=== PATIENT | female | born 1935 | race Caucasian/White ===

== ENCOUNTER → 2018-11-08 09:36 | Outpatient (CLI) | payer MEDICARE, SELFPAY | PROVIDERS: PCP Internal Medicine; Visit Provider Internal Medicine | DX: Z78.0 Asymptomatic menopausal state (principal) | CPT/HCPCS: 77080 ==

== ENCOUNTER → 2019-01-23 13:42 | Outpatient (CLI) | payer MEDICARE, SELFPAY ==
--- NOTE | 2019-01-23 | DI.ECHO.S_ITS ---
[facility] +---------+ : : [address] [place] : : : : [id number] : : : : Phone: [phone] Echocardiogram Report + :Name: BONILLA SOLIS Study Date: 01/23/2019 Height: 67 in : :[facility] Weight: 175 lb : : Gender: Female BSA: 1.9 m2 : :: 1935 Age: 83 yrs BP: 142/48 mmHg: :Reason For Study: Aortic valve replacement - bioprosthetic : :Ordering Physician: Dr. Jonny Boydformed By: Trina Varela : :Referring: Jing Pond : + Interpretation Summary Moderate concentric left ventricular hypertrophy with ejection fraction 60- 65%. Moderately dilated left atrium. The bioprosthetic aortic valve is well seated. Mild to moderate perivalvular aortic regurgitation. Moderate to severe mitral annular calcification. Mild mitral regurgitation. Comparison is made with the echocardiogram of 05-21-17, LV wall thickness has increased and aortic regurgitation has worsen. Procedure: A two-dimensional transthoracic echocardiogram with color flow and Doppler was performed. The study quality was technically good. Comparison is made with the echocardiogram of 05-21-17. The patient has a paced rhythm. Left Ventricle: The left ventricle is borderline dilated. There is moderate concentric left ventricular hypertrophy. The ejection fraction is estimated to be 60-65%. Septal motion is consistent with conduction abnormality. There are no other obvious focal wall motion abnormalities. Diastolic function could not be accurately assessed due to unobtainable data. Right Ventricle: The right ventricle grossly appears normal in size with probable normal systolic function. Atria: The left atrium is moderately dilated. Right atrial size is normal. The interatrial septum is intact with no evidence for an atrial septal defect. Mitral Valve: The mitral valve leaflets appear mildly thickened, but open well. There is moderate to severe mitral annular calcification. There is mild mitral regurgitation. Aortic Valve: There is a bioprosthetic aortic valve. The prosthetic aortic valve is well-seated. There is no aortic valve stenosis. The calculated aortic valve area is 1.1 cm2. The peak aortic velocity is 2.8 m/sec. The peak aortic velocity on the previous exam was 2.8 m/sec. The aortic valve mean gradient is 16 mmHg. There is mild to moderate aortic regurgitation. Tricuspid Valve: The tricuspid valve is normal in structure and function. There is trace tricuspid regurgitation. The right ventricular systolic pressure is estimated to be at least 27 mmHg based on an estimated right atrial pressure of 3 mm Hg. Pulmonic Valve: The pulmonic valve is normal in structure and function. There is trace pulmonic regurgitation. Great Vessels: The aortic root is normal size. The ascending aorta is normal in size. The aortic arch is at the upper limits of normal in size. The IVC is of normal diameter and collapses greater than 50% with a sniff. This suggests a low right atrial pressure of 3 mm Hg. Pericardium/ Pleura There is no pericardial effusion. There is no pleural effusion. MMode/2D Measurements & Calculations LVIDd: 5.8 cm LVOT diam: 1.9 cm LVIDs: 3.3 cm Ao root diam: 2.6 cm FS: 43.4 % Aortic Jxn: 2.9 cm EPSS: 1.5 cm asc Aorta Diam: 3.4 cm IVSd: 1.4 cm Ao Arch Diam (Prox Trans): 3.1 cm LVPWd: 0.75 cm LV evans. diameter/BSA (cm/m^2): 3.0 LV sys. diameter/BSA (cm/m^2): 1.7 LA dimension: 3.0 cm RA long axis: 4.9 cm LA A2 area: 25.0 cm2 RA area: 13.8 cm2 LA A4 area: 26.7 cm2 RA vol: 32.9 ml LA length (vol): 6.0 cm RA : 17.2 ml/m2 LA vol: 95.0 ml IVC diam: 1.1 cm LA vol index: 49.7 ml/m2 RVDd major: 5.6 cm RVD1 (basal): 3.0 cm RVD2 (mid): 2.9 cm Doppler Measurements & Calculations Ao V2 max: 281.1 cm/sec LVOT Max Scooby: 104.3 cm/sec Ao V2 mean: 181.2 cm/sec LV V1 max P.3 mmHg Ao max P.6 mmHg LV V1 VTI: 21.1 cm Ao mean P.6 mmHg SADE(I,D): 0.95 cm2 Ao V2 VTI: 66.3 cm SADE(V,D): 1.1 cm2 sev ratio: 0.32 SADE indexed to BSA (cm^2/m^2): 0.50 MV E max scooby: 117.5 cm/sec TR max scooby: 246.6 cm/sec MV A max scooby: 198.5 cm/sec TR max P.3 mmHg MV E/A: 0.59 PA V2 max: 90.1 cm/sec MV dec time: 0.28 sec PA V2 mean: 62.0 cm/sec MV P1/2t: 84.5 msec PA mean P.8 mmHg MVA(VTI): 1.4 cm2 PA Accel Time: 0.18 sec MV V2 mean: 107.3 cm/sec MV P1/2t max scooby: 119.6 cm/sec MV mean P.6 mmHg MVA(P1/2t): 2.6 cm2 MV V2 VTI: 45.8 cm SV(LVOT): 62.7 ml Electronically signed by: Jing Pond on Reading Physician:01/24/2019 10:08 AM
== END ==
PROVIDERS: PCP Internal Medicine; Referring Provider Internal Medicine Interventional Cardiology; Visit Provider Internal Medicine
DX: I08.0 Rheumatic disorders of both mitral and aortic valves (principal); Z95.2 Presence of prosthetic heart valve
CPT/HCPCS: 93306

== ENCOUNTER → 2019-07-21 14:11 | Outpatient (CLI) | payer MEDICARE, SELFPAY ==
[2019-07-21 15:16] LABS: HEMOLYSIS < 15 (0-50); Iron 99 ug/dL (37-170)
[2019-07-21 15:26] LABS: Percent Iron Saturation 28 % (15-50); Total Iron Binding Capacity 353 ug/dL (265-497); Transferrin 295 mg/dL (206-381)
[2019-07-21 17:22] LABS: Ferritin 20.6 ng/mL (11.1-264)
== END ==
PROVIDERS: PCP Internal Medicine; Visit Provider Internal Medicine
DX: D50.9 Iron deficiency anemia, unspecified (principal)
CPT/HCPCS: 36415; 82728; 83540; 83550

== ENCOUNTER 2020-01-07 13:33 | Emergency (ER) | payer MEDICARE, SELFPAY ==
[2020-01-07 14:01] VITALS: BP 143/65; PULSE 94; RESP 24; TEMP 36.4; O2SAT 100; BMI 25.0
--- NOTE | 2020-01-07 14:08 | ED.RECABL ---
HPI - Recheck/Abnormal Lab/Rx <SAMANTHA Shukla - Last Filed: 01/08/20 02:24> General Chief Complaint: Recheck/Abnormal Lab/Rx Stated Complaint: Wants Blood tested. Clinic is closed Time Seen by Provider: 01/07/20 13:47 Source: patient Mode of arrival: Ambulatory Limitations: no limitations History of Present Illness HPI narrative: This is a 84-year-old female, former smoker, who presents to ED with the family with chief complain of ongoing generalize weakness, fatigue and would like her blood count checked. Patient reports initial onset of gradual weakness and fatigue started about 3.5 years ago when she had trouble with aortic valve and had TAVR done at . Then she developed GI bleed in small intestine and had cauterization 3 times so far [address] Ferrara who practices in [facility] and had procedures done in [facility]. Patient states she had several camera colonoscopy in the past and last 1 was done in 08/04/2019 and another GI procedure was set up in November but this has been post bounded due to Covid 19 and them aches. Patient reports she has seen Dr. Nicolas, Metal Furniture Polisher, at [facility] during last fall and was told there was a small valve leakage and had echocardiogram scheduled 2 months ago which also has been postponed it. Patient denies chest pain, dyspnea, dizziness, blood in her stools or urine or abdominal discomfort. Patient states is not able to tolerate anticoagulants and currently takes baby aspirin daily along lisinopril, atorvastatin, and iron pills 3 times a day. Related Data Home Medications Medication Instructions Recorded Confirmed pravastatin 40 mg PO HS #0 03/31/16 11/30/18 FERROUS SULFATE (IRON) #0 01/22/17 11/30/18 lisinopril 10 mg PO QDAY #0 08/15/17 11/30/18 Allergies Allergy/AdvReac Type Severity Reaction Status Date / Time ezetimibe [EZETIMIBE] Allergy Unknown Verified 01/07/20 14:00 simvastatin [SIMVASTATIN] AdvReac Intermediate MYALGIAS Verified 01/07/20 14:00 Review of Systems <SAMANTHA Shukla - Last Filed: 01/08/20 02:24> Review of Systems Narrative: General: Denies fever, chills, (+) fatigue, malaise, sweats. HEENT: Denies sinus pain, ear pain, sore throat, difficulty swallowing, dizziness. Respiratory: Denies dyspnea, cough, wheezing, hemoptysis, sputum. Cardiovascular: Denies chest pain, palpitations, orthopnea, edema. Gastrointestinal: Denies nausea, vomiting, abdominal pain, diarrhea, constipation, melena. : Denies dysuria, frequency, incontinence, hematuria, urinary retention. Musculoskeletal: Denies weakness, joint pain or bony pain. Skin: Denies rash, skin lesions, or other. Neurologic: Denies weakness, headache, numbness, change in speech, confusion, seizures, incoordination. Psychiatric: No concerning psychosocial issues. 12-point review of systems is negative except for those stated above. Patient History <SAMANTHA Shukla - Last Filed: 01/08/20 02:24> Medical History (Updated 01/07/20 @ 15:31 by SAMANTHA Shukla) Hyperlipidemia (Acute) Hypertension (Acute) Surgical History (Updated 01/07/20 @ 14:15 by SAMANTHA Shukla) S/P TAVR (transcatheter aortic valve replacement) (Acute) Social History Smoking Status: Former smoker Smoking Status: Former smoker alcohol intake frequency: holidays/special occasions only Substance Use Type: does not use Exam <SAMANTHA Shukla - Last Filed: 01/08/20 02:24> Narrative Exam Narrative: GEN: Alert, oriented x 3, well appearing and nourished, and in no acute distress. Head: Normal cephalic, atraumatic. No scalp or temporal tenderness, palpable mass or rash. EYES: Pupils are equal, round, and reactive to light and accommodation. Extraocular muscles are intact bilaterally. There is no subconjunctival hemorrhage, exudate and sclera non-icteric with light pink conjunctival. ENT: Hearing grossly intact. Nose without bleeding, purulent discharge or deviation. Facial sinuses nontender to palpate. Mucous membrane moist, no mucosal lesion. Throat without erythema, tonsillar hypertrophy or exudate. Uvula in midline, airway patent. Neck: Trachea in midline. No JVD, non-tender without lymphadenopathy. No masses or thyroid megaly. Supple, non-tender and no meningeal signs. CARDIAC: Normal regular rate and rhythm without gallops, or rubs but with murmur. No chest wall tenderness. No peripheral edema, cyanosis or pallor. Capillary refill is less than 2 seconds. RESPIRATORY: Lungs are clear to auscultate bilaterally. No cough, wheezes, rales, or rhonchi. No stridor, respiratory distress, increase work of breathing, or accessary muscle used. ABD: Abdomen soft, nontender and non-distended. No guarding or rebound tenderness to palpate. Bowel sounds are normal in all 4 quadrants. There is no palpable masses or organomegaly. EXT: Full painless ROM of all extremities with no loss of sensation, strength, effusion or edema. SKIN: Warm, dry, normal color for patient. No erythema, lesions or rash over visible areas. BACK: Nontender without deformity or crepitance. No flank tenderness. NEUROLOGICAL: Alert and oriented to place, time and person. Sensation and motor function intact bilaterally. No facial droops, dysphasia. PSYCHIATRIC: Good judgement and reason, without hallucinations, abnormal affect or abnormal behaviors during the examination. Initial Vital Signs Initial Vital Signs: Vital Signs Temperature 97.6 F 01/07/20 14:01 Pulse Rate 94 H 01/07/20 14:01 Respiratory Rate 24 01/07/20 14:01 Blood Pressure 143/65 H 01/07/20 14:01 Pulse Oximetry 100 01/07/20 14:01 <Pooja Stokes MD - Last Filed: 01/13/20 21:05> Initial Vital Signs Initial Vital Signs: Vital Signs Temperature 97.6 F 01/07/20 14:01 Pulse Rate 94 H 01/07/20 14:01 Respiratory Rate 24 01/07/20 14:01 Blood Pressure 143/65 H 01/07/20 14:01 Pulse Oximetry 100 01/07/20 14:01 Scores <SAMANTHA Shukla - Last Filed: 01/08/20 02:24> GCS Chinedu coma scale eye opening: Spontaneous Chinedu coma scale verbal response: Orientated Chinedu coma scale motor response: Obey commands Chinedu coma scale total score: 15 Course <SAMANTHA Shukla - Last Filed: 01/08/20 02:24> Orders Ordered: ED Orders 01/07/20 13:50 Complete Blood Count AUTO DIFF Stat Comprehensive Metabolic Panel Stat Lipase Stat Partial Thromboplastin Time Stat Prothrombin Time INR Stat Type and Screen Stat Vital Signs Vital signs: Vital Signs - 8 hr 01/07/20 14:01 Temperature 97.6 F Pulse Rate 94 H Respiratory Rate 24 Blood Pressure 143/65 H Pulse Oximetry 100 <Pooja Stokes MD - Last Filed: 01/13/20 21:05> Orders Ordered: ED Orders 01/07/20 13:50 Complete Blood Count AUTO DIFF Stat Comprehensive Metabolic Panel Stat Lipase Stat Partial Thromboplastin Time Stat Prothrombin Time INR Stat Type and Screen Stat Vital Signs Vital signs: Vital Signs - 8 hr 01/07/20 14:01 Temperature 97.6 F Pulse Rate 94 H Respiratory Rate 24 Blood Pressure 143/65 H Pulse Oximetry 100 MDM - Recheck/Abnormal Lab/Rx <SAMANTHA Shukla - Last Filed: 01/08/20 02:24> Differential Diagnosis Differential diagnosis: Likely other (Anemia, GI bleed, electrolyte imbalance, acute kidney injury, dehydration) Medical Records Attestation: I reviewed the patient's medical records. Lab Data Attestation: I reviewed the patient's lab results. Result diagrams: 01/07/20 13:50 01/07/20 13:50 Labs: Lab Results 01/07/20 01/07/20 01/07/20 Range/Units 13:50 13:50 13:50 WBC 10.0 (4.5-11.0) X10^3/uL RBC 2.85 L (4.0-5.2) X10^6/uL Hgb 9.2 L (12.0-16.0) g/dL Hct 26.8 L (36-46) % MCV 94.2 (80-100) fL MCH 32.2 (26-34) PG MCHC 34.2 (30-36) % RDW 14.4 (11.6-14.8) % Plt Count TNP Neut % (Auto) 78.3 H (50-75) % Lymph % (Auto) 12.4 L (25-40) % [place] % (Auto) 6.9 (3-14) % Eos % (Auto) 1.4 L (2-4) % Baso % (Auto) 1.0 (0-2) % Neut # (Auto) 7800 H (0699-5772) /uL Lymph # (Auto) 1200 (5872-5601) /uL [place] # (Auto) 700 (0-900) /uL Eos # (Auto) 100 (0-450) /uL Baso # (Auto) 100 (0-100) /uL Platelet Estimate Adequate on smear RBC Morphology Normal morphology PT 12.4 (10.1-12.7) SECONDS INR 1.1 (0.9-1.3) APTT 22 L (26.4-36.2) SECONDS Sodium 129 L (137-145) mmol/L Potassium 4.6 (3.4-5.1) mmol/L Chloride 99 (98-107) mmol/L Carbon Dioxide 19 L (22-32) mmol/L BUN 25 H (7-17) mg/dL Creatinine 1.06 H (0.52-1.04) mg/dL Estimated GFR 49.5 L (>60) mL/min BUN/Creatinine Ratio 23.6 H (6-22) Glucose 133 H (80-110) mg/dL Calcium 9.6 (8.4-10.2) mg/dL Total Bilirubin 0.3 (0.2-1.3) mg/dL AST 30 (14-36) IU/L ALT 14 (<35) IU/L Alkaline Phosphatase 103 (38-126) U/L Total Protein 8.1 (6.3-8.2) g/dL Albumin 4.6 (3.5-5.0) g/dL Globulin 3.5 (1.7-4.1) g/dL Albumin/Globulin Ratio 1.3 (1.0-2.8) Lipase 229 (23-300) U/L Blood Type Antibody Screen Antibody Identification Direct Antiglob Test 01/07/20 Range/Units 13:50 WBC (4.5-11.0) X10^3/uL RBC (4.0-5.2) X10^6/uL Hgb (12.0-16.0) g/dL Hct (36-46) % MCV (80-100) fL MCH (26-34) PG MCHC (30-36) % RDW (11.6-14.8) % Plt Count Neut % (Auto) (50-75) % Lymph % (Auto) (25-40) % [place] % (Auto) (3-14) % Eos % (Auto) (2-4) % Baso % (Auto) (0-2) % Neut # (Auto) (2833-1588) /uL Lymph # (Auto) (3180-3610) /uL [place] # (Auto) (0-900) /uL Eos # (Auto) (0-450) /uL Baso # (Auto) (0-100) /uL Platelet Estimate RBC Morphology PT (10.1-12.7) SECONDS INR (0.9-1.3) APTT (26.4-36.2) SECONDS Sodium (137-145) mmol/L Potassium (3.4-5.1) mmol/L Chloride (98-107) mmol/L Carbon Dioxide (22-32) mmol/L BUN (7-17) mg/dL Creatinine (0.52-1.04) mg/dL Estimated GFR (>60) mL/min BUN/Creatinine Ratio (6-22) Glucose (80-110) mg/dL Calcium (8.4-10.2) mg/dL Total Bilirubin (0.2-1.3) mg/dL AST (14-36) IU/L ALT (<35) IU/L Alkaline Phosphatase (38-126) U/L Total Protein (6.3-8.2) g/dL Albumin (3.5-5.0) g/dL Globulin (1.7-4.1) g/dL Albumin/Globulin Ratio (1.0-2.8) Lipase (23-300) U/L Blood Type AB Positive Antibody Screen Positive Antibody Identification Anti-M Direct Antiglob Test Negative MDM Narrative Medical decision making narrative: 84-year-old female who presents to ED in request of blood test to check her anemia since she was having ongoing generalized weakness for last 6 months without chest pain, breathing difficulty, dizziness, or bright red rectal bleeding. Patient reports she has been having GI bleed and had 3 cauterizing procedures done in small intestine by who practices in [facility] but who does procedures in [facility]. Patient was scheduled for another procedure in the end of November this year for GI bleed but this has been deferred due to Covid 19 pandemics. Patient reports she is not currently taking anticoagulants but takes 1 baby aspirin daily. She had TAVR procedure done about 3.5 years ago and sees lead software tester routinely. Last echocardiogram was done in January 2019 and was told that she has mild to moderate aortic regurgitation without aortic valve stenosis. Echocardiogram result shows she has ejection fraction of 60-65%. Physical exam was benign including abdominal exam. Dr. Love's office was contacted to find out the patient's most recent H&H but was informed that there computer system has crashed over the weekend and unable to provide this information. Today's H&H was 9.2/26.8 which is slightly lower than her previous baseline of 10.9/32.2 in 12/20/2017. Patient states last hematocrit was 25 but she is unable to recall hemoglobin level. CBC test was on able to provide platelet counts but he was smear test with normal morphology. Slightly decreased sodium level of 129 which has been the patient's baseline (from 127-131) in the past. BUN was 19, creatinine of 1.06, estimated GFR of 49.5 which is slightly decreased from previous level of Cr of 0.9 with eGFR of >60. Patient advised to adequately hydrate and to follow-up with Dr. Love's office for repeat blood test for CBC, kidney function test and sodium levels. Dr. Love's office has contacted to arrange the appointment and was informed that the office will contact the patient. The patient advised to contact Dr. Ferrara's office to inform her blood test results to follow-up for sooner procedure appointment. Return precautions were discussed with the patient and patient verbalized understanding and agrees with the treatment plan. <Pooja Stokes MD - Last Filed: 01/13/20 21:05> Lab Data Labs: Lab Results 01/07/20 01/07/20 01/07/20 Range/Units 13:50 13:50 13:50 WBC 10.0 (4.5-11.0) X10^3/uL RBC 2.85 L (4.0-5.2) X10^6/uL Hgb 9.2 L (12.0-16.0) g/dL Hct 26.8 L (36-46) % MCV 94.2 (80-100) fL MCH 32.2 (26-34) PG MCHC 34.2 (30-36) % RDW 14.4 (11.6-14.8) % Plt Count TNP Neut % (Auto) 78.3 H (50-75) % Lymph % (Auto) 12.4 L (25-40) % [place] % (Auto) 6.9 (3-14) % Eos % (Auto) 1.4 L (2-4) % Baso % (Auto) 1.0 (0-2) % Neut # (Auto) 7800 H (6881-5612) /uL Lymph # (Auto) 1200 (0910-9333) /uL [place] # (Auto) 700 (0-900) /uL Eos # (Auto) 100 (0-450) /uL Baso # (Auto) 100 (0-100) /uL Platelet Estimate Adequate on smear RBC Morphology Normal morphology PT 12.4 (10.1-12.7) SECONDS INR 1.1 (0.9-1.3) APTT 22 L (26.4-36.2) SECONDS Sodium 129 L (137-145) mmol/L Potassium 4.6 (3.4-5.1) mmol/L Chloride 99 (98-107) mmol/L Carbon Dioxide 19 L (22-32) mmol/L BUN 25 H (7-17) mg/dL Creatinine 1.06 H (0.52-1.04) mg/dL Estimated GFR 49.5 L (>60) mL/min BUN/Creatinine Ratio 23.6 H (6-22) Glucose 133 H (80-110) mg/dL Calcium 9.6 (8.4-10.2) mg/dL Total Bilirubin 0.3 (0.2-1.3) mg/dL AST 30 (14-36) IU/L ALT 14 (<35) IU/L Alkaline Phosphatase 103 (38-126) U/L Total Protein 8.1 (6.3-8.2) g/dL Albumin 4.6 (3.5-5.0) g/dL Globulin 3.5 (1.7-4.1) g/dL Albumin/Globulin Ratio 1.3 (1.0-2.8) Lipase 229 (23-300) U/L Blood Type Antibody Screen Antibody Identification Direct Antiglob Test 01/07/20 Range/Units 13:50 WBC (4.5-11.0) X10^3/uL RBC (4.0-5.2) X10^6/uL Hgb (12.0-16.0) g/dL Hct (36-46) % MCV (80-100) fL MCH (26-34) PG MCHC (30-36) % RDW (11.6-14.8) % Plt Count Neut % (Auto) (50-75) % Lymph % (Auto) (25-40) % [place] % (Auto) (3-14) % Eos % (Auto) (2-4) % Baso % (Auto) (0-2) % Neut # (Auto) (3000-1589) /uL Lymph # (Auto) (4672-7812) /uL [place] # (Auto) (0-900) /uL Eos # (Auto) (0-450) /uL Baso # (Auto) (0-100) /uL Platelet Estimate RBC Morphology PT (10.1-12.7) SECONDS INR (0.9-1.3) APTT (26.4-36.2) SECONDS Sodium (137-145) mmol/L Potassium (3.4-5.1) mmol/L Chloride (98-107) mmol/L Carbon Dioxide (22-32) mmol/L BUN (7-17) mg/dL Creatinine (0.52-1.04) mg/dL Estimated GFR (>60) mL/min BUN/Creatinine Ratio (6-22) Glucose (80-110) mg/dL Calcium (8.4-10.2) mg/dL Total Bilirubin (0.2-1.3) mg/dL AST (14-36) IU/L ALT (<35) IU/L Alkaline Phosphatase (38-126) U/L Total Protein (6.3-8.2) g/dL Albumin (3.5-5.0) g/dL Globulin (1.7-4.1) g/dL Albumin/Globulin Ratio (1.0-2.8) Lipase (23-300) U/L Blood Type AB Positive Antibody Screen Positive Antibody Identification Anti-M Direct Antiglob Test Negative Discharge Plan Departure Patient Disposition: Home Clinical Impression: History of GI bleed, Decreased renal function Anemia Qualifiers: Anemia type: unspecified type Qualified Code(s): D64.9 - Anemia, unspecified Discharge Date/Time: 01/07/20 15:47 Instructions: DI for Anemia of Chronic Disease, Gastrointestinal Bleeding, DI for Acute Kidney Injury Activity Restrictions/Additional Instructions: You have been diagnosed with [anemia, history of GI bleed and decreased kidney function test. Today's hemoglobin and hematocrit results are 9.2/26.8. Sodium levels 129 and previous sodium level has been around this level. Kidney function test shows of BUN of 25, creatinine level of 1.06 with estimated GFR of 49.5. Please hydrate adequately. ]. What to do: *Take your medications as directed. Please continue with your current medications of iron pills. *Follow up with your primary care provider in 2-3 days, call for an appointment. Let them know you were seen in the ED and that we asked you to be seen in follow up. The clinic will call you to make a follow-up appointment. Dr. Love tells office has been contacted and the nurse has your information. Please contact Dr. Ferrara's office to follow-up with another procedure sooner. *Return to ED if you have any new, worsening, or concerning symptoms, such as [chest pain, breathing difficulty, unable to tolerate fluids, fever, abdominal pain, fainting like symptoms, or any acute concerns]. Prescriptions: No Action pravastatin 40 MG tablet 40 mg PO HS Qty: 0 RF: 0 FERROUS SULFATE (IRON) Qty: 0 RF: 0 lisinopril 10 MG tablet 10 mg PO QDAY Qty: 0 RF: 0 Referrals: Jonny Love MD [Primary Care Provider] - <Pooja Stokes MD - Last Filed: 01/13/20 21:05> Cosign ED Attending Cosignature Attestation: I was immediately available in the department for consultation throughout this patient's visit. I agree with documentation as above. Pooja Stokes MD
[2020-01-07 14:10] LABS: INR 1.1 (0.9-1.3); Prothrombin Time 12.4 SECONDS (10.1-12.7)
[2020-01-07 14:12] LABS: Basophils Absolute Auto 100 /uL (0-100); Eosinophils Absolute Auto 100 /uL (0-450); Eosinophils Percent Auto 1.4 % (2-4); Mean Corpuscular HGB Conc 34.2 % (30-36); Monocytes Absolute Auto 700 /uL (0-900)
[2020-01-07 14:13] LABS: PTT Partial Thromboplastin Tim 22 SECONDS (26.4-36.2)
[2020-01-07 14:15] LABS: Alanine Aminotransferase 14 IU/L (<35); Albumin 4.6 g/dL (3.5-5.0); Albumin Globulin Ratio 1.3 (1.0-2.8); Alkaline Phosphatase 103 U/L (38-126); Aspartate Aminotransferase 30 IU/L (14-36); BUN Creatinine Ratio 23.6 (6-22); Bilirubin Total 0.3 mg/dL (0.2-1.3); Blood Urea Nitrogen 25 mg/dL (7-17); Calcium 9.6 mg/dL (8.4-10.2); Carbon Dioxide 19 mmol/L (22-32); Chloride 99 mmol/L (98-107); Estimated Glomerular Filt Rate 49.5 mL/min (>60); Globulin 3.5 g/dL (1.7-4.1); Glucose 133 mg/dL (80-110); HEMOLYSIS 20 (0-50); Lipase 229 U/L (23-300); Potassium 4.6 mmol/L (3.4-5.1); Sodium 129 mmol/L (137-145); Total Protein 8.1 g/dL (6.3-8.2)
[2020-01-07 14:17] LABS: Hematocrit 26.8 % (36-46); Hemoglobin 9.2 g/dL (12.0-16.0); Lymphocytes Absolute Auto 1200 /uL (1100-4500); Lymphocytes Percent Auto 12.4 % (25-40); Mean Corpuscular Hemoglobin 32.2 PG (26-34); Mean Corpuscular Volume 94.2 fL (80-100); Monocytes Percent Auto 6.9 % (3-14); Neutrophils Absolute Auto 7800 /uL (1500-7000); Neutrophils Percent Auto 78.3 % (50-75); Red Blood Cell Count 2.85 X10^6/uL (4.0-5.2); Red Cell Distribution Width 14.4 % (11.6-14.8)
[2020-01-07 14:19] LABS: Add Manual Diff / Slide Review SLIDE REVIEW
[2020-01-07 14:32] LABS: Platelet Estimate Adequate on smear; RBC Morphology Normal Morphology
[2020-01-07 14:49] VITALS: BP 117/54; PULSE 68; RESP 15; O2SAT 100
[2020-01-07 15:39] VITALS: BP 129/58; PULSE 61; RESP 20; O2SAT 100
== END 2020-01-07 15:47 | disposition home or self-care (01) ==
PROVIDERS: Emergency Provider Nurse Practitioner Family; PCP Internal Medicine
DX: N28.9 Disorder of kidney and ureter, unspecified (principal); D64.9 Anemia, unspecified; Z87.19 Personal history of other diseases of the digestive system
CPT/HCPCS: 80053; 83690; 85025; 85610; 85730; 86850; 86870; 86880; 86900; 86901; 99283

== ENCOUNTER → 2020-01-19 10:34 | Outpatient (CLI) | payer MEDICARE, SELFPAY ==
[2020-01-19 12:20] LABS: HEMOLYSIS < 15 (0-50); Iron 161 ug/dL (37-170)
[2020-01-19 12:31] LABS: Percent Iron Saturation 47 % (15-50); Total Iron Binding Capacity 344 ug/dL (265-497); Transferrin 276 mg/dL (206-381)
[2020-01-19 12:45] LABS: Ferritin 19 ng/mL (11-264)
== END ==
PROVIDERS: PCP Internal Medicine; Referring Provider Internal Medicine Gastroenterology; Visit Provider Internal Medicine Gastroenterology
DX: K31.819 Angiodysplasia of stomach and duodenum without bleeding (principal); K55.20 Angiodysplasia of colon without hemorrhage; D64.9 Anemia, unspecified
CPT/HCPCS: 36415; 82728; 83540; 83550

== ENCOUNTER → 2020-03-03 15:04 | Outpatient (CLI) | payer MEDICARE, SELFPAY ==
[2020-03-03 16:07] LABS: Reticulocyte Count, Percent 5.5 % (1.06-2.63)
[2020-03-03 16:10] LABS: Add Manual Diff / Slide Review NO; Basophils Absolute Auto 100 /uL (0-100); Basophils Percent Auto 1.3 % (0-2); Eosinophils Absolute Auto 100 /uL (0-450); Eosinophils Percent Auto 1.2 % (2-4); Lymphocytes Absolute Auto 900 /uL (1100-4500); Lymphocytes Percent Auto 15.8 % (25-40); Mean Corpuscular HGB Conc 34.2 % (30-36); Mean Corpuscular Hemoglobin 33.1 PG (26-34); Mean Corpuscular Volume 96.9 fL (80-100); Monocytes Absolute Auto 400 /uL (0-900); Monocytes Percent Auto 7.9 % (3-14); Neutrophils Absolute Auto 4100 /uL (1500-7000); Neutrophils Percent Auto 73.8 % (50-75); Platelet Count 328 X10^3/uL (150-400); Red Blood Cell Count 1.87 X10^6/uL (4.0-5.2); Red Cell Distribution Width 13.9 % (11.6-14.8); White Blood Cell Count 5.6 X10^3/uL (4.5-11.0)
[2020-03-03 16:13] LABS: Hemoglobin 6.2 g/dL (12.0-16.0)
[2020-03-03 16:14] LABS: Hematocrit 18.2 % (36-46)
[2020-03-03 16:21] LABS: HEMOLYSIS < 15 (0-50); Iron 66 ug/dL (37-170)
[2020-03-03 16:33] LABS: Percent Iron Saturation 19 % (15-50); Total Iron Binding Capacity 356 ug/dL (265-497); Transferrin 277 mg/dL (206-381)
== END ==
PROVIDERS: PCP Internal Medicine; Referring Provider Internal Medicine; Visit Provider Internal Medicine
DX: D50.9 Iron deficiency anemia, unspecified (principal); K92.2 Gastrointestinal hemorrhage, unspecified
CPT/HCPCS: 36415; 83540; 83550; 85025; 85045

== ENCOUNTER 2020-03-03 17:47 | Emergency (ER) | payer MEDICARE, SELFPAY ==
[2020-03-03] VITALS (18 sets, daily range): BP systolic 115–179; BP diastolic 47–91; PULSE 74–86; RESP 16–38; TEMP 36.5–36.8; O2SAT 92–100; BMI 25.0
--- NOTE | 2020-03-03 17:54 | ED.WEAKNESS ---
HPI - Weakness General Chief complaint: Recheck/Abnormal Lab/Rx Stated complaint: Needs blood transfusion Time Seen by Provider: 03/03/20 17:48 Source: patient and EMS Mode of arrival: EMS Limitations: no limitations History of Present Illness HPI Narrative: 84F former smoker with history of GI bleed and TAVR presents with days to weeks of increasing weakness and was told by her PCP that her blood count was low and that she'd need to come in for a transfusion. She denies dizziness, but is short of breath and lightheaded. She's had no fever or chills nor N/V/D. She does admit to some very dark and tarry stools and does report a history of GI bleed. She takes no blood thinners. She has a reported history of GI bleeds from AV and was most recently at [facility] in [place] on 08/04/2019. She denies heavy drinking, history of liver trouble, use of anticoagulants or NSAIDs. MD Complaint: generalized weakness Onset (ago): day(s) Duration: constant Location: generalized Migration: none Severity: moderate Related Data Home Medications Medication Instructions Recorded Confirmed pravastatin 40 mg PO HS #0 03/31/16 11/30/18 FERROUS SULFATE (IRON) #0 01/22/17 11/30/18 lisinopril 10 mg PO QDAY #0 08/15/17 11/30/18 Allergies Allergy/AdvReac Type Severity Reaction Status Date / Time ezetimibe [EZETIMIBE] Allergy Unknown Verified 01/07/20 14:00 simvastatin [SIMVASTATIN] AdvReac Intermediate MYALGIAS Verified 01/07/20 14:00 Review of Systems Constitutional Constitutional: Denies chills, Denies fatigue, Denies fever(s), Denies frequent falls, Denies lethargy and Reports weakness Eyes Eyes: Denies change in vision, Denies eye discharge, Denies irritation and Denies loss of vision ENT Ears, Nose, Mouth, and Throat: Denies change in voice, Denies dizziness, Denies neck pain, Denies sore throat and Denies throat swelling Cardiovascular Cardiovascular: Denies chest pain, Denies irregular heart rhythm, Denies lightheadedness, Denies palpitations, Denies dyspnea, Denies dyspnea on exertion and Denies orthopnea Respiratory Respiratory: Denies cough, Denies dyspnea, Denies dyspnea on exertion and Denies wheezing Gastrointestinal Gastrointestinal: Denies abdominal pain, Reports melena, Denies change in bowel habits, Denies diarrhea, Denies nausea and Denies vomiting Musculoskeletal Musculoskeletal: Denies neck pain and Denies numbness Integumentary/Breasts Skin/Breast: Denies pruritus, Denies erythema, Denies rash and Denies wounds Neurologic Neurologic: Denies behavioral changes, Denies confusion, Denies dizziness, Denies frequent falls, Denies loss of vision, Denies numbness and Reports weakness Psychiatric Psychiatric: Denies anxiety, Denies behavioral changes, Denies confusion, Denies depression, Denies homicidal ideation and Denies suicidal ideation Endocrine Endocrine: Denies fatigue, Denies flushing and Denies palpitations Hematologic/Lymphatic Hematologic/Lymphatic: Denies easy bruising Allergic/Immunologic Allergic/Immunologic: Denies urticaria, Denies throat swelling and Denies wheezing Patient History Medical History Hyperlipidemia (Acute) Hypertension (Acute) Surgical History S/P TAVR (transcatheter aortic valve replacement) (Acute) Social History Smoking Status: Former smoker Smoking Status: Former smoker alcohol intake frequency: holidays/special occasions only Substance Use Type: does not use Exam Narrative Exam Narrative: GENERAL: [84] year old patient appears stated age. Well-nourished, well-developed patient, in mild distress. HEAD: Atraumatic. Normocephalic. EYES: Pale conjunctiva Pupils equal round and reactive. Extraocular motions intact. No scleral icterus. No injection or drainage. ENT: Nose without bleeding, purulent drainage. Throat without erythema, tonsillar hypertrophy or exudate. Airway patent. NECK: Trachea midline. Non tender CARDIOVASCULAR: Regular rate and rhythm without murmurs, gallops, or rubs. RESPIRATORY: Clear to auscultation. Breath sounds equal bilaterally. No wheezes, rales, or rhonchi. GASTROINTESTINAL: Abdomen soft, non-tender, nondistended. RECTAL: grossly dark, Heme +. 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 BACK: Nontender without deformity or crepitance. No flank tenderness. NEURO: AOx3. SKIN: No rash or erythema of visible areas Initial Vital Signs Initial Vital Signs: Vital Signs Temperature 97.7 F 03/03/20 17:45 Pulse Rate 76 03/03/20 17:45 Respiratory Rate 16 03/03/20 17:45 Blood Pressure 115/47 L 03/03/20 17:45 Pulse Oximetry 92 03/03/20 17:45 Course Orders Ordered: ED Orders 03/03/20 17:54 Complete Blood Count AUTO DIFF Stat Comprehensive Metabolic Panel Stat Packed Cells Stat Prothrombin Time INR Stat Type and Screen Stat Discontinued Medications Pantoprazole Sodium (Protonix) 40 mg IV NOW ONE Stop: 03/03/20 17:49 Last Admin: 03/03/20 18:22 Dose: 40 mg Documented by: RNESTER Consultations Consultation #1: request to Prov for records. 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 Consultation #2: discussion with Dr. Gillis (Gen Surgery), recommends transfer as he cannot care for a bleed of this type (suggested by her history) Consultation #3: call to Prov to orchestrate transfer. Hospitalist happy to accept. COVID NEGATIVE Vital Signs Vital signs: Vital Signs - 8 hr 03/03/20 17:45 03/03/20 18:46 03/03/20 19:00 Temperature 97.7 F Pulse Rate 76 74 76 Respiratory Rate 16 18 25 H Blood Pressure 115/47 L Pulse Oximetry 92 100 100 03/03/20 19:01 03/03/20 19:15 03/03/20 19:17 Temperature Pulse Rate 75 74 74 Respiratory Rate 22 28 H 20 Blood Pressure 145/57 H 118/91 H Pulse Oximetry 100 100 100 03/03/20 19:30 03/03/20 19:31 03/03/20 19:45 Temperature Pulse Rate 79 78 82 Respiratory Rate 21 22 27 H Blood Pressure 149/65 H 150/67 H Pulse Oximetry 100 100 100 03/03/20 20:00 03/03/20 20:15 03/03/20 20:16 Temperature Pulse Rate 79 82 83 Respiratory Rate 24 22 26 H Blood Pressure 148/63 H 179/70 H Pulse Oximetry 100 100 100 03/03/20 20:45 03/03/20 20:46 03/03/20 20:49 Temperature 97.9 F Pulse Rate 81 80 83 Respiratory Rate 35 H 25 H 23 Blood Pressure 151/65 H 151/65 H Pulse Oximetry 03/03/20 21:00 03/03/20 21:01 03/03/20 21:15 Temperature 98.2 F Pulse Rate 81 83 85 Respiratory Rate 38 H 33 H 31 H Blood Pressure 132/60 145/64 H Pulse Oximetry MDM - Weakness Lab Data Result diagrams: 03/03/20 17:54 03/03/20 17:54 Labs: Lab Results 03/03/20 03/03/20 03/03/20 Range/Units 17:54 17:54 17:54 WBC 5.7 (4.5-11.0) X10^3/uL RBC 1.91 L (4.0-5.2) X10^6/uL Hgb 6.3 L* (12.0-16.0) g/dL Hct 18.4 L* (36-46) % MCV 96.4 (80-100) fL MCH 32.9 (26-34) PG MCHC 34.1 (30-36) % RDW 14.4 (11.6-14.8) % Plt Count 333 (150-400) X10^3/uL Neut % (Auto) 74.6 (50-75) % Lymph % (Auto) 14.3 L (25-40) % [place] % (Auto) 8.0 (3-14) % Eos % (Auto) 1.7 L (2-4) % Baso % (Auto) 1.4 (0-2) % Neut # (Auto) 4300 (9423-5325) /uL Lymph # (Auto) 800 L (1178-9977) /uL [place] # (Auto) 500 (0-900) /uL Eos # (Auto) 100 (0-450) /uL Baso # (Auto) 100 (0-100) /uL PT 12.3 (10.1-12.7) SECONDS INR 1.1 (0.9-1.3) Sodium 131 L (137-145) mmol/L Potassium 4.4 (3.4-5.1) mmol/L Chloride 105 (98-107) mmol/L Carbon Dioxide 17 L (22-32) mmol/L BUN 37 H (7-17) mg/dL Creatinine 1.21 H (0.52-1.04) mg/dL Estimated GFR 42.5 L (>60) mL/min BUN/Creatinine Ratio 30.6 H (6-22) Glucose 131 H (80-110) mg/dL Calcium 9.3 (8.4-10.2) mg/dL Total Bilirubin 0.3 (0.2-1.3) mg/dL AST 26 (14-36) IU/L ALT 15 (<35) IU/L Alkaline Phosphatase 76 (38-126) U/L Total Protein 6.7 (6.3-8.2) g/dL Albumin 4.0 (3.5-5.0) g/dL Globulin 2.7 (1.7-4.1) g/dL Albumin/Globulin Ratio 1.5 (1.0-2.8) COVID-19 PCR (Negative) Blood Type Antibody Screen Antibody Identification Crossmatch 03/03/20 03/03/20 Range/Units 17:54 17:55 WBC (4.5-11.0) X10^3/uL RBC (4.0-5.2) X10^6/uL Hgb (12.0-16.0) g/dL Hct (36-46) % MCV (80-100) fL MCH (26-34) PG MCHC (30-36) % RDW (11.6-14.8) % Plt Count (150-400) X10^3/uL Neut % (Auto) (50-75) % Lymph % (Auto) (25-40) % [place] % (Auto) (3-14) % Eos % (Auto) (2-4) % Baso % (Auto) (0-2) % Neut # (Auto) (1101-1125) /uL Lymph # (Auto) (8754-6242) /uL [place] # (Auto) (0-900) /uL Eos # (Auto) (0-450) /uL Baso # (Auto) (0-100) /uL PT (10.1-12.7) SECONDS INR (0.9-1.3) Sodium (137-145) mmol/L Potassium (3.4-5.1) mmol/L Chloride (98-107) mmol/L Carbon Dioxide (22-32) mmol/L BUN (7-17) mg/dL Creatinine (0.52-1.04) mg/dL Estimated GFR (>60) mL/min BUN/Creatinine Ratio (6-22) Glucose (80-110) mg/dL Calcium (8.4-10.2) mg/dL Total Bilirubin (0.2-1.3) mg/dL AST (14-36) IU/L ALT (<35) IU/L Alkaline Phosphatase (38-126) U/L Total Protein (6.3-8.2) g/dL Albumin (3.5-5.0) g/dL Globulin (1.7-4.1) g/dL Albumin/Globulin Ratio (1.0-2.8) COVID-19 PCR Negative (Negative) Blood Type AB Positive Antibody Screen Positive Antibody Identification Anti-M Crossmatch See Detail Urine Dip Bedside Urine Glucose Negative Bedside Urine Bilirubin - Negative Bedside Urine Ketone - Negative Urine Specific [place] 1.015 Bedside Urine Occult Blood - Negative Bedside Urine pH 6.0 Bedside Urine Protein - Negative Bedside Urine Urobilinogen - Negative Bedside Urine Nitrite - Negative Bedside Urine Leukocytes - Negative Esterase Critical Care Time Critical Care Time Critical Care Time: Yes Total Critical Care Time: 30 Attestation: The high probability of a clinically significant, sudden or life threatening deterioration of the [C] system(s) required my full and direct attention, intervention and personal management. The aggregate critical care time was [30] minutes. This time is in addition to time spent performing reported procedures but includes the following: [x] Data Review and interpretation [x] Patient assessment and monitoring of vital signs [x] Documentation [x] Medication orders and management Discharge Plan Departure Patient Disposition: [facility] Clinical Impression: Acute upper gastrointestinal bleeding Anemia Qualifiers: Anemia type: unspecified type Qualified Code(s): D64.9 - Anemia, unspecified Discharge Date/Time: 03/03/20 21:15 Prescriptions: No Action pravastatin 40 MG tablet 40 mg PO HS Qty: 0 RF: 0 FERROUS SULFATE (IRON) Qty: 0 RF: 0 lisinopril 10 MG tablet 10 mg PO QDAY Qty: 0 RF: 0 Referrals: Jonny Love MD [Primary Care Provider] -
[2020-03-03 18:05] LABS: Add Manual Diff / Slide Review NO; Basophils Absolute Auto 100 /uL (0-100); Basophils Percent Auto 1.4 % (0-2); Eosinophils Absolute Auto 100 /uL (0-450); Eosinophils Percent Auto 1.7 % (2-4); Lymphocytes Absolute Auto 800 /uL (1100-4500); Lymphocytes Percent Auto 14.3 % (25-40); Mean Corpuscular HGB Conc 34.1 % (30-36); Mean Corpuscular Hemoglobin 32.9 PG (26-34); Mean Corpuscular Volume 96.4 fL (80-100); Monocytes Absolute Auto 500 /uL (0-900); Neutrophils Absolute Auto 4300 /uL (1500-7000); Neutrophils Percent Auto 74.6 % (50-75); Platelet Count 333 X10^3/uL (150-400); Red Blood Cell Count 1.91 X10^6/uL (4.0-5.2); Red Cell Distribution Width 14.4 % (11.6-14.8); White Blood Cell Count 5.7 X10^3/uL (4.5-11.0)
[2020-03-03 18:07] LABS: Hematocrit 18.4 % (36-46); Hemoglobin 6.3 g/dL (12.0-16.0)
[2020-03-03 18:13] LABS: INR 1.1 (0.9-1.3); Prothrombin Time 12.3 SECONDS (10.1-12.7)
[2020-03-03 18:17] LABS: Alanine Aminotransferase 15 IU/L (<35); Albumin Globulin Ratio 1.5 (1.0-2.8); Alkaline Phosphatase 76 U/L (38-126); Aspartate Aminotransferase 26 IU/L (14-36); BUN Creatinine Ratio 30.6 (6-22); Bilirubin Total 0.3 mg/dL (0.2-1.3); Blood Urea Nitrogen 37 mg/dL (7-17); Calcium 9.3 mg/dL (8.4-10.2); Carbon Dioxide 17 mmol/L (22-32); Chloride 105 mmol/L (98-107); Estimated Glomerular Filt Rate 42.5 mL/min (>60); Globulin 2.7 g/dL (1.7-4.1); Glucose 131 mg/dL (80-110); HEMOLYSIS < 15 (0-50); Potassium 4.4 mmol/L (3.4-5.1); Sodium 131 mmol/L (137-145); Total Protein 6.7 g/dL (6.3-8.2)
[2020-03-03] MEDS: PANTOPRAZOLE 40 MG VIAL IV (18:22)
[2020-03-03 19:35] LABS: COVID19 -Nasal RAPID Negative (Negative)
--- NOTE | 2020-03-03 21:05 | PC.NURSE ---
PT family Carly called and updated on plan of care and transfer to [facility] per pt request.
--- NOTE | 2020-03-03 21:21 | PC.NURSE ---
Blood products infusing at time of transfer, pt tolerated well in ED.
== END 2020-03-03 21:15 | disposition short-term general hospital (02) ==
LOC: ED 18:40
PROVIDERS: Emergency Provider Emergency Medicine; PCP Internal Medicine
DX: K92.2 Gastrointestinal hemorrhage, unspecified (principal); K92.1 Melena; D64.9 Anemia, unspecified; D50.9 Iron deficiency anemia, unspecified
CPT/HCPCS: 36415; 36430; 80053; 81003; 83540; 83550; 85025; 85045; 85610; 86850; 86870; 86900; 86901; 87635; 96374; 99284; 99291; P9016; C9113

== ENCOUNTER → 2020-03-09 19:19 | Outpatient (ROUT) | payer MEDICARE, SELFPAY ==
[2020-03-09 19:49] LABS: Add Manual Diff / Slide Review NO; Basophils Absolute Auto 100 /uL (0-100); Basophils Percent Auto 1.4 % (0-2); Eosinophils Absolute Auto 100 /uL (0-450); Eosinophils Percent Auto 2.2 % (2-4); Hematocrit 26.9 % (36-46); Hemoglobin 9.1 g/dL (12.0-16.0); Lymphocytes Absolute Auto 700 /uL (1100-4500); Lymphocytes Percent Auto 11.7 % (25-40); Mean Corpuscular HGB Conc 33.7 % (30-36); Mean Corpuscular Hemoglobin 32.8 PG (26-34); Mean Corpuscular Volume 97.3 fL (80-100); Monocytes Absolute Auto 500 /uL (0-900); Monocytes Percent Auto 8.8 % (3-14); Neutrophils Absolute Auto 4500 /uL (1500-7000); Neutrophils Percent Auto 75.9 % (50-75); Platelet Count 324 X10^3/uL (150-400); Red Blood Cell Count 2.77 X10^6/uL (4.0-5.2); Red Cell Distribution Width 14.2 % (11.6-14.8)
[2020-03-09 19:50] LABS: HEMOLYSIS < 15 (0-50); Iron 28 ug/dL (37-170)
[2020-03-09 20:01] LABS: Percent Iron Saturation 8 % (15-50); Total Iron Binding Capacity 347 ug/dL (265-497); Transferrin 260 mg/dL (206-381)
[2020-03-09 20:27] LABS: Ferritin 18 ng/mL (11-264)
== END ==
PROVIDERS: PCP Internal Medicine; Visit Provider Internal Medicine
DX: Z09 Encounter for follow-up examination after completed treatment for conditions other than malignant neoplasm (principal)
CPT/HCPCS: 82728; 83540; 83550; 85025

== ENCOUNTER → 2020-04-05 19:28 | Outpatient (ROUT) | payer MEDICARE, SELFPAY ==
[2020-04-05 20:26] LABS: Add Manual Diff / Slide Review NO; Basophils Absolute Auto 0 /uL (0-100); Basophils Percent Auto 0.7 % (0-2); Eosinophils Absolute Auto 100 /uL (0-450); Eosinophils Percent Auto 1.9 % (2-4); Hematocrit 26.1 % (36-46); Hemoglobin 8.6 g/dL (12.0-16.0); Lymphocytes Absolute Auto 1100 /uL (1100-4500); Lymphocytes Percent Auto 16.7 % (25-40); Mean Corpuscular Hemoglobin 29.7 PG (26-34); Monocytes Absolute Auto 700 /uL (0-900); Monocytes Percent Auto 10.5 % (3-14); Neutrophils Absolute Auto 4400 /uL (1500-7000); Neutrophils Percent Auto 70.2 % (50-75); Platelet Count 317 X10^3/uL (150-400); Red Cell Distribution Width 13.3 % (11.6-14.8); White Blood Cell Count 6.3 X10^3/uL (4.5-11.0)
[2020-04-05 20:37] LABS: HEMOLYSIS < 15 (0-50); Iron 39 ug/dL (37-170)
[2020-04-05 20:49] LABS: Percent Iron Saturation 10 % (15-50); Total Iron Binding Capacity 384 ug/dL (265-497); Transferrin 295 mg/dL (206-381)
[2020-04-05 21:12] LABS: Ferritin 13 ng/mL (11-264)
== END ==
PROVIDERS: PCP Internal Medicine; Visit Provider Internal Medicine
DX: Z09 Encounter for follow-up examination after completed treatment for conditions other than malignant neoplasm (principal)
CPT/HCPCS: 82728; 83540; 83550; 85025

== ENCOUNTER → 2020-05-11 19:18 | Outpatient (ROUT) | payer MEDICARE, SELFPAY ==
[2020-05-11 19:52] LABS: HEMOLYSIS < 15 (0-50); Iron 40 ug/dL (37-170)
[2020-05-11 19:54] LABS: Hematocrit 27.2 % (36-46); Hemoglobin 9.2 g/dL (12.0-16.0); Mean Corpuscular HGB Conc 33.7 % (30-36); Mean Corpuscular Hemoglobin 30.2 PG (26-34); Mean Corpuscular Volume 89.7 fL (80-100); Platelet Count 290 X10^3/uL (150-400); Red Blood Cell Count 3.04 X10^6/uL (4.0-5.2); Red Cell Distribution Width 15.9 % (11.6-14.8); White Blood Cell Count 6.3 X10^3/uL (4.5-11.0)
[2020-05-11 19:55] LABS: Aspartate Aminotransferase 21 IU/L (14-36); BUN Creatinine Ratio 21.2 (6-22); Blood Urea Nitrogen 24 mg/dL (7-17); Calcium 9.4 mg/dL (8.4-10.2); Carbon Dioxide 24 mmol/L (22-32); Chloride 96 mmol/L (98-107); Cholesterol 164 mg/dL (140-199); Estimated Glomerular Filt Rate 45.9 mL/min (>60); Glucose 146 mg/dL (80-110); HDL Cholesterol 61 mg/dL (40-60); HEMOLYSIS < 15 (0-50); LDL Cholesterol Calculated 67 mg/dL (<100); Potassium 4.4 mmol/L (3.4-5.1); Sodium 127 mmol/L (137-145); Triglycerides 181 mg/dL (35-150)
[2020-05-11 20:03] LABS: Percent Iron Saturation 12 % (15-50); Total Iron Binding Capacity 344 ug/dL (265-497); Transferrin 267 mg/dL (206-381)
[2020-05-11 20:15] LABS: Neutrophils Absolute Manual 4662 /uL (3000-5900); Total Cells Counted 100
[2020-05-11 20:16] LABS: Platelet Estimate Adequate on smear; RBC Morphology Normal Morphology
[2020-05-11 20:29] LABS: Ferritin 22 ng/mL (11-264)
== END ==
PROVIDERS: PCP Internal Medicine; Visit Provider Internal Medicine
DX: E78.2 Mixed hyperlipidemia (principal); I10 Essential (primary) hypertension; D50.9 Iron deficiency anemia, unspecified
CPT/HCPCS: 80048; 80061; 82728; 83540; 83550; 84450; 85025

== ENCOUNTER → 2020-05-13 14:48 | Outpatient (CLI) | payer MEDICARE, SELFPAY ==
--- NOTE | 2020-05-13 14:58 | DI.ECHO.S_ITS ---
Echocardiogram Report + + :Name: BONILLA SOLIS Study Date: 05/13/2020 Height: 67 in : :[facility] Weight: 161 lb : : Gender: Female BSA: 1.8 m2 : :: 1935 Age: 85 yrs BP: 155/71 mmHg: :Reason For Study: AORTIC STENOSIS : :Ordering Physician: ALIZE, : :KATHERYN Performed By: Nichole Centeno : :Referring: KATHERYN HERRMANN : + + Interpretation Summary Mild concentric left ventricular hypertrophy with ejection fraction 60-65%. Grade I diastolic dysfunction. There is a pacemaker lead in the right ventricle. Severely dilated left atrium. There is a bioprosthetic aortic valve. There is mild perivalvular regurgitation around the prosthetic aortic valve. Moderate to severe mitral annular calcification. Mild mitral regurgitation. Mildly enlarged ascending aorta. Comparison is made with the echocardiogram of 01/23/2019, LV wall thickness has decreased. Procedure: A two-dimensional transthoracic echocardiogram with color flow and Doppler was performed. The study quality was technically adequate. Comparison is made with the echocardiogram of 01/23/2019. The patient was in sinus bradycardia with heart rates between 59-62 bpm during the exam. Left Ventricle: The left ventricle is normal in size. There is mild concentric left ventricular hypertrophy. The ejection fraction is estimated to be 60-65%. Septal motion is consistent with conduction abnormality. There are no other obvious focal wall motion abnormalities. Diastolic parameters suggest a relaxation abnormality of the left ventricle, consistent with probable normal filling pressures. Right Ventricle: The right ventricle is normal in size and function. There is a pacemaker lead in the right ventricle. Atria: The left atrium is severely dilated. Right atrial size is normal. There is no Doppler evidence for an interatrial shunt. Mitral Valve: There is moderate to severe mitral annular calcification. The mitral valve leaflets appear mildly thickened, but open well. There is mild mitral regurgitation. Aortic Valve: There is a bioprosthetic aortic valve. There is mild perivalvular regurgitation around the prosthetic aortic valve. Tricuspid Valve: The tricuspid valve is normal in structure and function. There is trace tricuspid regurgitation. Pulmonic Valve: The pulmonic valve leaflets are thin and pliable; valve motion is normal. There is trace pulmonic regurgitation. Great Vessels: The aortic root is normal size. The ascending aorta is mildly enlarged. The IVC is of normal diameter and collapses greater than 50% with a sniff. This suggests a low right atrial pressure of 3 mm Hg. Pericardium/ Pleura There is no pericardial effusion. There is no pleural effusion. MMode/2D Measurements & Calculations LVIDd: 5.7 cm LVOT diam: 1.9 cm LVIDs: 3.2 cm asc Aorta Diam: 3.4 cm FS: 43.1 % Ao Arch Diam (Prox Trans): 2.4 cm EPSS: 1.4 cm IVSd: 1.2 cm LVPWd: 1.1 cm LV evans. diameter/BSA (cm/m^2): 3.1 LV sys. diameter/BSA (cm/m^2): 1.8 LA A2 area: 29.1 cm2 RA long axis: 4.9 cm LA A4 area: 25.7 cm2 RA area: 13.2 cm2 LA length (vol): 6.3 cm RA vol: 30.6 ml LA vol: 101.2 ml RA : 16.6 ml/m2 LA vol index: 54.9 ml/m2 IVC diam: 0.98 cm RVD1 (basal): 2.7 cm TAPSE: 2.3 cm Doppler Measurements & Calculations Ao V2 max: 316.8 cm/sec LVOT Max Scooby: 113.8 cm/sec Ao V2 mean: 207.3 cm/sec LV V1 max P.2 mmHg Ao max P.2 mmHg LV V1 VTI: 30.4 cm Ao mean P.2 mmHg SADE(I,D): 1.1 cm2 Ao V2 VTI: 75.9 cm SADE(V,D): 1.0 cm2 sev ratio: 0.40 SADE indexed to BSA (cm^2/m^2): 0.60 MV E max scooby: 97.1 cm/sec TR max scooby: 241.9 cm/sec MV A max scooby: 171.8 cm/sec TR max P.4 mmHg MV E/A: 0.57 PA V2 max: 81.7 cm/sec Med Peak E' Scooby: 3.3 cm/sec PA V2 mean: 50.6 cm/sec E/E' med: 29.3 PA mean P.2 mmHg Lat Peak E' Scooby: 4.7 cm/sec PA pr(Accel): 15.6 mmHg E/E' lat: 20.9 E/e' average: 25.1 MV dec time: 0.57 sec MVA(VTI): 1.6 cm2 MV V2 mean: 94.2 cm/sec SV(LVOT): 84.6 ml MV mean P.2 mmHg MV V2 VTI: 51.5 cm Electronically signed by: Jing Pond on Reading Physician:05/14/2020 01:32 PM
== END ==
PROVIDERS: PCP Internal Medicine; Referring Provider Internal Medicine; Visit Provider Internal Medicine
DX: I08.0 Rheumatic disorders of both mitral and aortic valves (principal); I77.89 Other specified disorders of arteries and arterioles; Z95.2 Presence of prosthetic heart valve; Z95.0 Presence of cardiac pacemaker
CPT/HCPCS: 93306

== ENCOUNTER → 2020-07-12 19:23 | Outpatient (ROUT) | payer MEDICARE, SELFPAY ==
[2020-07-12 19:37] LABS: Add Manual Diff / Slide Review NO; Basophils Absolute Auto 100 /uL (0-100); Basophils Percent Auto 1.8 % (0-2); Eosinophils Absolute Auto 200 /uL (0-450); Eosinophils Percent Auto 3.3 % (2-4); Hematocrit 28.2 % (36-46); Hemoglobin 9.5 g/dL (12.0-16.0); Lymphocytes Absolute Auto 1000 /uL (1100-4500); Lymphocytes Percent Auto 16.9 % (25-40); Mean Corpuscular HGB Conc 33.9 % (30-36); Mean Corpuscular Hemoglobin 30.3 PG (26-34); Mean Corpuscular Volume 89.6 fL (80-100); Monocytes Absolute Auto 600 /uL (0-900); Monocytes Percent Auto 10.6 % (3-14); Neutrophils Absolute Auto 3800 /uL (1500-7000); Neutrophils Percent Auto 67.4 % (50-75); Platelet Count 310 X10^3/uL (150-400); Red Blood Cell Count 3.14 X10^6/uL (4.0-5.2); Red Cell Distribution Width 14.4 % (11.6-14.8); White Blood Cell Count 5.7 X10^3/uL (4.5-11.0)
[2020-07-12 19:42] LABS: BUN Creatinine Ratio 25.5 (6-22); Blood Urea Nitrogen 27 mg/dL (7-17); Calcium 9.7 mg/dL (8.4-10.2); Carbon Dioxide 23 mmol/L (22-32); Chloride 100 mmol/L (98-107); Estimated Glomerular Filt Rate 49.4 mL/min (>60); Glucose 107 mg/dL (80-110); HEMOLYSIS < 15 (0-50); Iron 108 ug/dL (37-170); Potassium 4.4 mmol/L (3.4-5.1); Sodium 129 mmol/L (137-145)
[2020-07-12 19:53] LABS: Percent Iron Saturation 32 % (15-50); Total Iron Binding Capacity 341 ug/dL (265-497); Transferrin 261 mg/dL (206-381)
[2020-07-12 20:17] LABS: Ferritin 24 ng/mL (11-264)
== END ==
PROVIDERS: PCP Internal Medicine; Visit Provider Internal Medicine
DX: I10 Essential (primary) hypertension (principal); K92.2 Gastrointestinal hemorrhage, unspecified
CPT/HCPCS: 80048; 82728; 83540; 83550; 85025

== ENCOUNTER → 2020-09-07 18:58 | Outpatient (ROUT) | payer MEDICARE, SELFPAY ==
[2020-09-07 19:20] LABS: Add Manual Diff / Slide Review NO; Basophils Absolute Auto 100 /uL (0-100); Basophils Percent Auto 2.2 % (0-2); Eosinophils Absolute Auto 100 /uL (0-450); Eosinophils Percent Auto 2.7 % (2-4); Hematocrit 28.6 % (36-46); Hemoglobin 9.6 g/dL (12.0-16.0); Lymphocytes Absolute Auto 800 /uL (1100-4500); Lymphocytes Percent Auto 16.4 % (25-40); Mean Corpuscular HGB Conc 33.7 % (30-36); Mean Corpuscular Hemoglobin 30.8 PG (26-34); Mean Corpuscular Volume 91.4 fL (80-100); Monocytes Absolute Auto 400 /uL (0-900); Monocytes Percent Auto 7.3 % (3-14); Neutrophils Absolute Auto 3600 /uL (1500-7000); Neutrophils Percent Auto 71.4 % (50-75); Platelet Count 288 X10^3/uL (150-400); Red Blood Cell Count 3.13 X10^6/uL (4.0-5.2); Red Cell Distribution Width 13.7 % (11.6-14.8)
[2020-09-07 19:28] LABS: HEMOLYSIS < 15 (0-50); Iron 86 ug/dL (37-170)
[2020-09-07 19:39] LABS: Percent Iron Saturation 25 % (15-50); Total Iron Binding Capacity 339 ug/dL (265-497); Transferrin 255 mg/dL (206-381)
[2020-09-07 20:04] LABS: Ferritin 22 ng/mL (11-264)
== END ==
PROVIDERS: PCP Internal Medicine; Visit Provider Internal Medicine
DX: D50.9 Iron deficiency anemia, unspecified (principal)
CPT/HCPCS: 82728; 83540; 83550; 85025

== ENCOUNTER 2020-11-25 09:18 | Emergency (ER) | payer MEDICARE, SELFPAY ==
[2020-11-25] VITALS (18 sets, daily range): BP systolic 95–140; BP diastolic 42–80; PULSE 72–88; RESP 16–98; TEMP 36.2–36.8; O2SAT 91–95; BMI 26.3
--- NOTE | 2020-11-25 09:27 | DI.RAD.S_ITS ---
PROCEDURE: XR CHEST 1V INDICATIONS: weakness TECHNIQUE: One view of the chest was acquired. COMPARISON: [facility], , CHEST 1 VIEW, 05/10/2017, 13:52. FINDINGS: Surgical changes and devices: A cardiac pacemaker is seen with pulse generator in the left chest. A prosthetic aortic valve is also noted. Lungs and pleura: Lungs are clear. No pleural effusions or pneumothorax. Mediastinum: Mediastinal contours appear normal. Heart size is normal. Mitral annular calcifications are noted. Bones and chest wall: No suspicious bony lesions. Overlying soft tissues appear unremarkable. Narrowing of the left acromiohumeral interval is compatible with underlying full-thickness rotator cuff tendon tearing. Degenerative changes are seen in the included spine. IMPRESSION: No acute cardiopulmonary abnormality. Dictated by: Nic Oneill M.D. on 11/25/2020 at 8:41 Approved by: Nic Oneill M.D. on 11/25/2020 at 8:44
[2020-11-25 09:34] LABS: Add Manual Diff / Slide Review NO; Basophils Absolute Auto 100 /uL (0-100); Basophils Percent Auto 0.8 % (0-2); Eosinophils Absolute Auto 0 /uL (0-450); Eosinophils Percent Auto 0.3 % (2-4); Lymphocytes Absolute Auto 600 /uL (1100-4500); Lymphocytes Percent Auto 5.6 % (25-40); Mean Corpuscular HGB Conc 32.6 % (30-36); Mean Corpuscular Hemoglobin 27.3 PG (26-34); Mean Corpuscular Volume 83.9 fL (80-100); Monocytes Absolute Auto 1200 /uL (0-900); Monocytes Percent Auto 11.7 % (3-14); Neutrophils Absolute Auto 8400 /uL (1500-7000); Neutrophils Percent Auto 81.6 % (50-75); Platelet Count 465 X10^3/uL (150-400); Red Blood Cell Count 2.46 X10^6/uL (4.0-5.2); Red Cell Distribution Width 14.4 % (11.6-14.8); White Blood Cell Count 10.2 X10^3/uL (4.5-11.0)
[2020-11-25 09:36] LABS: Hemoglobin 6.7 g/dL (12.0-16.0)
[2020-11-25 09:37] LABS: Hematocrit 20.6 % (36-46)
[2020-11-25 09:43] LABS: Alanine Aminotransferase 13 IU/L (<35); Albumin Globulin Ratio 1.1 (1.0-2.8); Alkaline Phosphatase 89 U/L (38-126); Aspartate Aminotransferase 21 IU/L (14-36); BUN Creatinine Ratio 19.5 (6-22); Bilirubin Total 0.4 mg/dL (0.2-1.3); Blood Urea Nitrogen 24 mg/dL (7-17); Calcium 9.7 mg/dL (8.4-10.2); Carbon Dioxide 19 mmol/L (22-32); Chloride 101 mmol/L (98-107); Estimated Glomerular Filt Rate 41.6 mL/min (>60); Globulin 3.5 g/dL (1.7-4.1); Glucose 154 mg/dL (80-110); HEMOLYSIS < 15 (0-50); Magnesium 2.3 mg/dL (1.6-2.3); Potassium 4.8 mmol/L (3.4-5.1); Sodium 129 mmol/L (137-145); Total Protein 7.5 g/dL (6.3-8.2)
--- NOTE | 2020-11-25 09:45 | ED.WEAKNESS ---
HPI - Weakness General Chief complaint: Weakness Stated complaint: Weakness, near syncope Time Seen by Provider: 11/25/20 09:26 Source: patient and EMS Mode of arrival: EMS History of Present Illness HPI Narrative: 85-year-old woman with a history of pacemaker, TAVR 5 years ago and recurrent episodes of anemia with negative workup today and recently stopped aspirin presents with dramatic weakness when she woke up this morning. She states that she was feeling well last night. She notes that she has been taking iron but stopped last week. She has had dark stools and she has presumed it was secondary to the iron. She has not had any vomiting. She complains of no pain, dyspnea, palpitations or chest pain, abdominal pain. She was orthostatic when medics picked her up a at her home in [facility]. She does live alone. She states that she has not had fevers, chills or cough recently. Related Data Home Medications Medication Instructions Recorded Confirmed pravastatin 40 mg PO HS #0 03/31/16 11/25/20 lisinopril 10 mg PO QAM #0 08/15/17 11/25/20 ferrous sulfate [Iron (ferrous 325 mg PO TID 11/25/20 11/25/20 sulfate)] pantoprazole 40 mg PO BID 11/25/20 11/25/20 Allergies Allergy/AdvReac Type Severity Reaction Status Date / Time ezetimibe [EZETIMIBE] Allergy Unknown Verified 11/25/20 09:29 simvastatin [SIMVASTATIN] AdvReac Intermediate MYALGIAS Verified 11/25/20 09:29 Review of Systems Review of Systems Narrative: Remainder of review of systems including constitutional, ENT, cardiovascular, respiratory, GI, , musculoskeletal, skin, neurologic and psychiatric systems reviewed and are unremarkable except as noted in HPI. Patient History Medical History GI bleed Hyperlipidemia Hypertension Surgical History S/P TAVR (transcatheter aortic valve replacement) Social History Smoking Status: Former smoker Smoking Status: Former smoker alcohol intake frequency: holidays/special occasions only Substance Use Type: does not use Exam Narrative Exam Narrative: General: Healthy appearing, in no acute distress. Able to give a complete and coherent history. Well-nourished well-developed HEENT: Moist mucous membranes, normal sclera with reactive pupils, Neck: No JVD, supple Respiratory: Lungs are clear to auscultation, no wheezing no rales no rhonchi. Full and symmetrical air movement Cardiac: Regular rate and rhythm, soft 2/6 systolic ejection murmur without bruit Abdomen: Soft, nontender, good bowel tones, no flank pain Skin: Pale, Warm and dry, no rashes Neurologic: Grossly neurologically intact with no obvious asymmetries or abnormalities Extremities: No trauma, well perfused Psych: Cooperative, appropriate insight and affect Rectal exam: Black constipated stool, immediately guaiac-positive Initial Vital Signs Initial Vital Signs: Vital Signs Temperature 97.1 F L 11/25/20 09:20 Pulse Rate 82 11/25/20 09:20 Respiratory Rate 16 11/25/20 09:20 Blood Pressure 116/45 L 11/25/20 09:20 Pulse Oximetry 93 11/25/20 09:20 Course Orders Ordered: ED Orders 11/25/20 09:05 Complete Blood Count AUTO DIFF Stat Comprehensive Metabolic Panel Stat Magnesium Stat NT-proBNP (BNP-Adult 18+) Stat Troponin I Stat 11/25/20 09:27 XR chest 1V Stat Urinalysis and Microscopic Stat EKG-12 Lead Stat 11/25/20 09:58 Blood Culture Stat Lactate (Lactic Acid) Stat Packed Cells Stat Type and Screen Stat 11/25/20 10:25 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) Stat Sodium Chloride (Normal Saline 0.9%) 1,000 mls @ 150 mls/hr IV CONT FADUMO Last Infusion: 11/25/20 12:19 Dose: 0 mls/hr Documented by: Admin: 11/25/20 10:46 Dose: 150 mls/hr Documented by: MINISTERIO Vital Signs Vital signs: Vital Signs - 8 hr 11/25/20 09:20 11/25/20 10:00 11/25/20 10:07 Temperature 97.1 F L Pulse Rate 82 78 76 Respiratory Rate 16 98 H 23 Blood Pressure 116/45 L 95/42 L Pulse Oximetry 93 93 93 11/25/20 10:15 11/25/20 10:30 11/25/20 10:45 Temperature Pulse Rate 72 81 74 Respiratory Rate 22 18 20 Blood Pressure 98/45 L 133/54 L 123/56 L Pulse Oximetry 93 95 91 11/25/20 11:00 11/25/20 11:15 11/25/20 11:30 Temperature Pulse Rate 73 73 73 Respiratory Rate 20 18 20 Blood Pressure 117/53 L 125/54 L 117/52 L Pulse Oximetry 92 93 92 11/25/20 11:45 11/25/20 11:46 11/25/20 12:00 Temperature Pulse Rate 73 84 Respiratory Rate 20 35 H Blood Pressure 112/49 L Pulse Oximetry 93 93 93 11/25/20 12:01 11/25/20 12:10 11/25/20 12:15 Temperature 98.2 F Pulse Rate 82 75 78 Respiratory Rate 36 H 16 29 H Blood Pressure 140/58 L 140/80 Pulse Oximetry 94 94 11/25/20 12:16 11/25/20 12:27 11/25/20 12:30 Temperature 98.1 F Pulse Rate 78 88 77 Respiratory Rate 20 20 22 Blood Pressure 126/59 L 119/51 L 119/51 L Pulse Oximetry 93 95 MDM - Weakness Medical Records Attestation: I reviewed the patient's medical records. Lab Data Attestation: I reviewed the patient's lab results. Result diagrams: 11/25/20 09:05 11/25/20 09:05 Labs: Lab Results 11/25/20 11/25/20 11/25/20 Range/Units 09:05 09:05 09:58 WBC 10.2 (4.5-11.0) X10^3/uL RBC 2.46 L (4.0-5.2) X10^6/uL Hgb 6.7 L* (12.0-16.0) g/dL Hct 20.6 L* (36-46) % MCV 83.9 (80-100) fL MCH 27.3 (26-34) PG MCHC 32.6 (30-36) % RDW 14.4 (11.6-14.8) % Plt Count 465 H (150-400) X10^3/uL Neut % (Auto) 81.6 H (50-75) % Lymph % (Auto) 5.6 L (25-40) % Hutchinson % (Auto) 11.7 (3-14) % Eos % (Auto) 0.3 L (2-4) % Baso % (Auto) 0.8 (0-2) % Neut # (Auto) 8400 H (1217-8229) /uL Lymph # (Auto) 600 L (6872-2390) /uL Hutchinson # (Auto) 1200 H (0-900) /uL Eos # (Auto) 0 (0-450) /uL Baso # (Auto) 100 (0-100) /uL Sodium 129 L (137-145) mmol/L Potassium 4.8 (3.4-5.1) mmol/L Chloride 101 (98-107) mmol/L Carbon Dioxide 19 L (22-32) mmol/L BUN 24 H (7-17) mg/dL Creatinine 1.23 H (0.52-1.04) mg/dL Estimated GFR 41.6 L (>60) mL/min BUN/Creatinine Ratio 19.5 (6-22) Glucose 154 H (80-110) mg/dL Lactate 1.1 (0.7-2.1) mmol/L Calcium 9.7 (8.4-10.2) mg/dL Magnesium 2.3 (1.6-2.3) mg/dL Total Bilirubin 0.4 (0.2-1.3) mg/dL AST 21 (14-36) IU/L ALT 13 (<35) IU/L Alkaline Phosphatase 89 (38-126) U/L Troponin I 0.015 (0.01-0.034) ng/mL NT-Pro-B Natriuret Pep 1570 H (<450) pg/mL Total Protein 7.5 (6.3-8.2) g/dL Albumin 4.0 (3.5-5.0) g/dL Globulin 3.5 (1.7-4.1) g/dL Albumin/Globulin Ratio 1.1 (1.0-2.8) SARS-CoV-2 (PCR) (Negative) Blood Type Antibody Screen Antibody Identification Crossmatch 11/25/20 11/25/20 Range/Units 09:58 10:25 WBC (4.5-11.0) X10^3/uL RBC (4.0-5.2) X10^6/uL Hgb (12.0-16.0) g/dL Hct (36-46) % MCV (80-100) fL MCH (26-34) PG MCHC (30-36) % RDW (11.6-14.8) % Plt Count (150-400) X10^3/uL Neut % (Auto) (50-75) % Lymph % (Auto) (25-40) % Hutchinson % (Auto) (3-14) % Eos % (Auto) (2-4) % Baso % (Auto) (0-2) % Neut # (Auto) (5450-6930) /uL Lymph # (Auto) (9379-5271) /uL Hutchinson # (Auto) (0-900) /uL Eos # (Auto) (0-450) /uL Baso # (Auto) (0-100) /uL Sodium (137-145) mmol/L Potassium (3.4-5.1) mmol/L Chloride (98-107) mmol/L Carbon Dioxide (22-32) mmol/L BUN (7-17) mg/dL Creatinine (0.52-1.04) mg/dL Estimated GFR (>60) mL/min BUN/Creatinine Ratio (6-22) Glucose (80-110) mg/dL Lactate (0.7-2.1) mmol/L Calcium (8.4-10.2) mg/dL Magnesium (1.6-2.3) mg/dL Total Bilirubin (0.2-1.3) mg/dL AST (14-36) IU/L ALT (<35) IU/L Alkaline Phosphatase (38-126) U/L Troponin I (0.01-0.034) ng/mL NT-Pro-B Natriuret Pep (<450) pg/mL Total Protein (6.3-8.2) g/dL Albumin (3.5-5.0) g/dL Globulin (1.7-4.1) g/dL Albumin/Globulin Ratio (1.0-2.8) SARS-CoV-2 (PCR) Negative (Negative) Blood Type AB Positive Antibody Screen Positive Antibody Identification Anti-M Crossmatch See Detail MDM Narrative Medical decision making narrative: 85-year-old woman with a history of AVM GI bleeding with prior transfusions. She presents with weakness this morning she is guaiac-positive and has not H&H of 6.7 and 20.6. I have asked for records from Dr. Love office to see what extent of workup has been done and what still needs to be done. 2 units of packed red cells have been ordered. She is otherwise stable having no dyspnea or chest pain. 1100 Record review indicates that she has had enteroscopy with AVM ablation in 2016 twice in 2017, 2018 2019 all at [facility]. She has had stable blood counts in the low 30s. In March she was seen again at [facility] as [place] enteroscopy apparently did not lead to an ablation and she was told that her issues were due to aspirin and iron both of which she has since discontinued. She has been on pantoprazole and sucralfate. 1140 Care is reviewed with [facility] hospitalist Dr. Lissett Nicole. She accepts admission. Will talk with Gastroenterology to let them know of pending admission. Patient is aware of pending transfer continue to be stable [address] Parekh GI. Aware of pending admit. Discharge Plan Departure Patient Disposition: [facility] Clinical Impression: GI bleed Qualifiers: GI bleed type/associated pathology: unspecified gastrointestinal hemorrhage type Qualified Code(s): K92.2 - Gastrointestinal hemorrhage, unspecified Prescriptions: No Action pravastatin 40 MG tablet 40 mg PO HS Qty: 0 RF: 0 lisinopril 10 MG tablet 10 mg PO QAM Qty: 0 RF: 0 pantoprazole 40 mg Tablet,Delayed Release (Dr/Ec) 40 mg PO BID RF: 0 ferrous sulfate [Iron (ferrous sulfate)] 325 mg (65 mg iron) Tablet 325 mg PO TID RF: 0 Referrals: Jonny Love MD [Primary Care Provider] -
[2020-11-25 09:55] LABS: NT-proBNP (BNP-Adult 18+) 1570 pg/mL (<450); Troponin I 0.015 ng/mL (0.01-0.034)
[2020-11-25 10:14] LABS: Lactate (Lactic Acid) 1.1 mmol/L (0.7-2.1)
[2020-11-25] MEDS: SODIUM CHLORIDE 0.9% 1,000 ML 150 ML IV (10:46)
[2020-11-25 11:59] LABS: COVID19 - ADMIT (NP swab/PCR) Negative (Negative)
--- NOTE | 2020-11-25 12:46 | PC.NURSE ---
1st unit of blood completed @ 1246 for purposes of IH documentation. 75 cc infused. Will continue w/ NWA documentation.
== END 2020-11-25 12:47 | disposition short-term general hospital (02) ==
PROVIDERS: Emergency Provider Emergency Medicine; PCP Internal Medicine
DX: K92.2 Gastrointestinal hemorrhage, unspecified (principal); Z20.822 Contact with and (suspected) exposure to COVID-19; D64.9 Anemia, unspecified
CPT/HCPCS: 36415; 36430; 71045; 80053; 83605; 83735; 83880; 84484; 85025; 86850; 86870; 86900; 86901; 87040; 87635; 93005; 93010; 96360; 96361; 99285; P9016

== ENCOUNTER → 2020-12-03 18:33 | Outpatient (ROUT) | payer MEDICARE, SELFPAY ==
[2020-12-03 18:52] LABS: Add Manual Diff / Slide Review NO; Basophils Absolute Auto 0 /uL (0-100); Basophils Percent Auto 0.8 % (0-2); Eosinophils Absolute Auto 100 /uL (0-450); Eosinophils Percent Auto 2.2 % (2-4); Hematocrit 26.9 % (36-46); Lymphocytes Absolute Auto 700 /uL (1100-4500); Lymphocytes Percent Auto 11.9 % (25-40); Mean Corpuscular HGB Conc 33.3 % (30-36); Monocytes Absolute Auto 600 /uL (0-900); Monocytes Percent Auto 10.6 % (3-14); Neutrophils Absolute Auto 4300 /uL (1500-7000); Neutrophils Percent Auto 74.5 % (50-75); Platelet Count 399 X10^3/uL (150-400); Red Blood Cell Count 3.09 X10^6/uL (4.0-5.2); Red Cell Distribution Width 15.5 % (11.6-14.8); White Blood Cell Count 5.8 X10^3/uL (4.5-11.0)
[2020-12-03 19:14] LABS: BUN Creatinine Ratio 19.2 (6-22); Blood Urea Nitrogen 15 mg/dL (7-17); Calcium 9.2 mg/dL (8.4-10.2); Carbon Dioxide 23 mmol/L (22-32); Chloride 104 mmol/L (98-107); Estimated Glomerular Filt Rate > 60.0 mL/min (>60); Glucose 99 mg/dL (80-110); Sodium 134 mmol/L (137-145)
[2020-12-03 19:30] LABS: HEMOLYSIS 65 (0-50)
[2020-12-03 19:48] LABS: Ferritin 616 ng/mL (11-264)
[2020-12-05 13:07] LABS: Iron 53 ug/dL (37-170)
[2020-12-05 13:09] LABS: HEMOLYSIS 58 (0-50)
[2020-12-05 13:25] LABS: Percent Iron Saturation 22 % (15-50); Total Iron Binding Capacity 243 ug/dL (265-497); Transferrin 189 mg/dL (206-381)
== END ==
PROVIDERS: PCP Internal Medicine; Visit Provider Internal Medicine
DX: D50.9 Iron deficiency anemia, unspecified (principal); K92.2 Gastrointestinal hemorrhage, unspecified
CPT/HCPCS: 80048; 82728; 83540; 83550; 85025

== ENCOUNTER → 2020-12-13 19:16 | Outpatient (ROUT) | payer MEDICARE, SELFPAY ==
[2020-12-13 19:27] LABS: Add Manual Diff / Slide Review NO; Basophils Absolute Auto 100 /uL (0-100); Basophils Percent Auto 1.2 % (0-2); Eosinophils Absolute Auto 100 /uL (0-450); Eosinophils Percent Auto 0.9 % (2-4); Hematocrit 27.3 % (36-46); Hemoglobin 8.7 g/dL (12.0-16.0); Lymphocytes Absolute Auto 800 /uL (1100-4500); Lymphocytes Percent Auto 8.9 % (25-40); Mean Corpuscular Hemoglobin 28.2 PG (26-34); Mean Corpuscular Volume 88.2 fL (80-100); Monocytes Absolute Auto 700 /uL (0-900); Monocytes Percent Auto 7.7 % (3-14); Neutrophils Absolute Auto 7100 /uL (1500-7000); Neutrophils Percent Auto 81.3 % (50-75); Platelet Count 482 X10^3/uL (150-400); Red Blood Cell Count 3.09 X10^6/uL (4.0-5.2); Red Cell Distribution Width 16.6 % (11.6-14.8); White Blood Cell Count 8.7 X10^3/uL (4.5-11.0)
[2020-12-13 20:03] LABS: Ferritin 288 ng/mL (11-264)
== END ==
PROVIDERS: PCP Internal Medicine; Visit Provider Internal Medicine
DX: D50.9 Iron deficiency anemia, unspecified (principal); Z09 Encounter for follow-up examination after completed treatment for conditions other than malignant neoplasm
CPT/HCPCS: 82728; 85025

== ENCOUNTER 2020-12-15 11:29 | Emergency (ER) | payer MEDICARE, SELFPAY ==
[2020-12-15 11:38] VITALS: BP 147/61; PULSE 74; RESP 18; TEMP 36.7; O2SAT 100; BMI 25.0
--- NOTE | 2020-12-15 15:31 | ED_ITS ---
HPI - Skin/Abscess/Foreign Bdy General Chief complaint: Skin/Abscess/Foreign Body Stated complaint: Boil on abdomen x3 days Time Seen by Provider: 12/15/20 15:31 Source: patient Mode of arrival: Wheelchair Limitations: no limitations History of Present Illness HPI narrative: This is an 85-year-old female with complaint of a boil on her abdomen x3 days. Patient states that she had an abscess on her abdomen in the same place years ago. Patient states this showed about 3 days ago. It started as a small lesion and then grew in size. It is soft. She attempted to make a follow-up visit with her primary care but could not until next week. Patient states tender. It has not actively draining. She denies fevers, chills, no nausea or vomiting, no intra-abdominal pain. No issues with bowel movements or urination. Patient states she takes medication for hypertension, dyslipidemia in her stomach. She has had a TAVR. She denies any allergies to medications. Her primary care is Dr. Love. Related Data Home Medications Medication Instructions Recorded Confirmed pravastatin 40 mg PO HS #0 03/31/11/25/20 lisinopril 10 mg PO QAM #0 08/15/11/25/20 ferrous sulfate [Iron (ferrous 325 mg PO TID 11/25/20 11/25/20 sulfate)] pantoprazole 40 mg PO BID 11/25/20 11/25/20 Previous Rx's Medication Instructions Recorded clindamycin HCl 300 mg PO Q6H #28 cap 12/15/20 Allergies Allergy/AdvReac Type Severity Reaction Status Date / Time ezetimibe [EZETIMIBE] Allergy Unknown Verified 11/25/20 09:29 simvastatin [SIMVASTATIN] AdvReac Intermediate MYALGIAS Verified 11/25/20 09:29 Review of Systems Review of Systems ROS Unobtainable: All systems reviewed & are unremarkable except as noted in HPI and below Patient History Medical History GI bleed Hyperlipidemia Hypertension Surgical History S/P TAVR (transcatheter aortic valve replacement) Social History Smoking Status: Former smoker Smoking Status: Former smoker alcohol intake frequency: holidays/special occasions only Substance Use Type: does not use Exam Narrative Exam Narrative: GENERAL: Alert and oriented x three, well-nourished elderly female in mild distress. HEENT: Head normocephalic, atraumatic, EOMI, pupils reactive, face symmetric, moist mucous membranes NECK: Supple, full range of motion CARDIOVASCULAR: Regular rate and rhythm without murmurs, rubs or gallops. RESPIRATORY: Breath sounds equal bilaterally, no wheezes rales or rhonchi. ABDOMEN: Soft, nontender except for a 3 cm area of fluctuance on the anterior abdominal wall. There is a area that is just starting to drain. There is about 1 cm of erythema surrounding the area of fluctuance. Normoactive bowel sounds all 4 quadrants. No guarding or rebound, rigidity, no mass : No CVA tenderness EXTREMITIES: Normal range of motion, no clubbing or edema. Neurovascularly intact NEUROLOGICAL: Cranial nerves II through XII grossly intact. Moving all ext remities SKIN: Warm, dry, no petechiae, no rashes or lesions. Initial Vital Signs Initial Vital Signs: Vital Signs Temperature 98.1 F 12/15/20 11:38 Pulse Rate 74 12/15/20 11:38 Respiratory Rate 18 12/15/20 11:38 Blood Pressure 147/61 H 12/15/20 11:38 Pulse Oximetry 100 12/15/20 11:38 Procedures Abscess I/D I&D #1: Site: abdomen Local Anesthetic: lidocaine 1% Amount of anesthesia used (mL): 3 Technique: needle aspiration and incised with #11 blade Amount of fluid expressed (mL): 8 Irrigation: Yes Packing used?: iodoform Course Orders Ordered: ED Orders 12/15/20 16:00 Wound Culture and Gram Stain Stat Discontinued Medications Lidocaine/Sodium Bicarbonate (Lido 1%/Sod Bicarb 8.4% (10ml) 10 Ml Syringe) 10 ml INJ NOW ONE Stop: 12/15/20 15:38 Last Admin: 12/15/20 15:41 Dose: 10 ml Documented by: SACHA Vital Signs Vital signs: Vital Signs - 8 hr 12/15/20 11:38 12/15/20 16:29 Temperature 98.1 F Pulse Rate 74 Respiratory Rate 18 20 Blood Pressure 147/61 H 142/104 H Pulse Oximetry 100 MDM - Skin/Abscess/Foreign Bdy [facility] Narrative Medical decision making narrative: This is an 85-year-old female who comes emergency department with complaint of boil in her abdomen. Patient does appear to have an abscess with incision and drainage with purulence fluid. Patient tolerated procedure well. A small iodoform wick was placed. Patient was started oral antibiotics secondary to age and with some small surrounding cellulitis. Discharge Plan Departure Patient Disposition: Home Clinical Impression: Abdominal wall abscess Instructions: DI for Skin Abscess Activity Restrictions/Additional Instructions: Follow-up in the next week for recheck. Take antibiotics until completely gone. Your prescription was sent to [facility] in [place] You may take your home medications as prescribed. You may take Tylenol and/or ibuprofen as needed for pain. Wound Care: Keep wound(s) clean and dry. Wash daily with soap and water only. Do not use over the counter products (alcohol or peroxide)on the wounds unless instructed by a physician. If wound condition worsens (increased/expanding redness, developing fluid blisters, or worsening pain), either contact your doctor for an urgent re- assessment , or return to the Emergency Department. Return to the Emergency Department for any new or worsening symptoms. Return if fever greater than 100.4 Fahrenheit, increased swelling, no abdominal, nausea, vomiting, black or bloody stools, increasing pain or worsening symptoms such as increased discharge or spreading redness. Use warm compresses 3 times daily for 20 minutes to the affected area. If there is packing in place do not pull it out, if it falls out do not try to replace it. Prescriptions: New clindamycin HCl 300 mg capsule 300 mg PO Q6H Qty: 28 RF: 0 No Action pravastatin 40 MG tablet 40 mg PO HS Qty: 0 RF: 0 lisinopril 10 MG tablet 10 mg PO QAM Qty: 0 RF: 0 pantoprazole 40 mg Tablet,Delayed Release (Dr/Ec) 40 mg PO BID RF: 0 ferrous sulfate [Iron (ferrous sulfate)] 325 mg (65 mg iron) Tablet 325 mg PO TID RF: 0 Referrals: Jonny Love MD [Primary Care Provider] -
[2020-12-15] MEDS: LIDO 1%/SOD BICARB 8.4% (10ML) 10 ML SYRINGE INJ (15:41)
[2020-12-15 16:29] VITALS: BP 142/104; RESP 20
== END 2020-12-15 16:29 | disposition home or self-care (01) ==
PROVIDERS: Emergency Provider Emergency Medicine; PCP Internal Medicine
DX: L02.211 Cutaneous abscess of abdominal wall (principal)
CPT/HCPCS: 10060; 87070; 87075; 87077; 87147; 87186; 87205; 99283; 99284

== ENCOUNTER → 2020-12-27 19:03 | Outpatient (ROUT) | payer MEDICARE, SELFPAY ==
[2020-12-27 19:41] LABS: Add Manual Diff / Slide Review NO; Basophils Absolute Auto 100 /uL (0-100); Basophils Percent Auto 1.3 % (0-2); Eosinophils Absolute Auto 100 /uL (0-450); Eosinophils Percent Auto 1.6 % (2-4); Hematocrit 25.7 % (36-46); Hemoglobin 8.4 g/dL (12.0-16.0); Lymphocytes Absolute Auto 700 /uL (1100-4500); Mean Corpuscular HGB Conc 32.6 % (30-36); Mean Corpuscular Hemoglobin 28.7 PG (26-34); Mean Corpuscular Volume 87.8 fL (80-100); Monocytes Absolute Auto 400 /uL (0-900); Monocytes Percent Auto 6.3 % (3-14); Neutrophils Absolute Auto 5200 /uL (1500-7000); Neutrophils Percent Auto 79.8 % (50-75); Platelet Count 334 X10^3/uL (150-400); Red Blood Cell Count 2.93 X10^6/uL (4.0-5.2); Red Cell Distribution Width 17.9 % (11.6-14.8); White Blood Cell Count 6.5 X10^3/uL (4.5-11.0)
[2020-12-27 20:23] LABS: Ferritin 180 ng/mL (11-264)
== END ==
PROVIDERS: PCP Internal Medicine; Visit Provider Internal Medicine
DX: Z09 Encounter for follow-up examination after completed treatment for conditions other than malignant neoplasm (principal)
CPT/HCPCS: 82728; 85025

== ENCOUNTER → 2021-01-10 19:56 | Outpatient (ROUT) | payer MEDICARE, SELFPAY ==
[2021-01-10 21:00] LABS: Add Manual Diff / Slide Review NO; Basophils Absolute Auto 0 /uL (0-100); Basophils Percent Auto 0.9 % (0-2); Eosinophils Absolute Auto 100 /uL (0-450); Eosinophils Percent Auto 2.2 % (2-4); Hematocrit 23.8 % (36-46); Hemoglobin 7.9 g/dL (12.0-16.0); Lymphocytes Absolute Auto 600 /uL (1100-4500); Lymphocytes Percent Auto 11.6 % (25-40); Mean Corpuscular HGB Conc 33.4 % (30-36); Mean Corpuscular Hemoglobin 30.2 PG (26-34); Mean Corpuscular Volume 90.4 fL (80-100); Monocytes Absolute Auto 400 /uL (0-900); Monocytes Percent Auto 6.8 % (3-14); Neutrophils Absolute Auto 4200 /uL (1500-7000); Neutrophils Percent Auto 78.5 % (50-75); Platelet Count 325 X10^3/uL (150-400); Red Blood Cell Count 2.63 X10^6/uL (4.0-5.2); Red Cell Distribution Width 19.3 % (11.6-14.8); White Blood Cell Count 5.4 X10^3/uL (4.5-11.0)
[2021-01-10 21:37] LABS: Ferritin 94 ng/mL (11-264)
== END ==
PROVIDERS: PCP Internal Medicine; Visit Provider Internal Medicine
DX: Z09 Encounter for follow-up examination after completed treatment for conditions other than malignant neoplasm (principal); D50.9 Iron deficiency anemia, unspecified
CPT/HCPCS: 82728; 85025

== ENCOUNTER → 2021-01-24 18:55 | Outpatient (ROUT) | payer MEDICARE, SELFPAY ==
[2021-01-24 19:29] LABS: Add Manual Diff / Slide Review NO; Basophils Absolute Auto 100 /uL (0-100); Basophils Percent Auto 1.2 % (0-2); Eosinophils Absolute Auto 100 /uL (0-450); Eosinophils Percent Auto 1.6 % (2-4); Hematocrit 30.7 % (36-46); Hemoglobin 10.3 g/dL (12.0-16.0); Lymphocytes Absolute Auto 700 /uL (1100-4500); Lymphocytes Percent Auto 12.1 % (25-40); Mean Corpuscular HGB Conc 33.4 % (30-36); Mean Corpuscular Hemoglobin 30.5 PG (26-34); Mean Corpuscular Volume 91.2 fL (80-100); Monocytes Absolute Auto 500 /uL (0-900); Monocytes Percent Auto 7.6 % (3-14); Neutrophils Absolute Auto 4800 /uL (1500-7000); Neutrophils Percent Auto 77.5 % (50-75); Platelet Count 267 X10^3/uL (150-400); Red Blood Cell Count 3.37 X10^6/uL (4.0-5.2); Red Cell Distribution Width 16.1 % (11.6-14.8); White Blood Cell Count 6.2 X10^3/uL (4.5-11.0)
== END ==
PROVIDERS: PCP Internal Medicine; Visit Provider Internal Medicine
DX: K92.2 Gastrointestinal hemorrhage, unspecified (principal)
CPT/HCPCS: 85025

== ENCOUNTER → 2021-02-07 19:25 | Outpatient (ROUT) | payer MEDICARE, SELFPAY ==
[2021-02-07 20:06] LABS: Add Manual Diff / Slide Review NO; Basophils Absolute Auto 100 /uL (0-100); Eosinophils Absolute Auto 100 /uL (0-450); Eosinophils Percent Auto 2.2 % (2-4); Hematocrit 28.5 % (36-46); Hemoglobin 9.5 g/dL (12.0-16.0); Lymphocytes Absolute Auto 800 /uL (1100-4500); Lymphocytes Percent Auto 12.9 % (25-40); Mean Corpuscular HGB Conc 33.5 % (30-36); Mean Corpuscular Hemoglobin 30.8 PG (26-34); Mean Corpuscular Volume 92.1 fL (80-100); Monocytes Absolute Auto 600 /uL (0-900); Monocytes Percent Auto 9.6 % (3-14); Neutrophils Absolute Auto 4400 /uL (1500-7000); Neutrophils Percent Auto 74.3 % (50-75); Platelet Count 304 X10^3/uL (150-400); Red Cell Distribution Width 15.4 % (11.6-14.8); White Blood Cell Count 5.9 X10^3/uL (4.5-11.0)
== END ==
PROVIDERS: PCP Internal Medicine; Visit Provider Internal Medicine
DX: K92.2 Gastrointestinal hemorrhage, unspecified (principal)
CPT/HCPCS: 85025

== ENCOUNTER 2021-03-21 10:06 | Emergency (ER) | payer MEDICARE, SELFPAY ==
[2021-03-21 10:26] VITALS: BP 158/59; PULSE 95; RESP 18; TEMP 36.6; O2SAT 100; BMI 23.9
--- NOTE | 2021-03-21 11:32 | DI.RAD.S_ITS ---
PROCEDURE: XR KNEE RT 3V INDICATIONS: right knee pain and swelling, no injury or trauma TECHNIQUE: 3 views of the knee were acquired. COMPARISON: None. FINDINGS: Bones: No acute fractures or dislocations. No suspicious bony lesions. There is mild narrowing of the medial femorotibial compartment joint space. Moderate narrowing of the anterior compartment joint space is seen medially. Small distal quadriceps enthesophyte. Soft tissues: Moderate joint effusion. A small calcification adjacent to the medial femoral epicondyle is most likely the sequela of a prior medial collateral ligament injury. Atherosclerotic vascular calcifications are present. IMPRESSION: 1. No acute osseous abnormality. Moderate joint effusion. If the symptoms persist, consider cross sectional imaging such as MRI or CT for further assessment. 2. 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 Dictated by: Nic Oneill M.D. on 03/21/2021 at 11:28 Approved by: Nic Oneill M.D. on 03/21/2021 at 11:30
--- NOTE | 2021-03-21 13:12 | ED.EXTPRO ---
HPI - Extremity Problem General Chief complaint: Extremity Problem,Nontraumatic Stated complaint: right knee pain Time Seen by Provider: 03/21/21 13:05 Source: patient Mode of arrival: Family Vehicle Limitations: no limitations History of Present Illness HPI Narrative: Patient is an 85-year-old female who presents with right knee pain that started yesterday. She was sitting watching TV she walked down to the mailbox and back and then noticed that she had swelling. She has no redness no fever. Related Data Home Medications Medication Instructions Recorded Confirmed pravastatin 40 mg tablet 40 mg PO HS #0 03/31/16 11/25/20 lisinopril 10 mg tablet 10 mg PO QAM #0 08/15/17 11/25/20 ferrous sulfate 325 mg (65 mg 325 mg PO TID 11/25/20 11/25/20 iron) tablet (Iron (ferrous sulfate)) pantoprazole 40 mg tablet,delayed 40 mg PO BID 11/25/20 11/25/20 release Previous Rx's Medication Instructions Recorded clindamycin HCl 300 mg capsule 300 mg PO Q6H #28 cap 12/15/20 Allergies Allergy/AdvReac Type Severity Reaction Status Date / Time ezetimibe [EZETIMIBE] Allergy Unknown Verified 03/21/21 10:29 simvastatin [SIMVASTATIN] AdvReac Intermediate MYALGIAS Verified 03/21/21 10:29 Review of Systems Review of Systems Narrative: GENERAL: Denies chills,fever HEENT: Denies throat pain RESPIRATORY: Denies dyspnea, cough, wheezing CARDIOVASCULAR: Denies chest pain, palpitations GASTROINTESTINAL: Denies nausea, vomiting MUSCULOSKELETAL: See HPI SKIN: No rash, no laceration, no pruritus NEUROLOGIC: Denies weakness, dizziness, headache, numbness 8 point review of systems is negative except for those stated above and HPI Patient History Medical History GI bleed Hyperlipidemia Hypertension Surgical History S/P TAVR (transcatheter aortic valve replacement) Social History Smoking Status: Former smoker Smoking Status: Former smoker alcohol intake frequency: holidays/special occasions only Substance Use Type: does not use Exam Initial Vital Signs Initial Vital Signs: Vital Signs Temperature 97.8 F 03/21/21 10:26 Pulse Rate 95 H 03/21/21 10:26 Respiratory Rate 18 03/21/21 10:26 Blood Pressure 158/59 H 03/21/21 10:26 Pulse Oximetry 100 03/21/21 10:26 GENERAL: Alert 85-year-old female appears well CARDIOVASCULAR: peripheral pulses in tact, cap refill <2 sec RESPIRATORY: No respiratory distress, speaks in full sentences without difficulty EXTREMITIES: Normal range of motion, no clubbing or edema. Neurovascularly intact Right knee minimal swelling no erythema knee is stable able flex extend completely. NEUROLOGICAL: Cranial nerves II through XII grossly intact. Normal gait and speech. SKIN: Warm, dry, no petechiae, no rashes or lesions. Course Orders Ordered: ED Orders 03/21/21 11:32 XR knee RT 3V Stat Vital Signs Vital signs: Vital Signs - 8 hr 03/21/21 10:26 Temperature 97.8 F Pulse Rate 95 H Respiratory Rate 18 Blood Pressure 158/59 H Pulse Oximetry 100 [facility] - Extremity (Nontraumatic) Imaging Data Extremity x-ray #1: Radiologist's Impression: PROCEDURE: XR KNEE RT 3V INDICATIONS: right knee pain and swelling, no injury or trauma TECHNIQUE: 3 views of the knee were acquired. COMPARISON: None. FINDINGS: Bones: No acute fractures or dislocations. No suspicious bony lesions. There is mild narrowing of the medial femorotibial compartment joint space. Moderate narrowing of the anterior compartment joint space is seen medially. Small distal quadriceps enthesophyte. Soft tissues: Moderate joint effusion. A small calcification adjacent to the medial femoral epicondyle is most likely the sequela of a prior medial collateral ligament injury. Atherosclerotic vascular calcifications are present. IMPRESSION: 1. No acute osseous abnormality. Moderate joint effusion. If the symptoms persist, consider cross sectional imaging such as MRI or CT for further assessment. 2. 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 Dictated by: Nic Oneill M.D. on 03/21/2021 at 11:28 Approved by: Nic Oneill M.D. on 03/21/2021 at 11:30 [facility] Narrative Medical decision making narrative: Patient does have some mild swelling of her right knee no erythema no fever certainly no concern for septic joint. X-ray is negative. She is ambulatory it. Discharge Plan Departure Patient Disposition: Home Clinical Impression: Effusion of right knee Instructions: DI for Knee Effusion Activity Restrictions/Additional Instructions: *You have been diagnosed with right knee effusion *What to do: Elevate, ice 20-30 minutes at a time may walk as tolerated *Continue to take medications as directed Tylenol 650 mg every 4 6 hours if needed for [id number] pain *Follow up with your primary care provider in 2-3 days *Return to ER if you should have increasing pain redness swelling dizziness lightheadedness shortness of breath passing out or any new, worsening or concerning symptoms Prescriptions: No Action pravastatin 40 MG tablet 40 mg PO HS Qty: 0 RF: 0 lisinopril 10 MG tablet 10 mg PO QAM Qty: 0 RF: 0 pantoprazole 40 mg Tablet,Delayed Release (Dr/Ec) 40 mg PO BID RF: 0 ferrous sulfate [Iron (ferrous sulfate)] 325 mg (65 mg iron) Tablet 325 mg PO TID RF: 0 clindamycin HCl 300 mg capsule 300 mg PO Q6H Qty: 28 RF: 0 Referrals: Jonny Love MD [Primary Care Provider] -
== END 2021-03-21 13:30 | disposition home or self-care (01) ==
PROVIDERS: Emergency Provider Emergency Medicine; PCP Internal Medicine
DX: M25.461 Effusion, right knee (principal)
CPT/HCPCS: 73562; 99283

== ENCOUNTER → 2021-03-21 13:27 | Outpatient (CLI) | payer MEDICARE, SELFPAY ==
[2021-03-21 13:59] LABS: Add Manual Diff / Slide Review NO; Basophils Absolute Auto 100 /uL (0-100); Basophils Percent Auto 1.1 % (0-2); Eosinophils Absolute Auto 0 /uL (0-450); Eosinophils Percent Auto 0.6 % (2-4); Hematocrit 22.2 % (36-46); Hemoglobin 7.5 g/dL (12.0-16.0); Lymphocytes Absolute Auto 700 /uL (1100-4500); Lymphocytes Percent Auto 11.4 % (25-40); Mean Corpuscular HGB Conc 33.8 % (30-36); Mean Corpuscular Hemoglobin 30.3 PG (26-34); Mean Corpuscular Volume 89.8 fL (80-100); Monocytes Absolute Auto 400 /uL (0-900); Neutrophils Absolute Auto 4800 /uL (1500-7000); Neutrophils Percent Auto 79.9 % (50-75); Platelet Count 378 X10^3/uL (150-400); Red Blood Cell Count 2.48 X10^6/uL (4.0-5.2); Red Cell Distribution Width 13.3 % (11.6-14.8)
[2021-03-21 14:29] LABS: HEMOLYSIS < 15 (0-50); Iron 22 ug/dL (37-170)
[2021-03-21 14:42] LABS: Percent Iron Saturation 8 % (15-50); Total Iron Binding Capacity 269 ug/dL (265-497); Transferrin 193 mg/dL (206-381)
== END ==
PROVIDERS: PCP Internal Medicine; Referring Provider Nurse Practitioner; Visit Provider Nurse Practitioner
DX: D50.0 Iron deficiency anemia secondary to blood loss (chronic) (principal)
CPT/HCPCS: 36415; 83540; 83550; 85025

== ENCOUNTER 2021-03-23 11:58 | Emergency (ER) | payer MEDICARE, SELFPAY ==
[2021-03-23] VITALS (26 sets, daily range): BP systolic 129–158; BP diastolic 56–110; PULSE 63–85; RESP 15–28; TEMP 36–36.6; O2SAT 95–100; BMI 23.9
--- NOTE | 2021-03-23 12:24 | DI.RAD.S_ITS ---
PROCEDURE: XR CHEST 1V INDICATIONS: chest pain TECHNIQUE: One view of the chest was acquired. COMPARISON: [facility], [place], CHEST 1 VIEW, 05/10/2017, 13:52. [facility], [place], XR CHEST 1V, 11/25/2020, 9:35. FINDINGS: Surgical changes and devices: Pacemaker, TAPVR valve Lungs and pleura: Lungs are clear. No pleural effusions or pneumothorax. Mediastinum: Mediastinal contours appear normal. Calcified right paratracheal lymph nodes are consistent with chronic granulomatous disease. Heart size is normal. Bones and chest wall: No suspicious bony lesions. Overlying soft tissues appear unremarkable. IMPRESSION: No evidence acute pulmonary process. Dictated by: Christoph Nicholas M.D. on 03/23/2021 at 13:11 Approved by: Christoph Nicholas M.D. on 03/23/2021 at 13:13
[2021-03-23 12:31] LABS: Add Manual Diff / Slide Review NO; Basophils Absolute Auto 100 /uL (0-100); Basophils Percent Auto 1.1 % (0-2); Eosinophils Absolute Auto 100 /uL (0-450); Eosinophils Percent Auto 1.1 % (2-4); Hematocrit 21.5 % (36-46); Hemoglobin 7.3 g/dL (12.0-16.0); Lymphocytes Absolute Auto 500 /uL (1100-4500); Lymphocytes Percent Auto 8.2 % (25-40); Mean Corpuscular HGB Conc 33.8 % (30-36); Mean Corpuscular Volume 88.9 fL (80-100); Monocytes Absolute Auto 600 /uL (0-900); Monocytes Percent Auto 9.5 % (3-14); Neutrophils Absolute Auto 5000 /uL (1500-7000); Neutrophils Percent Auto 80.1 % (50-75); Platelet Count 397 X10^3/uL (150-400); Red Blood Cell Count 2.42 X10^6/uL (4.0-5.2); Red Cell Distribution Width 13.5 % (11.6-14.8); White Blood Cell Count 6.2 X10^3/uL (4.5-11.0)
[2021-03-23 12:41] LABS: Alanine Aminotransferase 16 IU/L (<35); Albumin 4.1 g/dL (3.5-5.0); Albumin Globulin Ratio 1.2 (1.0-2.8); Alkaline Phosphatase 80 U/L (38-126); Aspartate Aminotransferase 25 IU/L (14-36); BUN Creatinine Ratio 26.9 (6-22); Bilirubin Total 0.4 mg/dL (0.2-1.3); Blood Urea Nitrogen 25 mg/dL (7-17); Calcium 9.6 mg/dL (8.4-10.2); Carbon Dioxide 19 mmol/L (22-32); Chloride 102 mmol/L (98-107); Creatine Kinase 81 U/L (30-135); Estimated Glomerular Filt Rate 57.4 mL/min (>60); Globulin 3.4 g/dL (1.7-4.1); Glucose 93 mg/dL (80-110); HEMOLYSIS < 15 (0-50); Lipase 196 U/L (23-300); Potassium 4.6 mmol/L (3.4-5.1); Sodium 130 mmol/L (137-145); Total Protein 7.5 g/dL (6.3-8.2)
[2021-03-23 12:53] LABS: Troponin I < 0.012 ng/mL (0.01-0.034)
--- NOTE | 2021-03-23 13:51 | ED_ITS ---
HPI - Weakness General Chief complaint: Weakness Stated complaint: generalized weakness Time Seen by Provider: 03/23/21 13:02 Source: patient and EMS Mode of arrival: EMS History of Present Illness HPI Narrative: Patient is an 85-year-old female with history of GI bleed, anemia, TAVR who presents with generalized weakness. She said this morning it just seems to be progressively getting worse. She is followed closely with GI she has a history of AVMs she is taking iron. She has weekly scheduled CBCs. His last 1 was 03/21/2021 with a hemoglobin of 7.5 hematocrit 22.2. She says today she just feels generally weak. She is not really short of breath dizzy or lightheaded. She constantly has black stool but has not noted any increased. She previously received his blood transfusion by her primary care provider in January when hemoglobin was 7.9. She is scheduled for a capsule study next month. She denies any chest pain fever or chills. Related Data Home Medications Medication Instructions Recorded Confirmed pravastatin 40 mg tablet 40 mg PO HS #0 03/31/16 11/25/20 lisinopril 10 mg tablet 10 mg PO QAM #0 08/15/17 11/25/20 ferrous sulfate 325 mg (65 mg 325 mg PO TID 11/25/20 11/25/20 iron) tablet (Iron (ferrous sulfate)) pantoprazole 40 mg tablet,delayed 40 mg PO BID 11/25/20 11/25/20 release Previous Rx's Medication Instructions Recorded clindamycin HCl 300 mg capsule 300 mg PO Q6H #28 cap 12/15/20 Allergies Allergy/AdvReac Type Severity Reaction Status Date / Time ezetimibe [EZETIMIBE] Allergy Unknown Verified 03/21/21 10:29 simvastatin [SIMVASTATIN] AdvReac Intermediate MYALGIAS Verified 03/21/21 10:29 Review of Systems Review of Systems Narrative: GENERAL generalized weakness HEENT: Denies sinus pain, ear pain, sore throat, difficulty swallowing, neck pain RESPIRATORY: Denies dyspnea, cough, wheezing, hemoptysis, sputum. CARDIOVASCULAR: Denies chest pain, palpitations, orthopnea, edema GASTROINTESTINAL: See HPI : Denies dysuria, frequency, incontinence, hematuria, urinary retention, flank pain. MUSCULOSKELETAL: Denies weakness, joint pain, or bony pain SKIN: No rash, no erythema, no pruritus NEUROLOGIC: Denies weakness, dizziness, headache, numbness, change in speech, confusion PSYCHIATRIC: No concerning psychosocial issues. 12 point review of systems is negative except for those stated above and HPI Patient History Medical History GI bleed Hyperlipidemia Hypertension Surgical History S/P TAVR (transcatheter aortic valve replacement) Social History Smoking Status: Former smoker Smoking Status: Former smoker alcohol intake frequency: holidays/special occasions only Substance Use Type: does not use Exam Initial Vital Signs Initial Vital Signs: Vital Signs Temperature 97.2 F L 03/23/21 11:58 Pulse Rate 67 03/23/21 11:58 Respiratory Rate 16 03/23/21 11:58 Blood Pressure 158/67 H 03/23/21 11:58 Pulse Oximetry 100 03/23/21 11:58 GENERAL: Alert pleasant 85-year-old male slightly pale HEENT: Head atraumatic,EOMI, pupils reactive, face symmetric, moist mucous membranes CARDIOVASCULAR: Regular rate and rhythm without murmurs, rubs or gallops. RESPIRATORY: Breath sounds equal bilaterally, no wheezes rales or rhonchi. ABDOMEN: Soft, nontender. Normoactive bowel sounds all 4 quadrants. No guarding or rebound. EXTREMITIES: Normal range of motion, no clubbing or edema. Neurovascularly intact Right knee swelling has improved. No erythema NEUROLOGICAL: Alert and oriented x4.Normal gait and speech. Cranial nerves II through XII grossly intact. SKIN: Warm, dry, no laceration, no petechiae, no rashes or lesions. Course Orders Ordered: ED Orders 03/23/21 12:20 Complete Blood Count AUTO DIFF Stat Comprehensive Metabolic Panel Stat Lipase Stat Packed Cells Stat Troponin & CK Cardiac Panel Stat Type and Screen Stat 03/23/21 12:24 XR chest 1V Stat Vital Signs Vital signs: Vital Signs - 8 hr 03/23/21 11:58 03/23/21 12:35 03/23/21 12:44 Temperature 97.2 F L Pulse Rate 67 68 85 Respiratory Rate 16 24 22 Blood Pressure 158/67 H 151/62 H Pulse Oximetry 100 99 99 03/23/21 13:00 07/21/21 13:01 03/23/21 13:30 Temperature Pulse Rate 67 67 69 Respiratory Rate 24 25 H 23 Blood Pressure 134/59 L 129/70 Pulse Oximetry 100 99 99 03/23/21 14:00 03/23/21 14:01 03/23/21 14:30 Temperature Pulse Rate 67 67 68 Respiratory Rate 20 22 17 Blood Pressure 137/60 158/63 H Pulse Oximetry 100 100 100 03/23/21 15:00 03/23/21 15:30 03/23/21 16:00 Temperature Pulse Rate 77 64 67 Respiratory Rate 28 H 20 27 H Blood Pressure 146/63 H Pulse Oximetry 95 100 100 03/23/21 16:02 03/23/21 16:06 03/23/21 16:16 Temperature 96.9 F L Pulse Rate 64 64 64 Respiratory Rate 18 22 15 Blood Pressure 146/110 H 146/110 H 150/58 H Pulse Oximetry 100 99 03/23/21 16:21 03/23/21 16:30 03/23/21 16:31 Temperature 96.8 F L Pulse Rate 64 65 63 Respiratory Rate 19 17 16 Blood Pressure 150/58 H 134/56 L Pulse Oximetry 98 100 03/23/21 16:46 03/23/21 17:00 03/23/21 17:15 Temperature Pulse Rate 67 67 64 Respiratory Rate 19 19 19 Blood Pressure 135/64 141/58 H 140/60 Pulse Oximetry 99 96 100 03/23/21 17:30 03/23/21 17:45 03/23/21 17:59 Temperature 97.8 F Pulse Rate 64 65 77 Respiratory Rate 17 20 19 Blood Pressure 139/62 146/67 H 146/67 H Pulse Oximetry 100 100 MDM - Weakness Lab Data Result diagrams: 03/23/21 12:20 03/23/21 12:20 Labs: Lab Results 03/23/21 03/23/21 03/23/21 Range/Units 12:20 12:20 12:20 WBC 6.2 (4.5-11.0) X10^3/uL RBC 2.42 L (4.0-5.2) X10^6/uL Hgb 7.3 L (12.0-16.0) g/dL Hct 21.5 L (36-46) % MCV 88.9 (80-100) fL MCH 30.0 (26-34) PG MCHC 33.8 (30-36) % RDW 13.5 (11.6-14.8) % Plt Count 397 (150-400) X10^3/uL Neut % (Auto) 80.1 H (50-75) % Lymph % (Auto) 8.2 L (25-40) % [place] % (Auto) 9.5 (3-14) % Eos % (Auto) 1.1 L (2-4) % Baso % (Auto) 1.1 (0-2) % Neut # (Auto) 5000 (2125-3834) /uL Lymph # (Auto) 500 L (7198-6773) /uL [place] # (Auto) 600 (0-900) /uL Eos # (Auto) 100 (0-450) /uL Baso # (Auto) 100 (0-100) /uL Sodium 130 L (137-145) mmol/L Potassium 4.6 (3.4-5.1) mmol/L Chloride 102 (98-107) mmol/L Carbon Dioxide 19 L (22-32) mmol/L BUN 25 H (7-17) mg/dL Creatinine 0.93 (0.52-1.04) mg/dL Estimated GFR 57.4 L (>60) mL/min BUN/Creatinine Ratio 26.9 H (6-22) Glucose 93 (80-110) mg/dL Calcium 9.6 (8.4-10.2) mg/dL Total Bilirubin 0.4 (0.2-1.3) mg/dL AST 25 (14-36) IU/L ALT 16 (<35) IU/L Alkaline Phosphatase 80 (38-126) U/L Total Creatine Kinase 81 (30-135) U/L CK-MB (CK-2) TNP CK-MB (CK-2) Rel Index TNP Troponin I < 0.012 (0.01-0.034) ng/mL Total Protein 7.5 (6.3-8.2) g/dL Albumin 4.1 (3.5-5.0) g/dL Globulin 3.4 (1.7-4.1) g/dL Albumin/Globulin Ratio 1.2 (1.0-2.8) Lipase 196 (23-300) U/L Blood Type AB Positive Antibody Screen Positive Antibody Identification Anti-M Crossmatch See Detail Urine Dip Bedside Urine Glucose Negative Bedside Urine Bilirubin - Negative Bedside Urine Ketone - Negative Urine Specific [place] 1.015 Bedside Urine Occult Blood +/- Bedside Urine pH 6.0 Bedside Urine Protein - Negative Bedside Urine Urobilinogen - Negative Bedside Urine Nitrite - Negative Bedside Urine Leukocytes - Negative Esterase Imaging Data Chest x-ray: Radiologist Impression: PROCEDURE: XR CHEST 1V INDICATIONS: chest pain TECHNIQUE: One view of the chest was acquired. COMPARISON: [facility], , CHEST 1 VIEW, 05/10/2017, 13:52. [facility], CR, XR CHEST 1V, 11/25/2020, 9:35. FINDINGS: Surgical changes and devices: Pacemaker, TAPVR valve Lungs and pleura: Lungs are clear. No pleural effusions or pneumothorax. Mediastinum: Mediastinal contours appear normal. Calcified right paratracheal lymph nodes are consistent with chronic granulomatous disease. Heart size is normal. Bones and chest wall: No suspicious bony lesions. Overlying soft tissues appear unremarkable. IMPRESSION: No evidence acute pulmonary process. Dictated by: Christoph Nicholas M.D. on 03/23/2021 at 13:11 ECG Data Interpretation: Paced rhythm rate 69 KS interval 186 QRS 178 QTC 522 similar to previous EKG MDM Narrative Medical decision making narrative: Patient has very minimal decrease and 3 days 7.5/20 2.2-7.3/21.5 with out significant worsening of his black stool. She feels generally weak I think reasonable to transfuse blood at this time. She is followed closely with GI. She is feeling better after her 1 unit of blood. She has an appointment with her primary care provider in 2 days who plans on reordering blood work anyway. Her right knee continues to be painful with ambulation but she has been getting around at home okay. I discussed with patient when to return to the ED. It seems as though she has good follow-up she is a reliable patient and can return as needed. Discharge Plan Departure Patient Disposition: Home Clinical Impression: Anemia Qualifiers: Anemia type: unspecified type Qualified Code(s): D64.9 - Anemia, unspecified Instructions: Anemia Activity Restrictions/Additional Instructions: *You have been diagnosed with anemia *What to do: I hope you feel better after her 1 unit of blood. Please continue to follow-up with his GI to get to the bottom of your blood loss *Continue to take medications as directed *Follow up with your primary care provider in 2-3 days *Return to ER if you should have increasing weakness dizziness lightheadedness bright red blood in stool or worsening dark stool, increasing abdominal pain or any new, worsening or concerning symptoms Prescriptions: No Action pravastatin 40 MG tablet 40 mg PO HS Qty: 0 RF: 0 lisinopril 10 MG tablet 10 mg PO QAM Qty: 0 RF: 0 pantoprazole 40 mg Tablet,Delayed Release (Dr/Ec) 40 mg PO BID RF: 0 ferrous sulfate [Iron (ferrous sulfate)] 325 mg (65 mg iron) Tablet 325 mg PO TID RF: 0 clindamycin HCl 300 mg capsule 300 mg PO Q6H Qty: 28 RF: 0 Referrals: Jonny Love MD [Primary Care Provider] -
== END 2021-03-23 18:37 | disposition home or self-care (01) ==
PROVIDERS: Emergency Provider Emergency Medicine; PCP Internal Medicine
DX: D64.9 Anemia, unspecified (principal); R07.9 Chest pain, unspecified
CPT/HCPCS: 36415; 36430; 71045; 80053; 81003; 82550; 83690; 84484; 85025; 86850; 86870; 86900; 86901; 93005; 93010; 99284; P9016

== ENCOUNTER 2021-03-27 08:03 | Emergency (ER) | payer MEDICARE, SELFPAY ==
--- NOTE | 2021-03-27 08:09 | ED_ITS ---
HPI - Extremity Injury (Lower) General Chief Complaint: Extremity Injury, Lower Stated Complaint: Rt knee swelling Time Seen by Provider: 03/27/21 08:08 History of Present Illness HPI Narrative: Patient is an 85-year-old female who has history ofTAVR, GI bleeding, anemia, and right knee pain. This is her 3rd visit to the ER this week and I have seen her every time. Today she is complaining of worsening right knee pain. She states that 1 week ago she was sitting in her recliner she walked down to the mailbox by the time she got back to her house to sit down she had knee pain. She does not remember falling injuring twisting or hurting it. It has had increased swelling. She initially had an x-ray which was negative and showed some moderate effusion. She has had difficulty ambulating throughout the week. She was seen a 2nd time for generalized weakness and found to be anem ic. She received 1 unit of blood in the emergency department and discharged home. She followed up with her primary care provider 2 days ago he did not recheck her blood. He told her to ice it and stay off of at over the weekend. She did this yesterday she said actually got better but this morning she woke up and was having increased pain. There is some mild effusion noted. She is not having any more dizziness lightheadedness or generalized weakness. She is scheduled to have a capsule study at the end of April. Ongoing GI issues. Follow closely with GI. Related Data Home Medications Medication Instructions Recorded Confirmed pravastatin 40 mg tablet 40 mg PO HS #0 03/31/16 11/25/20 lisinopril 10 mg tablet 10 mg PO QAM #0 08/15/17 11/25/20 ferrous sulfate 325 mg (65 mg 325 mg PO TID 11/25/20 11/25/20 iron) tablet (Iron (ferrous sulfate)) pantoprazole 40 mg tablet,delayed 40 mg PO BID 11/25/20 11/25/20 release Previous Rx's Medication Instructions Recorded clindamycin HCl 300 mg capsule 300 mg PO Q6H #28 cap 12/15/20 Allergies Allergy/AdvReac Type Severity Reaction Status Date / Time ezetimibe [EZETIMIBE] Allergy Unknown Verified 03/21/21 10:29 simvastatin [SIMVASTATIN] AdvReac Intermediate MYALGIAS Verified 03/21/21 10:29 Review of Systems Review of Systems Narrative: GENERAL: Denies chills, fatigue, malaise, fever, sweats, travel HEENT: Denies sinus pain, ear pain, sore throat, difficulty swallowing, neck pain RESPIRATORY: Denies dyspnea, cough, wheezing, hemoptysis, sputum. CARDIOVASCULAR: Denies chest pain, palpitations, orthopnea, edema GASTROINTESTINAL: See HPI : Denies dysuria, frequency, incontinence, hematuria, urinary retention, flank pain. MUSCULOSKELETAL: See HPI SKIN: No rash, no erythema, no pruritus NEUROLOGIC: Denies weakness, dizziness, headache, numbness, change in speech, confusion PSYCHIATRIC: No concerning psychosocial issues. 12 point review of systems is negative except for those stated above and HPI Patient History Medical History GI bleed Hyperlipidemia Hypertension Surgical History S/P TAVR (transcatheter aortic valve replacement) Social History Smoking Status: Former smoker Smoking Status: Former smoker alcohol intake frequency: holidays/special occasions only Substance Use Type: does not use Exam Initial Vital Signs Initial Vital Signs: Vital Signs Temperature 97.0 F L 03/27/21 08:12 Pulse Rate 73 03/27/21 08:12 Respiratory Rate 18 03/27/21 08:12 Blood Pressure 170/70 H 03/27/21 08:12 Pulse Oximetry 97 03/27/21 08:12 GENERAL: Well-appearing, well-nourished and in no acute distress. HEENT: Head atraumatic,EOMI, pupils reactive, face symmetric, moist mucous membranes CARDIOVASCULAR: Regular rate and rhythm without murmurs, rubs or gallops. RESPIRATORY: Breath sounds equal bilaterally, no wheezes rales or rhonchi. ABDOMEN: Soft, nontender. Normoactive bowel sounds all 4 quadrants. No guarding or rebound. EXTREMITIES: Normal range of motion, no clubbing or edema. Neurovascularly intact Right lower extremity mild knee effusion knee is otherwise stable no erythema nontender to touch able to flex distal pedal pulse intact NEUROLOGICAL: Alert and oriented x4.Normal gait and speech. SKIN: Warm, dry, no laceration, no petechiae, no rashes or lesions. Course Orders Ordered: ED Orders 03/27/21 08:16 CT LE RT wo con Stat 03/27/21 08:24 Complete Blood Count AUTO DIFF Stat Discontinued Medications Acetaminophen (Acetaminophen 325 Mg Tablet) 975 mg PO NOW ONE Stop: 03/27/21 08:10 Last Admin: 03/27/21 08:16 Dose: 975 mg Documented by: JAS Vital Signs Vital signs: Vital Signs - 8 hr 03/27/21 08:12 03/27/21 08:54 03/27/21 09:50 Temperature 97.0 F L Pulse Rate 73 75 60 Respiratory Rate 18 17 Blood Pressure 170/70 H 170/60 H 131/72 Pulse Oximetry 97 99 99 MDM - Extremity Injury (Lower) Lab Data Result diagrams: 03/27/21 08:24 Labs: Lab Results 03/27/21 Range/Units 08:24 WBC 5.1 (4.5-11.0) X10^3/uL RBC 2.74 L (4.0-5.2) X10^6/uL Hgb 8.1 L (12.0-16.0) g/dL Hct 24.3 L (36-46) % MCV 88.7 (80-100) fL MCH 29.4 (26-34) PG MCHC 33.1 (30-36) % RDW 14.0 (11.6-14.8) % Plt Count 400 (150-400) X10^3/uL Neut % (Auto) 76.3 H (50-75) % Lymph % (Auto) 10.7 L (25-40) % [place] % (Auto) 9.7 (3-14) % Eos % (Auto) 2.0 (2-4) % Baso % (Auto) 1.3 (0-2) % Neut # (Auto) 3900 (8893-4161) /uL Lymph # (Auto) 500 L (9945-7330) /uL [place] # (Auto) 500 (0-900) /uL Eos # (Auto) 100 (0-450) /uL Baso # (Auto) 100 (0-100) /uL MDM Narrative Medical decision making narrative: The patient's blood work is improved from previous. She received 1 unit of blood a couple days ago hemoglobin is 8.1 today. She overall is feeling better in that regard. She has mild knee effusion she is afebrile without erythema at this time, she also has no leukocytosis. At this time the do not think that she has a septic joint. She is given a knee immobilizer and walker along with Tylenol for pain. She is ambulatory without difficulty with a walker. CT does not show any gross bony deformity but does confirm again there is an effusion. At this time she is not requiring an emergent MRI. I continue to recommend supportive care and follow position instructions such as elevate and ice. Seem to help her yesterday. She is certainly ambulatory with a knee immobilizer and walker. It she needs to take pain medication such as Tylenol regularly as well. I have explained it to her. Discharge Plan Departure Patient Disposition: Home Clinical Impression: Effusion of knee joint right Instructions: DI for Knee Effusion Activity Restrictions/Additional Instructions: *You have been diagnosed with right knee effusion *What to do: You continue to have fluid on her knee. This can take a number of weeks to resolve. Please use knee brace while active during the day. He may remove it at night to sleep and to shower. I also strongly recommend that you use a walker while getting around. Elevate as often as possible. Ice, you may ice through the knee brace 30 minutes at a time. Your blood work today shows improvement and your anemia. Please continue to have this followed by her primary care provider and GI specialist *Continue to take medications as directed Tylenol 1000 mg every 6 hours if needed for pain-you were given a dose in the emergency department at 8am, next dose is at 2:00 p.m. *Follow up with your primary care provider in 2-3 days *Return to ER if you should have increasing pain, inability to walk, fever,, redness, increased weakness or any new, worsening or concerning symptoms Prescriptions: No Action pravastatin 40 MG tablet 40 mg PO HS Qty: 0 RF: 0 lisinopril 10 MG tablet 10 mg PO QAM Qty: 0 RF: 0 pantoprazole 40 mg Tablet,Delayed Release (Dr/Ec) 40 mg PO BID RF: 0 ferrous sulfate [Iron (ferrous sulfate)] 325 mg (65 mg iron) Tablet 325 mg PO TID RF: 0 clindamycin HCl 300 mg capsule 300 mg PO Q6H Qty: 28 RF: 0 Referrals: Jonny Love MD [Primary Care Provider] -
[2021-03-27 08:12] VITALS: BP 170/70; PULSE 73; RESP 18; TEMP 36.1; O2SAT 97; BMI 23.9
[2021-03-27] MEDS: ACETAMINOPHEN 325 MG TABLET 975 MG PO (08:16)
--- NOTE | 2021-03-27 08:16 | DI.CT.S_ITS ---
PROCEDURE: CT LE RT WO CON INDICATIONS: persistent pain no trauma TECHNIQUE: Noncontrast 1-1.5 mm axial sections acquired from the mid-patella to the proximal tibia, with coronal and sagittal reformats. COMPARISON: [facility], CR, XR KNEE RT 3V, 03/21/2021, 11:38. FINDINGS: Image quality: Excellent. Bones: Negative for fracture. No suspicious lytic or blastic lesions are seen. Degenerative changes are seen, mild to moderate femorotibial joint space narrowing. Minimal osteophyte formation can be seen. Soft tissues: There is again seen a moderate pleural effusion. Relatively prominent atherosclerotic calcifications can be seen throughout. Focal calcification can be seen involving the medial aspect of the medial femoral condyle. IMPRESSION: Moderate joint effusion. No acute bony abnormality can be seen. Age-appropriate bony degenerative changes are seen. Carrington-Stieda disease. Dictated by: Keanu Higgins M.D. on 03/27/2021 at 8:24 Approved by: Keanu Higgins M.D. on 03/27/2021 at 8:26
--- NOTE | 2021-03-27 08:18 | PC.NURSE ---
swelling is notable compared to the left knee.
[2021-03-27 08:32] LABS: Add Manual Diff / Slide Review NO; Basophils Absolute Auto 100 /uL (0-100); Basophils Percent Auto 1.3 % (0-2); Eosinophils Absolute Auto 100 /uL (0-450); Hematocrit 24.3 % (36-46); Hemoglobin 8.1 g/dL (12.0-16.0); Lymphocytes Absolute Auto 500 /uL (1100-4500); Lymphocytes Percent Auto 10.7 % (25-40); Mean Corpuscular HGB Conc 33.1 % (30-36); Mean Corpuscular Hemoglobin 29.4 PG (26-34); Mean Corpuscular Volume 88.7 fL (80-100); Monocytes Absolute Auto 500 /uL (0-900); Monocytes Percent Auto 9.7 % (3-14); Neutrophils Absolute Auto 3900 /uL (1500-7000); Neutrophils Percent Auto 76.3 % (50-75); Platelet Count 400 X10^3/uL (150-400); Red Blood Cell Count 2.74 X10^6/uL (4.0-5.2); White Blood Cell Count 5.1 X10^3/uL (4.5-11.0)
[2021-03-27 08:54] VITALS: BP 170/60; PULSE 75; O2SAT 99
[2021-03-27 09:50] VITALS: BP 131/72; PULSE 60; RESP 17; O2SAT 99
--- NOTE | 2021-03-27 09:51 | PC.NURSE ---
pt ambulatory with steady gate, standby assist only, used walker and ambulated with right knee brace in place.
[2021-03-27 11:05] VITALS: BP 165/64; PULSE 60; RESP 18; TEMP 36.6; O2SAT 99
== END 2021-03-27 11:05 | disposition home or self-care (01) ==
PROVIDERS: Emergency Provider Emergency Medicine; PCP Internal Medicine
DX: M25.461 Effusion, right knee (principal); R53.1 Weakness; R79.89 Other specified abnormal findings of blood chemistry
CPT/HCPCS: 36415; 73700; 85025; 99284

== ENCOUNTER → 2021-04-25 10:50 | Outpatient (CLI) | payer MEDICARE, SELFPAY ==
[2021-04-25 12:13] LABS: Add Manual Diff / Slide Review NO; Basophils Absolute Auto 0 /uL (0-100); Eosinophils Absolute Auto 0 /uL (0-450); Eosinophils Percent Auto 1.2 % (2-4); Lymphocytes Absolute Auto 400 /uL (1100-4500); Lymphocytes Percent Auto 10.7 % (25-40); Mean Corpuscular HGB Conc 31.2 % (30-36); Mean Corpuscular Hemoglobin 27.5 PG (26-34); Mean Corpuscular Volume 88.2 fL (80-100); Monocytes Absolute Auto 400 /uL (0-900); Monocytes Percent Auto 10.2 % (3-14); Neutrophils Absolute Auto 2900 /uL (1500-7000); Neutrophils Percent Auto 76.9 % (50-75); Platelet Count 358 X10^3/uL (150-400); Red Blood Cell Count 2.12 X10^6/uL (4.0-5.2); White Blood Cell Count 3.8 X10^3/uL (4.5-11.0)
[2021-04-25 13:18] LABS: Hematocrit 18.7 % (36-46); Hemoglobin 5.8 g/dL (12.0-16.0)
[2021-04-25 13:20] LABS: HEMOLYSIS < 15 (0-50); Iron 13 ug/dL (37-170)
[2021-04-25 13:31] LABS: Percent Iron Saturation 4 % (15-50); Total Iron Binding Capacity 316 ug/dL (265-497); Transferrin 255 mg/dL (206-381)
[2021-04-25 13:47] LABS: Ferritin 24 ng/mL (11-264)
== END ==
PROVIDERS: PCP Internal Medicine; Referring Provider Internal Medicine; Visit Provider Internal Medicine
DX: D50.9 Iron deficiency anemia, unspecified (principal)
CPT/HCPCS: 82728; 83540; 83550; 85025

== ENCOUNTER → 2021-05-31 11:47 | Outpatient (CLI) | payer MEDICARE, SELFPAY ==
[2021-05-31 13:03] LABS: Add Manual Diff / Slide Review NO; Basophils Absolute Auto 0 /uL (0-100); Basophils Percent Auto 0.8 % (0-2); Eosinophils Absolute Auto 100 /uL (0-450); Eosinophils Percent Auto 1.9 % (2-4); Hematocrit 25.5 % (36-46); Hemoglobin 8.2 g/dL (12.0-16.0); Lymphocytes Absolute Auto 700 /uL (1100-4500); Lymphocytes Percent Auto 11.6 % (25-40); Mean Corpuscular HGB Conc 32.1 % (30-36); Mean Corpuscular Hemoglobin 28.6 PG (26-34); Mean Corpuscular Volume 88.9 fL (80-100); Monocytes Absolute Auto 500 /uL (0-900); Monocytes Percent Auto 8.6 % (3-14); Neutrophils Absolute Auto 4400 /uL (1500-7000); Neutrophils Percent Auto 77.1 % (50-75); Platelet Count 328 X10^3/uL (150-400); Red Blood Cell Count 2.87 X10^6/uL (4.0-5.2); Red Cell Distribution Width 17.3 % (11.6-14.8); White Blood Cell Count 5.7 X10^3/uL (4.5-11.0)
[2021-05-31 13:25] LABS: HEMOLYSIS < 15 (0-50); Iron 51 ug/dL (37-170)
[2021-05-31 13:36] LABS: Percent Iron Saturation 19 % (15-50); Total Iron Binding Capacity 262 ug/dL (265-497); Transferrin 216 mg/dL (206-381)
== END ==
PROVIDERS: PCP Internal Medicine; Referring Provider Internal Medicine Gastroenterology; Visit Provider Internal Medicine Gastroenterology
DX: D50.0 Iron deficiency anemia secondary to blood loss (chronic) (principal)
CPT/HCPCS: 36415; 83540; 83550; 85025

== ENCOUNTER 2021-08-01 10:41 | Emergency (ER) | payer MEDICARE, SELFPAY ==
[2021-08-01] VITALS (16 sets, daily range): BP systolic 139–171; BP diastolic 63–103; PULSE 64–81; RESP 20–24; TEMP 36.2; O2SAT 95–100
[2021-08-01 11:55] LABS: Add Manual Diff / Slide Review NO; Basophils Absolute Auto 100 /uL (0-100); Basophils Percent Auto 0.8 % (0-2); Eosinophils Absolute Auto 100 /uL (0-450); Eosinophils Percent Auto 0.9 % (2-4); Hematocrit 28.2 % (36-46); Hemoglobin 9.5 g/dL (12.0-16.0); Lymphocytes Absolute Auto 600 /uL (1100-4500); Lymphocytes Percent Auto 7.6 % (25-40); Mean Corpuscular HGB Conc 33.6 % (30-36); Mean Corpuscular Hemoglobin 28.7 PG (26-34); Mean Corpuscular Volume 85.4 fL (80-100); Monocytes Absolute Auto 800 /uL (0-900); Neutrophils Absolute Auto 5900 /uL (1500-7000); Neutrophils Percent Auto 79.7 % (50-75); Platelet Count 327 X10^3/uL (150-400); Red Cell Distribution Width 14.6 % (11.6-14.8); White Blood Cell Count 7.4 X10^3/uL (4.5-11.0)
[2021-08-01 12:05] LABS: Alanine Aminotransferase 18 IU/L (<35); Albumin 4.2 g/dL (3.5-5.0); Albumin Globulin Ratio 1.3 (1.0-2.8); Alkaline Phosphatase 82 U/L (38-126); Aspartate Aminotransferase 23 IU/L (14-36); Bilirubin Total 0.4 mg/dL (0.2-1.3); Blood Urea Nitrogen 26 mg/dL (7-17); Calcium 9.6 mg/dL (8.4-10.2); Carbon Dioxide 20 mmol/L (22-32); Chloride 101 mmol/L (98-107); Estimated Glomerular Filt Rate 57.3 mL/min (>60); Globulin 3.2 g/dL (1.7-4.1); Glucose 113 mg/dL (80-110); HEMOLYSIS < 15 (0-50); Potassium 4.7 mmol/L (3.4-5.1); Sodium 131 mmol/L (137-145); Total Protein 7.4 g/dL (6.3-8.2)
--- NOTE | 2021-08-01 12:33 | ED.GIBLEED ---
HPI - GI Bleed <Severo Crowell PA-C - Last Filed: 08/01/21 19:18> General Chief complaint: GI Bleed Stated complaint: Weakness Time Seen by Provider: 08/01/21 11:53 Source: patient Mode of arrival: Ambulatory Limitations: no limitations History of Present Illness HPI Narrative: 86-year-old female presenting to the emergency department today for an evaluation of weakness over the last several days. Patient reports an extensive blood transfusion history with 6 transfusions occurring over the last 3 months and most recent transfusion occurring 3 weeks ago. Of note, patient states that she has a known GI bleed that is awaiting surgical intervention at [facility]. Patient states that she does not have a surgery date scheduled at this time. She presents to the emergency department today stating that her weakness feels similar to last time that she needed a transfusion. She denies fever, chills, chest pain, cough, shortness of breath, nausea, vomiting, diarrhea, abdominal pain, hematochezia, hemoptysis, hematemesis, diaphoresis, dizziness, changes in hearing, or changes in vision. No other concerns are voiced at this time. Related Data Home Medications Medication Instructions Recorded Confirmed pravastatin 40 mg tablet 40 mg PO HS #0 03/31/16 11/25/20 lisinopril 10 mg tablet 10 mg PO QAM #0 08/15/17 11/25/20 ferrous sulfate 325 mg (65 mg 325 mg PO TID 11/25/20 11/25/20 iron) tablet (Iron (ferrous sulfate)) pantoprazole 40 mg tablet,delayed 40 mg PO BID 11/25/20 11/25/20 release Previous Rx's Medication Instructions Recorded clindamycin HCl 300 mg capsule 300 mg PO Q6H #28 cap 12/15/20 Allergies Allergy/AdvReac Type Severity Reaction Status Date / Time ezetimibe [EZETIMIBE] Allergy Unknown Verified 08/01/21 11:32 simvastatin [SIMVASTATIN] AdvReac Intermediate MYALGIAS Verified 08/01/21 11:32 Review of Systems <Severo Crowell PA-C - Last Filed: 08/01/21 19:18> Constitutional Constitutional: Denies chills, Denies fatigue, Denies fever(s), Denies frequent falls, Denies lethargy and Reports weakness Eyes Eyes: Denies change in vision, Denies eye discharge, Denies irritation and Denies loss of vision ENT Ears, Nose, Mouth, and Throat: Denies change in voice, Denies dizziness, Denies neck pain, Denies sore throat and Denies throat swelling Cardiovascular Cardiovascular: Denies chest pain, Denies irregular heart rhythm, Denies lightheadedness, Denies palpitations, Denies dyspnea, Denies dyspnea on exertion and Denies orthopnea Respiratory Respiratory: Denies cough, Denies dyspnea, Denies dyspnea on exertion and Denies wheezing Gastrointestinal Gastrointestinal: Denies abdominal pain, Denies change in bowel habits, Denies diarrhea, Denies nausea and Denies vomiting Genitourinary Genitourinary: Denies hematuria, Denies flank pain, Denies urinary incontinence and Denies urinary urgency Musculoskeletal Musculoskeletal: Denies back pain, Denies muscle weakness, Denies neck pain, Denies numbness and Denies tingling Neurologic Neurologic: Denies behavioral changes, Denies confusion, Denies dizziness, Denies frequent falls, Denies loss of vision, Denies numbness, Denies tingling and Reports weakness Psychiatric Psychiatric: Denies behavioral changes and Denies confusion Endocrine Endocrine: Denies fatigue and Denies palpitations Hematologic/Lymphatic Hematologic/Lymphatic: Denies easy bruising Allergic/Immunologic Allergic/Immunologic: Denies urticaria, Denies throat swelling and Denies wheezing Patient History <Severo Crowell PA-C - Last Filed: 08/01/21 19:18> Medical History GI bleed Hyperlipidemia Hypertension Surgical History S/P TAVR (transcatheter aortic valve replacement) Social History Smoking Status: Former smoker Smoking Status: Former smoker alcohol intake frequency: holidays/special occasions only Substance Use Type: does not use Exam <Severo Crowell PA-C - Last Filed: 08/01/21 19:18> Narrative Exam Narrative: GENERAL: 86 year old patient appears stated age. Well-developed patient, in no acute distress. HEAD: Atraumatic. Normocephalic. EYES: Pupils equal round and reactive. Extraocular motions intact. No scleral icterus. No injection or drainage. ENT: Nose without bleeding, purulent drainage. Throat without erythema, tonsillar hypertrophy or exudate. Airway patent. NECK: Trachea midline. Non tender CARDIOVASCULAR: Regular rate and rhythm without gallops, or rubs. Systolic murmur auscultated (this is known to the patient). RESPIRATORY: Clear to auscultation. Breath sounds equal bilaterally. No wheezes, rales, or rhonchi. GASTROINTESTINAL: Abdomen soft, non-tender, nondistended. EXTREMITIES: No edema or joint tenderness. BACK: Nontender without deformity or crepitance. No flank tenderness. NEURO: AOx3. SKIN: No rash or erythema of visible areas. Skin is warm, dry, pink. No excessive sweating appreciated. Initial Vital Signs Initial Vital Signs: Vital Signs Pulse Rate 81 08/01/21 11:13 Respiratory Rate 24 08/01/21 11:13 Pulse Oximetry 100 08/01/21 11:13 Cardio Pulses: radial pulses present bilaterally and other (Regular, non bounding) <Junaid Benitez MD - Last Filed: 08/02/21 08:26> Initial Vital Signs Initial Vital Signs: Vital Signs Pulse Rate 81 08/01/21 11:13 Respiratory Rate 24 08/01/21 11:13 Pulse Oximetry 100 08/01/21 11:13 Course <Severo Crowell PA-C - Last Filed: 08/01/21 19:18> Course Course Narrative: CBC, CMP, type and screen, troponin, EKG ordered. Right hand x-ray, right wrist x-ray, chest x-ray ordered. Orders Ordered: ED Orders 08/01/21 11:20 Complete Blood Count AUTO DIFF Stat Comprehensive Metabolic Panel Stat NT-proBNP (BNP-Adult 18+) Stat Troponin & CK Cardiac Panel Stat Type and Screen Stat 08/01/21 13:48 XR hand LT min 3V Stat XR hand RT min 3V Stat XR wrist RT min 3V Stat 08/01/21 14:40 Chest [XR chest 1V] Stat Reevaluation(s) Reevaluation #1: Checked on patient and still denying dizziness or shortness of breath. She mentioned that approximately 3 weeks ago she experienced an injury to her right hand. Patient does display anatomical snuffbox tenderness. Time: 14:45 Vital Signs Vital signs: Vital Signs - 8 hr 08/01/21 11:30 08/01/21 11:31 08/01/21 11:32 Temperature 97.1 F L Pulse Rate 71 70 79 Respiratory Rate 23 22 20 Blood Pressure 152/72 H 150/103 H Pulse Oximetry 100 100 100 08/01/21 12:00 08/01/21 12:30 08/01/21 12:31 Temperature Pulse Rate 69 68 69 Respiratory Rate 24 24 24 Blood Pressure 158/68 H Pulse Oximetry 100 100 100 08/01/21 13:00 08/01/21 13:17 08/01/21 13:30 Temperature Pulse Rate 68 79 68 Respiratory Rate 24 22 24 Blood Pressure 146/91 H 171/72 H 139/63 Pulse Oximetry 99 95 100 08/01/21 14:00 08/01/21 14:30 08/01/21 15:00 Temperature Pulse Rate 67 69 75 Respiratory Rate 24 22 24 Blood Pressure 145/66 H 141/74 H Pulse Oximetry 100 100 98 08/01/21 15:30 08/01/21 16:00 Temperature Pulse Rate 66 64 Respiratory Rate 24 24 Blood Pressure 141/67 H 158/65 H Pulse Oximetry 100 100 <Junaid Benitez MD - Last Filed: 08/02/21 08:26> Orders Ordered: ED Orders 08/01/21 11:20 Complete Blood Count AUTO DIFF Stat Comprehensive Metabolic Panel Stat NT-proBNP (BNP-Adult 18+) Stat Troponin & CK Cardiac Panel Stat Type and Screen Stat 08/01/21 13:48 XR hand LT min 3V Stat XR hand RT min 3V Stat XR wrist RT min 3V Stat 08/01/21 14:40 Chest [XR chest 1V] Stat Vital Signs Vital signs: Vital Signs - 8 hr 08/01/21 11:30 08/01/21 11:31 08/01/21 11:32 Temperature 97.1 F L Pulse Rate 71 70 79 Respiratory Rate 23 22 20 Blood Pressure 152/72 H 150/103 H Pulse Oximetry 100 100 100 08/01/21 12:00 08/01/21 12:30 08/01/21 12:31 Temperature Pulse Rate 69 68 69 Respiratory Rate 24 24 24 Blood Pressure 158/68 H Pulse Oximetry 100 100 100 08/01/21 13:00 08/01/21 13:17 08/01/21 13:30 Temperature Pulse Rate 68 79 68 Respiratory Rate 24 22 24 Blood Pressure 146/91 H 171/72 H 139/63 Pulse Oximetry 99 95 100 08/01/21 14:00 08/01/21 14:30 08/01/21 15:00 Temperature Pulse Rate 67 69 75 Respiratory Rate 24 22 24 Blood Pressure 145/66 H 141/74 H Pulse Oximetry 100 100 98 08/01/21 15:30 08/01/21 16:00 Temperature Pulse Rate 66 64 Respiratory Rate 24 24 Blood Pressure 141/67 H 158/65 H Pulse Oximetry 100 100 MDM - GI Bleed <Severo Crowell PA-C - Last Filed: 08/01/21 19:18> Lab Data Result diagrams: 08/01/21 11:20 08/01/21 11:20 Labs: Lab Results 08/01/21 08/01/21 08/01/21 Range/Units 11:20 11:20 11:20 WBC 7.4 (4.5-11.0) X10^3/uL RBC 3.30 L (4.0-5.2) X10^6/uL Hgb 9.5 L (12.0-16.0) g/dL Hct 28.2 L (36-46) % MCV 85.4 (80-100) fL MCH 28.7 (26-34) PG MCHC 33.6 (30-36) % RDW 14.6 (11.6-14.8) % Plt Count 327 (150-400) X10^3/uL Neut % (Auto) 79.7 H (50-75) % Lymph % (Auto) 7.6 L (25-40) % [place] % (Auto) 11.0 (3-14) % Eos % (Auto) 0.9 L (2-4) % Baso % (Auto) 0.8 (0-2) % Neut # (Auto) 5900 (3164-0280) /uL Lymph # (Auto) 600 L (1278-6832) /uL [place] # (Auto) 800 (0-900) /uL Eos # (Auto) 100 (0-450) /uL Baso # (Auto) 100 (0-100) /uL Sodium 131 L (137-145) mmol/L Potassium 4.7 (3.4-5.1) mmol/L Chloride 101 (98-107) mmol/L Carbon Dioxide 20 L (22-32) mmol/L BUN 26 H (7-17) mg/dL Creatinine 0.93 (0.52-1.04) mg/dL Estimated GFR 57.3 L (>60) mL/min BUN/Creatinine Ratio 28.0 H (6-22) Glucose 113 H (80-110) mg/dL Calcium 9.6 (8.4-10.2) mg/dL Total Bilirubin 0.4 (0.2-1.3) mg/dL AST 23 (14-36) IU/L ALT 18 (<35) IU/L Alkaline Phosphatase 82 (38-126) U/L Total Creatine Kinase (30-135) U/L CK-MB (CK-2) CK-MB (CK-2) Rel Index Troponin I (0.01-0.034) ng/mL NT-Pro-B Natriuret Pep (<450) pg/mL Total Protein 7.4 (6.3-8.2) g/dL Albumin 4.2 (3.5-5.0) g/dL Globulin 3.2 (1.7-4.1) g/dL Albumin/Globulin Ratio 1.3 (1.0-2.8) Blood Type AB Positive Antibody Screen Positive Antibody Identification Anti-M 08/01/21 08/01/21 Range/Units 11:20 11:20 WBC (4.5-11.0) X10^3/uL RBC (4.0-5.2) X10^6/uL Hgb (12.0-16.0) g/dL Hct (36-46) % MCV (80-100) fL MCH (26-34) PG MCHC (30-36) % RDW (11.6-14.8) % Plt Count (150-400) X10^3/uL Neut % (Auto) (50-75) % Lymph % (Auto) (25-40) % [place] % (Auto) (3-14) % Eos % (Auto) (2-4) % Baso % (Auto) (0-2) % Neut # (Auto) (8971-5341) /uL Lymph # (Auto) (2745-7889) /uL [place] # (Auto) (0-900) /uL Eos # (Auto) (0-450) /uL Baso # (Auto) (0-100) /uL Sodium (137-145) mmol/L Potassium (3.4-5.1) mmol/L Chloride (98-107) mmol/L Carbon Dioxide (22-32) mmol/L BUN (7-17) mg/dL Creatinine (0.52-1.04) mg/dL Estimated GFR (>60) mL/min BUN/Creatinine Ratio (6-22) Glucose (80-110) mg/dL Calcium (8.4-10.2) mg/dL Total Bilirubin (0.2-1.3) mg/dL AST (14-36) IU/L ALT (<35) IU/L Alkaline Phosphatase (38-126) U/L Total Creatine Kinase 42 (30-135) U/L CK-MB (CK-2) TNP CK-MB (CK-2) Rel Index TNP Troponin I < 0.012 (0.01-0.034) ng/mL NT-Pro-B Natriuret Pep 804 H (<450) pg/mL Total Protein (6.3-8.2) g/dL Albumin (3.5-5.0) g/dL Globulin (1.7-4.1) g/dL Albumin/Globulin Ratio (1.0-2.8) Blood Type Antibody Screen Antibody Identification Urine Dip Bedside Urine Glucose Negative Bedside Urine Bilirubin - Negative Bedside Urine Ketone - Negative Urine Specific [place] 1.015 Bedside Urine Occult Blood - Negative Bedside Urine pH 6.0 Bedside Urine Protein - Negative Bedside Urine Urobilinogen - Negative Bedside Urine Nitrite - Negative Bedside Urine Leukocytes - Negative Esterase Imaging Data Extremity x-ray #1: Radiologist's Impression: PROCEDURE:? XR HAND RT MIN 3V ? INDICATIONS:? injury ? TECHNIQUE:? 3 views of the hand(s) acquired.? ? COMPARISON:? None. ? FINDINGS:? ? Bones:? No fractures or dislocations.? Moderate to severe diffuse IP degenerative changes are present.? There is subluxation at the 2nd DIP joint. ? Soft tissues:? No suspicious soft tissue calcifications.? ? ? IMPRESSION:? No visualized acute fracture or dislocation. However, if clinical concern and/or pain persist, short interval imaging followup in 7-10 days is recommended, as occult injury cannot be definitively excluded. ? ? Dictated by: Vicki Tovar M.D. on 08/01/2021 at 14:45 ? ? Approved by: Vicki Tovar M.D. on 08/01/2021 at 14:46 ? Extremity x-ray #2: Radiologist's Impression: PROCEDURE:? XR HAND LT MIN 3V ? INDICATIONS:? injury ? TECHNIQUE:? 3 views of the hand(s) acquired.? ? COMPARISON:? None. ? FINDINGS:? ? Bones:? No fractures or dislocations.? Carpal bones are normally aligned.? No suspicious bony lesions.? [id number] scattered IP degenerative changes are present. ? Soft tissues:? No suspicious soft tissue calcifications.? ? ? IMPRESSION:? No visualized acute fracture or dislocation. However, if clinical concern and/or pain persist, short interval imaging followup in 7-10 days is recommended, as occult injury cannot be definitively excluded. ? ? Dictated by: Vicki Tovar M.D. on 08/01/2021 at 14:43 ? ? Approved by: Vicki Tovar M.D. on 08/01/2021 at 14:45 ? Extremity x-ray #3: Radiologist's Impression: PROCEDURE:? XR WRIST RT MIN 3V ? INDICATIONS: injury ? TECHNIQUE:? 4 views of the wrist were acquired.? ? COMPARISON:? None. ? FINDINGS:? ? Bones/Scaphoid view:? There is ill-defined nondisplaced lucency within the superior pole of the scaphoid bone. ? Soft tissues:? No suspicious soft tissue calcifications.? ? IMPRESSION:? Nondisplaced scaphoid fracture. ? ? Dictated by: Vicki Tovar M.D. on 08/01/2021 at 14:46 ? ? Approved by: Vicki Tovar M.D. on 08/01/2021 at 14:48 ? Chest x-ray: Radiologist's Impression: PROCEDURE:? XR CHEST 1V ? INDICATIONS:? Elevated BNP ? TECHNIQUE:? One view of the chest was acquired.? ? COMPARISON:? [facility], , XR CHEST 1V, 03/23/2021, 12:32. ? FINDINGS:? ? Surgical changes and devices:? Pacemaker. ? Lungs and pleura:? Lungs are clear.? No pleural effusions or pneumothorax.? ? Mediastinum:? Mediastinal contours appear normal.? Heart size is mildly enlarged. ? Bones and chest wall:? No suspicious bony lesions.? Overlying soft tissues appear unremarkable.? ? IMPRESSION:? No acute pulmonary process. ? ? Dictated by: Vicki Tovar M.D. on 08/01/2021 at 15:18 ? ? Approved by: Vicki Tovar M.D. on 08/01/2021 at 15:30 ? MDM Narrative Medical decision making narrative: 86-year-old female presenting to the emergency department today for an evaluation of weakness over the last several days. To consider anemia versus electrolyte derangement versus dehydration versus arrhythmia versus congestive heart failure. Discussed elevated BNP with patient and noted elevated BNP levels back in November. Patient states that she has not experienced shortness of breath, and she states that she has been feeling well otherwise. Additionally chest x-ray obtained today did not show abnormality. Considering elevated BNP levels dating back to November it is likely that patient has an elevated BNP at baseline. Discussed strict return precautions with patient prior to discharge. Patient was placed in thumb spica splint prior to discharge, patient has good sensation and motor function in the right upper extremity following placement of splint. <Junaid Benitez MD - Last Filed: 08/02/21 08:26> Lab Data Labs: Lab Results 08/01/21 08/01/21 08/01/21 Range/Units 11:20 11:20 11:20 WBC 7.4 (4.5-11.0) X10^3/uL RBC 3.30 L (4.0-5.2) X10^6/uL Hgb 9.5 L (12.0-16.0) g/dL Hct 28.2 L (36-46) % MCV 85.4 (80-100) fL MCH 28.7 (26-34) PG MCHC 33.6 (30-36) % RDW 14.6 (11.6-14.8) % Plt Count 327 (150-400) X10^3/uL Neut % (Auto) 79.7 H (50-75) % Lymph % (Auto) 7.6 L (25-40) % [place] % (Auto) 11.0 (3-14) % Eos % (Auto) 0.9 L (2-4) % Baso % (Auto) 0.8 (0-2) % Neut # (Auto) 5900 (6204-2159) /uL Lymph # (Auto) 600 L (6666-0972) /uL [place] # (Auto) 800 (0-900) /uL Eos # (Auto) 100 (0-450) /uL Baso # (Auto) 100 (0-100) /uL Sodium 131 L (137-145) mmol/L Potassium 4.7 (3.4-5.1) mmol/L Chloride 101 (98-107) mmol/L Carbon Dioxide 20 L (22-32) mmol/L BUN 26 H (7-17) mg/dL Creatinine 0.93 (0.52-1.04) mg/dL Estimated GFR 57.3 L (>60) mL/min BUN/Creatinine Ratio 28.0 H (6-22) Glucose 113 H (80-110) mg/dL Calcium 9.6 (8.4-10.2) mg/dL Total Bilirubin 0.4 (0.2-1.3) mg/dL AST 23 (14-36) IU/L ALT 18 (<35) IU/L Alkaline Phosphatase 82 (38-126) U/L Total Creatine Kinase (30-135) U/L CK-MB (CK-2) CK-MB (CK-2) Rel Index Troponin I (0.01-0.034) ng/mL NT-Pro-B Natriuret Pep (<450) pg/mL Total Protein 7.4 (6.3-8.2) g/dL Albumin 4.2 (3.5-5.0) g/dL Globulin 3.2 (1.7-4.1) g/dL Albumin/Globulin Ratio 1.3 (1.0-2.8) Blood Type AB Positive Antibody Screen Positive Antibody Identification Anti-M 08/01/21 08/01/21 Range/Units 11:20 11:20 WBC (4.5-11.0) X10^3/uL RBC (4.0-5.2) X10^6/uL Hgb (12.0-16.0) g/dL Hct (36-46) % MCV (80-100) fL MCH (26-34) PG MCHC (30-36) % RDW (11.6-14.8) % Plt Count (150-400) X10^3/uL Neut % (Auto) (50-75) % Lymph % (Auto) (25-40) % [place] % (Auto) (3-14) % Eos % (Auto) (2-4) % Baso % (Auto) (0-2) % Neut # (Auto) (6607-4789) /uL Lymph # (Auto) (8124-6332) /uL [place] # (Auto) (0-900) /uL Eos # (Auto) (0-450) /uL Baso # (Auto) (0-100) /uL Sodium (137-145) mmol/L Potassium (3.4-5.1) mmol/L Chloride (98-107) mmol/L Carbon Dioxide (22-32) mmol/L BUN (7-17) mg/dL Creatinine (0.52-1.04) mg/dL Estimated GFR (>60) mL/min BUN/Creatinine Ratio (6-22) Glucose (80-110) mg/dL Calcium (8.4-10.2) mg/dL Total Bilirubin (0.2-1.3) mg/dL AST (14-36) IU/L ALT (<35) IU/L Alkaline Phosphatase (38-126) U/L Total Creatine Kinase 42 (30-135) U/L CK-MB (CK-2) TNP CK-MB (CK-2) Rel Index TNP Troponin I < 0.012 (0.01-0.034) ng/mL NT-Pro-B Natriuret Pep 804 H (<450) pg/mL Total Protein (6.3-8.2) g/dL Albumin (3.5-5.0) g/dL Globulin (1.7-4.1) g/dL Albumin/Globulin Ratio (1.0-2.8) Blood Type Antibody Screen Antibody Identification Urine Dip Bedside Urine Glucose Negative Bedside Urine Bilirubin - Negative Bedside Urine Ketone - Negative Urine Specific [place] 1.015 Bedside Urine Occult Blood - Negative Bedside Urine pH 6.0 Bedside Urine Protein - Negative Bedside Urine Urobilinogen - Negative Bedside Urine Nitrite - Negative Bedside Urine Leukocytes - Negative Esterase Discharge Plan Departure Patient Disposition: Home Clinical Impression: Weakness, Fracture of scaphoid Instructions: Wrist Fracture Activity Restrictions/Additional Instructions: *You have been diagnosed with acute weakness, right scaphoid fracture *What to do: *Please continue to take your regular medications as directed. [ ] New medication prescriptions sent to your pharmacy: [ ] [ ] New medication written as a paper prescription [X] No new medications given *Please follow up with your primary care provider in 2-3 days, call for an appointment. Let them know you were seen in the Emergency Department and that we ask that you be seen in follow up. We will electronically transmit a record of today's note if your PCP is in our system. *Please follow-up with [facility]. Office can be reached at . *If you do not have a primary care provider please contact the [facility] Resource line at [phone]. They will ask some questions about your medical history and help get you set up with a doctor in the community. *Return to Emergency Department if you should have any new, worsening or concerning symptoms, such as fever greater than 101 F, shaking chills, worsening pain, worsening weakness, blood in stool, blood in at emesis, persistent vomiting or other bothersome symptoms. Prescriptions: No Action pravastatin 40 MG tablet 40 mg PO HS Qty: 0 0RF lisinopril 10 MG tablet 10 mg PO QAM Qty: 0 0RF pantoprazole 40 mg Tablet,Delayed Release (Dr/Ec) 40 mg PO BID 0RF ferrous sulfate [Iron (ferrous sulfate)] 325 mg (65 mg iron) Tablet 325 mg PO TID 0RF Label Comments: pt stopped Iron @ 11/18 r/t constipation. clindamycin HCl 300 mg capsule 300 mg PO Q6H Qty: 28 0RF Referrals: Jonny Love MD [Primary Care Provider] - Ginna Nichole MD [Physician] - As soon as possible <Junaid Benitez MD - Last Filed: 08/02/21 08:26> [facility]: I personally evaluated and examined the patient and agree with the assessment, treatment plan, and disposition of the patient as recorded by the APC.
[2021-08-01 13:40] LABS: Creatine Kinase 42 U/L (30-135)
--- NOTE | 2021-08-01 13:48 | DI.RAD.S_ITS ---
PROCEDURE: XR HAND RT MIN 3V INDICATIONS: injury TECHNIQUE: 3 views of the hand(s) acquired. COMPARISON: None. FINDINGS: Bones: No fractures or dislocations. Moderate to severe diffuse IP degenerative changes are present. There is subluxation at the 2nd DIP joint. Soft tissues: No suspicious soft tissue calcifications. IMPRESSION: No visualized acute fracture or dislocation. However, if clinical concern and/or pain persist, short interval imaging followup in 7-10 days is recommended, as occult injury cannot be definitively excluded. Dictated by: Vicki Tovar M.D. on 08/01/2021 at 14:45 Approved by: Vicki Tovar M.D. on 08/01/2021 at 14:46
--- NOTE | 2021-08-01 13:48 | DI.RAD.S_ITS ---
PROCEDURE: XR WRIST RT MIN 3V INDICATIONS: injury TECHNIQUE: 4 views of the wrist were acquired. COMPARISON: None. FINDINGS: Bones/Scaphoid view: There is ill-defined nondisplaced lucency within the superior pole of the scaphoid bone. Soft tissues: No suspicious soft tissue calcifications. IMPRESSION: Nondisplaced scaphoid fracture. Dictated by: Vicki Tovar M.D. on 08/01/2021 at 14:46 Approved by: Vicki Tovar M.D. on 08/01/2021 at 14:48
--- NOTE | 2021-08-01 13:48 | DI.RAD.S_ITS ---
PROCEDURE: XR HAND LT MIN 3V INDICATIONS: injury TECHNIQUE: 3 views of the hand(s) acquired. COMPARISON: None. FINDINGS: Bones: No fractures or dislocations. Carpal bones are normally aligned. No suspicious bony lesions. [id number] scattered IP degenerative changes are present. Soft tissues: No suspicious soft tissue calcifications. IMPRESSION: No visualized acute fracture or dislocation. However, if clinical concern and/or pain persist, short interval imaging followup in 7-10 days is recommended, as occult injury cannot be definitively excluded. Dictated by: Vicki Tovar M.D. on 08/01/2021 at 14:43 Approved by: Vicki Tovar M.D. on 08/01/2021 at 14:45
[2021-08-01 13:53] LABS: Troponin I < 0.012 ng/mL (0.01-0.034)
[2021-08-01 14:19] LABS: NT-proBNP (BNP-Adult 18+) 804 pg/mL (<450)
--- NOTE | 2021-08-01 14:40 | DI.RAD.S_ITS ---
PROCEDURE: XR CHEST 1V INDICATIONS: Elevated BNP TECHNIQUE: One view of the chest was acquired. COMPARISON: [facility], CR, XR CHEST 1V, 03/23/2021, 12:32. FINDINGS: Surgical changes and devices: Pacemaker. Lungs and pleura: Lungs are clear. No pleural effusions or pneumothorax. Mediastinum: Mediastinal contours appear normal. Heart size is mildly enlarged. Bones and chest wall: No suspicious bony lesions. Overlying soft tissues appear unremarkable. IMPRESSION: No acute pulmonary process. Dictated by: Vicki Tovar M.D. on 08/01/2021 at 15:18 Approved by: Vicki Tovar M.D. on 08/01/2021 at 15:30
== END 2021-08-01 16:24 | disposition home or self-care (01) ==
PROVIDERS: Emergency Medicine; Emergency Provider Physician Assistant; PCP Internal Medicine
DX: R53.1 Weakness (principal); S62.001A Unspecified fracture of navicular [scaphoid] bone of right wrist, initial encounter for closed fracture; X58.XXXA Exposure to other specified factors, initial encounter
CPT/HCPCS: 29125; 36415; 71045; 73110; 73130; 80053; 81003; 82550; 83880; 84484; 85025; 86850; 86870; 86900; 86901; 99284

== ENCOUNTER 2021-08-19 07:48 | Emergency (ER) | payer MEDICARE, SELFPAY ==
[2021-08-19] VITALS (67 sets, daily range): BP systolic 112–176; BP diastolic 49–82; PULSE 63–90; RESP 14–41; TEMP 36.3–36.8; O2SAT 95–100; BMI 24.1
--- NOTE | 2021-08-19 07:52 | ED_ITS ---
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 She states she feels like she does when her blood counts are low. She denies any black or tarry stool. She denies any vomiting or hematemesis. She has had no blood in her urine. She denies any fever or chills. She has had no runny nose, sore throat or cough. She denies any chest pain or shortness of br eath. Related Data Home Medications Medication Instructions Recorded Confirmed lisinopril 10 mg tablet 20 mg PO QAM #0 08/15/17 08/19/21 ferrous sulfate 325 mg (65 mg 325 mg PO DAILY 11/25/20 08/19/21 iron) tablet (Iron (ferrous sulfate)) rosuvastatin 20 mg tablet 20 mg PO QPM 08/19/21 08/19/21 Allergies Allergy/AdvReac Type Severity Reaction Status Date / Time ezetimibe [EZETIMIBE] Allergy Unknown Verified 08/01/21 11:32 simvastatin [SIMVASTATIN] AdvReac Intermediate MYALGIAS Verified 08/01/21 11:32 Review of Systems <Carrington Mark DO - Last Filed: 08/20/21 11:29> Review of Systems Narrative: GENERAL: See HPI HEENT: Denies sinus pain, ear pain, sore throat, difficulty swallowing, dizziness. RESPIRATORY: Denies dyspnea, cough, wheezing, hemoptysis, sputum. CARDIOVASCULAR: Denies chest pain, palpitations, orthopnea, edema, GASTROINTESTINAL: Denies nausea, vomiting, abdominal pain, diarrhea, constipation, melena. : Denies dysuria, frequency, incontinence, hematuria, urinary retention. MUSCULOSKELETAL: denies weakness, joint pain, or bony pain SKIN: Denies rash, skin lesions, or other NEUROLOGIC: Denies weakness, headache, numbness, change in speech, confusion, seizures, incoordination. PSYCHIATRIC: No concerning psychosocial issues. 12 point review of systems is negative except for those stated above Patient History <DO Jaciel Engle Last Filed: 08/20/21 11:29> Medical History GI bleed Hyperlipidemia Hypertension Surgical History S/P TAVR (transcatheter aortic valve replacement) Social History Smoking Status: Former smoker Smoking Status: Former smoker alcohol intake frequency: holidays/special occasions only Substance Use Type: does not use Exam <DO Jaciel Engle Last Filed: 08/20/21 11:29> Narrative Exam Narrative: GENERAL: [86 year old patient appears stated age. Well-developed patient, in mild distress. HEAD: Atraumatic. Normocephalic. EYES: Pale conjunctiva Pupils equal round and reactive. Extraocular motions intact. No scleral icterus. No injection or drainage. ENT: Nose without bleeding, purulent drainage. Throat without erythema, tonsillar hypertrophy or exudate. Airway patent. NECK: Trachea midline. Non tender CARDIOVASCULAR: Regular rate and rhythm without murmurs, gallops, or rubs. RESPIRATORY: Clear to auscultation. Breath sounds equal bilaterally. No wheezes, rales, or rhonchi. GASTROINTESTINAL: Abdomen soft, non-tender, nondistended. RECTAL: Heme-positive. Painless exam. 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 BACK: Nontender without deformity or crepitance. No flank tenderness. NEURO: AOx3. SKIN: No rash or erythema of visible areas Initial Vital Signs Initial Vital Signs: Vital Signs Pulse Rate 79 08/19/21 07:51 Respiratory Rate 32 H 08/19/21 07:51 Pulse Oximetry 100 08/19/21 07:51 <Jenniffer An DO - Last Filed: 08/21/21 05:16> Initial Vital Signs Initial Vital Signs: Vital Signs Pulse Rate 79 08/19/21 07:51 Respiratory Rate 32 H 08/19/21 07:51 Pulse Oximetry 100 08/19/21 07:51 Course <DO Jaciel Engle Last Filed: 08/20/21 11:29> Course Course Narrative: 0700 -patient received back in sign-out. She had an uneventful night, no significant bleeding, repeat H&H is stable. Still no beds 1115 - repeat H/H now up to 9.7. Patient asymptomatic. No longer SOB or fatigue d. 1115 - call back to [facility]. After discussing history, physical, response to transfusions and stable condition she no longer meets admission criteria let alone transfer. Patient is stable and appropriate for discharge with return precautions and plans for follow up. He will send a message to [facility] GI schedulers and also recommends follow up with local GI as well. Orders Ordered: Discontinued Medications Ferrous Sulfate (Ferrous Sulfate 325 Mg Tablet) 325 mg PO QNOON [facility] Furosemide (Furosemide 40 Mg/4 Ml Vial) 40 mg IV NOW ONE Stop: 08/19/21 09:07 Last Admin: 08/19/21 09:16 Dose: 40 mg Documented by: CIARAN Lisinopril (Lisinopril 20 Mg Tablet) 20 mg PO DAILY [facility] Last Admin: 08/20/21 08:58 Dose: 20 mg Documented by: CIARAN Pantoprazole Sodium (Pantoprazole 40 Mg Vial) 40 mg IV NOW ONE Stop: 08/19/21 07:52 Last Admin: 08/19/21 08:25 Dose: 40 mg Documented by: JAS Pantoprazole Sodium (Pantoprazole 40 Mg Vial) 40 mg IV BID [facility] Last Admin: 08/20/21 08:58 Dose: 40 mg Documented by: Admin: 08/19/21 22:09 Dose: 40 mg Documented by: DIANA Consultations Consultation #1: Upon receipt of labs I placed a call to GI at [facility]. 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 She was supposed to have had the completion of the study down there 2 weeks ago but it was canceled. Recommendation is to transfuse and attempt to transfer the patient if possible. Consultation #2: call to [facility], Prem, [facility], /[facility], . No beds. wait listed at various. Vital Signs Vital signs: Vital Signs - 8 hr 08/20/21 03:30 08/20/21 04:00 08/20/21 04:27 Pulse Rate 62 64 69 Respiratory Rate 23 17 20 Blood Pressure 119/53 L Pulse Oximetry 97 12/18/21 04:30 08/20/21 05:00 08/20/21 05:30 Pulse Rate 71 65 70 Respiratory Rate 18 15 19 Blood Pressure Pulse Oximetry 98 93 93 08/20/21 06:00 08/20/21 06:30 08/20/21 07:00 Pulse Rate 69 65 66 Respiratory Rate 18 12 18 Blood Pressure Pulse Oximetry 93 94 94 08/20/21 07:30 08/20/21 08:00 08/20/21 08:30 Pulse Rate 67 73 69 Respiratory Rate 18 19 14 Blood Pressure Pulse Oximetry 93 93 94 08/20/21 08:58 08/20/21 09:00 08/20/21 09:30 Pulse Rate 79 77 72 Respiratory Rate 22 Blood Pressure 127/75 127/76 Pulse Oximetry 96 08/20/21 09:55 08/20/21 10:00 08/20/21 10:30 Pulse Rate 87 72 73 Respiratory Rate 22 25 H Blood Pressure 149/63 H Pulse Oximetry 97 95 98 <Jenniffer An, - Last Filed: 08/21/21 05:16> Orders Ordered: Discontinued Medications Ferrous Sulfate (Ferrous Sulfate 325 Mg Tablet) 325 mg PO QNOON [facility] Furosemide (Furosemide 40 Mg/4 Ml Vial) 40 mg IV NOW ONE Stop: 08/19/21 09:07 Last Admin: 08/19/21 09:16 Dose: 40 mg Documented by: CIARAN Lisinopril (Lisinopril 20 Mg Tablet) 20 mg PO DAILY [facility] Last Admin: 08/20/21 08:58 Dose: 20 mg Documented by: CIARAN Pantoprazole Sodium (Pantoprazole 40 Mg Vial) 40 mg IV NOW ONE Stop: 08/19/21 07:52 Last Admin: 08/19/21 08:25 Dose: 40 mg Documented by: JAS Pantoprazole Sodium (Pantoprazole 40 Mg Vial) 40 mg IV BID [facility] Last Admin: 08/20/21 08:58 Dose: 40 mg Documented by: Admin: 08/19/21 22:09 Dose: 40 mg Documented by: DIANA Reevaluation(s) Reevaluation #1: Patient seen and evaluated independently by myself. Patient states she doesn't feel much different after transfusion. No shortness of breath, no chest pain. Repeat hemoglobin planned for 2 hours after blood infusion. Patient aware of plan for transfer. Time: 18:55 Consultations Consultation #2: Call to [facility], [facility], [facility], [facility], /[facility], . No beds. wait listed at various. Vital Signs Vital signs: Vital Signs - 8 hr 08/20/21 03:30 08/20/21 04:00 08/20/21 04:27 Pulse Rate 62 64 69 Respiratory Rate 23 17 20 Blood Pressure 119/53 L Pulse Oximetry 97 08/20/21 04:30 08/20/21 05:00 08/20/21 05:30 Pulse Rate 71 65 70 Respiratory Rate 18 15 19 Blood Pressure Pulse Oximetry 98 93 93 08/20/21 06:00 08/20/21 06:30 08/20/21 07:00 Pulse Rate 69 65 66 Respiratory Rate 18 12 18 Blood Pressure Pulse Oximetry 93 94 94 08/20/21 07:30 08/20/21 08:00 08/20/21 08:30 Pulse Rate 67 73 69 Respiratory Rate 18 19 14 Blood Pressure Pulse Oximetry 93 93 94 08/20/21 08:58 08/20/21 09:00 08/20/21 09:30 Pulse Rate 79 77 72 Respiratory Rate 22 Blood Pressure 127/75 127/76 Pulse Oximetry 96 08/20/21 09:55 08/20/21 10:00 08/20/21 10:30 Pulse Rate 87 72 73 Respiratory Rate 22 25 H Blood Pressure 149/63 H Pulse Oximetry 97 95 98 MDM - GI Bleed <Carrington Mark, - Last Filed: 08/20/21 11:29> Lab Data Result diagrams: 08/20/21 10:30 08/20/21 04:15 Labs: Lab Results 08/19/21 08/19/21 08/19/21 Range/Units 07:50 07:50 07:50 WBC 5.8 (4.5-11.0) X10^3/uL RBC 2.59 L (4.0-5.2) X10^6/uL Hgb 7.3 L (12.0-16.0) g/dL Hct 21.5 L (36-46) % MCV 83.0 (80-100) fL MCH 28.2 (26-34) PG MCHC 34.0 (30-36) % RDW 14.7 (11.6-14.8) % Plt Count 391 (150-400) X10^3/uL Neut % (Auto) 78.2 H (50-75) % Lymph % (Auto) 9.3 L (25-40) % Mcmullen % (Auto) 9.9 (3-14) % Eos % (Auto) 1.7 L (2-4) % Baso % (Auto) 0.9 (0-2) % Neut # (Auto) 4600 (9435-1421) /uL Lymph # (Auto) 500 L (0738-6061) /uL Mcmullen # (Auto) 600 (0-900) /uL Eos # (Auto) 100 (0-450) /uL Baso # (Auto) 100 (0-100) /uL PT 14.0 H (10.1-12.7) SECONDS INR 1.2 (0.9-1.3) Sodium 135 L (137-145) mmol/L Potassium 4.5 (3.4-5.1) mmol/L Chloride 108 H (98-107) mmol/L Carbon Dioxide 20 L (22-32) mmol/L BUN 21 H (7-17) mg/dL Creatinine 0.95 (0.52-1.04) mg/dL Estimated GFR 55.9 L (>60) mL/min BUN/Creatinine Ratio 22.1 H (6-22) Glucose 112 H (80-110) mg/dL Calcium 9.4 (8.4-10.2) mg/dL Total Bilirubin 0.3 (0.2-1.3) mg/dL AST 24 (14-36) IU/L ALT 22 (<35) IU/L Alkaline Phosphatase 76 (38-126) U/L Total Creatine Kinase 108 (30-135) U/L CK-MB (CK-2) 1.34 (<2.37) ng/mL CK-MB (CK-2) Rel Index 1.2 L (1.5-5.0) % Troponin I < 0.012 (0.01-0.034) ng/mL NT-Pro-B Natriuret Pep (<450) pg/mL Total Protein 6.8 (6.3-8.2) g/dL Albumin 3.6 (3.5-5.0) g/dL Globulin 3.2 (1.7-4.1) g/dL Albumin/Globulin Ratio 1.1 (1.0-2.8) Urine Color Urine Appearance Urine pH (4.5-8.0) Ur Specific [place] (1.000-1.035) Urine Protein (Negative) Urine Glucose (UA) (Negative) g/dL Urine Ketones (NEGATIVE) Urine Occult Blood (Negative) Urine Nitrate (Negative) Urine Bilirubin (NEGATIVE) Urine Urobilinogen (0.2) E.U./dL Ur Leukocyte Esterase (NEGATIVE) Urine RBC (0-5/HPF) Urine WBC (0-5/HPF) Ur Squamous Epith Cells (0-5/HPF) Urine Bacteria (None) Hyaline Casts (None) Ur Culture Indicated? SARS-CoV-2 (PCR) (Negative) Blood Type Antibody Screen Antibody Identification Crossmatch 08/19/21 08/19/21 08/19/21 Range/Units 07:50 07:50 07:50 WBC (4.5-11.0) X10^3/uL RBC (4.0-5.2) X10^6/uL Hgb (12.0-16.0) g/dL Hct (36-46) % MCV (80-100) fL MCH (26-34) PG MCHC (30-36) % RDW (11.6-14.8) % Plt Count (150-400) X10^3/uL Neut % (Auto) (50-75) % Lymph % (Auto) (25-40) % [place]mullen % (Auto) (3-14) % Eos % (Auto) (2-4) % Baso % (Auto) (0-2) % Neut # (Auto) (1612-8737) /uL Lymph # (Auto) (6223-8076) /uL Mcmullen # (Auto) (0-900) /uL Eos # (Auto) (0-450) /uL Baso # (Auto) (0-100) /uL PT (10.1-12.7) SECONDS INR (0.9-1.3) Sodium (137-145) mmol/L Potassium (3.4-5.1) mmol/L Chloride (98-107) mmol/L Carbon Dioxide (22-32) mmol/L BUN (7-17) mg/dL Creatinine (0.52-1.04) mg/dL Estimated GFR (>60) mL/min BUN/Creatinine Ratio (6-22) Glucose (80-110) mg/dL Calcium (8.4-10.2) mg/dL Total Bilirubin (0.2-1.3) mg/dL AST (14-36) IU/L ALT (<35) IU/L Alkaline Phosphatase (38-126) U/L Total Creatine Kinase (30-135) U/L CK-MB (CK-2) (<2.37) ng/mL CK-MB (CK-2) Rel Index (1.5-5.0) % Troponin I (0.01-0.034) ng/mL NT-Pro-B Natriuret Pep 1480 H (<450) pg/mL Total Protein (6.3-8.2) g/dL Albumin (3.5-5.0) g/dL Globulin (1.7-4.1) g/dL Albumin/Globulin Ratio (1.0-2.8) Urine Color Urine Appearance Urine pH (4.5-8.0) Ur Specific [place] (1.000-1.035) Urine Protein (Negative) Urine Glucose (UA) (Negative) g/dL Urine Ketones (NEGATIVE) Urine Occult Blood (Negative) Urine Nitrate (Negative) Urine Bilirubin (NEGATIVE) Urine Urobilinogen (0.2) E.U./dL Ur Leukocyte Esterase (NEGATIVE) Urine RBC (0-5/HPF) Urine WBC (0-5/HPF) Ur Squamous Epith Cells (0-5/HPF) Urine Bacteria (None) Hyaline Casts (None) Ur Culture Indicated? SARS-CoV-2 (PCR) Negative (Negative) Blood Type AB Positive Antibody Screen Positive Antibody Identification Anti-M Crossmatch See Detail 08/19/21 08/19/21 08/20/21 Range/Units 08:30 19:45 04:15 WBC 5.1 (4.5-11.0) X10^3/uL RBC 3.23 L (4.0-5.2) X10^6/uL Hgb 9.6 L 9.1 L (12.0-16.0) g/dL Hct 27.9 L 27.2 L (36-46) % MCV 84.2 (80-100) fL MCH 28.0 (26-34) PG MCHC 33.3 (30-36) % RDW 14.7 (11.6-14.8) % Plt Count 356 (150-400) X10^3/uL Neut % (Auto) 76.3 H (50-75) % Lymph % (Auto) 8.7 L (25-40) % Mcmullen % (Auto) 11.9 (3-14) % Eos % (Auto) 2.1 (2-4) % Baso % (Auto) 1.0 (0-2) % Neut # (Auto) 3900 (5404-5220) /uL Lymph # (Auto) 400 L (3615-1466) /uL [place] # (Auto) 600 (0-900) /uL Eos # (Auto) 100 (0-450) /uL Baso # (Auto) 100 (0-100) /uL PT (10.1-12.7) SECONDS INR (0.9-1.3) Sodium (137-145) mmol/L Potassium (3.4-5.1) mmol/L Chloride (98-107) mmol/L Carbon Dioxide (22-32) mmol/L BUN (7-17) mg/dL Creatinine (0.52-1.04) mg/dL Estimated GFR (>60) mL/min BUN/Creatinine Ratio (6-22) Glucose (80-110) mg/dL Calcium (8.4-10.2) mg/dL Total Bilirubin (0.2-1.3) mg/dL AST (14-36) IU/L ALT (<35) IU/L Alkaline Phosphatase (38-126) U/L Total Creatine Kinase (30-135) U/L CK-MB (CK-2) (<2.37) ng/mL CK-MB (CK-2) Rel Index (1.5-5.0) % Troponin I (0.01-0.034) ng/mL NT-Pro-B Natriuret Pep (<450) pg/mL Total Protein (6.3-8.2) g/dL Albumin (3.5-5.0) g/dL Globulin (1.7-4.1) g/dL Albumin/Globulin Ratio (1.0-2.8) Urine Color Yellow Urine Appearance Clear Urine pH 6.5 (4.5-8.0) Ur Specific [place] 1.010 (1.000-1.035) Urine Protein Negative (Negative) Urine Glucose (UA) Negative (Negative) g/dL Urine Ketones Negative (NEGATIVE) Urine Occult Blood Negative (Negative) Urine Nitrate Negative (Negative) Urine Bilirubin Negative (NEGATIVE) Urine Urobilinogen 0.2 (0.2) E.U./dL Ur Leukocyte Esterase Negative (NEGATIVE) Urine RBC None seen (0-5/HPF) Urine WBC 0-1/hpf (0-5/HPF) Ur Squamous Epith Cells 0-1 /hpf (0-5/HPF) Urine Bacteria None seen (None) Hyaline Casts 0-1/lpf (None) Ur Culture Indicated? Cult not indicated SARS-CoV-2 (PCR) (Negative) Blood Type Antibody Screen Antibody Identification Crossmatch 08/20/21 08/20/21 08/20/21 Range/Units 04:15 04:15 10:30 WBC (4.5-11.0) X10^3/uL RBC (4.0-5.2) X10^6/uL Hgb 9.7 L (12.0-16.0) g/dL Hct 28.8 L (36-46) % MCV (80-100) fL MCH (26-34) PG MCHC (30-36) % RDW (11.6-14.8) % Plt Count (150-400) X10^3/uL Neut % (Auto) (50-75) % Lymph % (Auto) (25-40) % [place] % (Auto) (3-14) % Eos % (Auto) (2-4) % Baso % (Auto) (0-2) % Neut # (Auto) (7449-9079) /uL Lymph # (Auto) (2831-6695) /uL [place] # (Auto) (0-900) /uL Eos # (Auto) (0-450) /uL Baso # (Auto) (0-100) /uL PT (10.1-12.7) SECONDS INR (0.9-1.3) Sodium 135 L (137-145) mmol/L Potassium 3.8 (3.4-5.1) mmol/L Chloride 107 (98-107) mmol/L Carbon Dioxide 22 (22-32) mmol/L BUN 22 H (7-17) mg/dL Creatinine 1.03 (0.52-1.04) mg/dL Estimated GFR 50.9 L (>60) mL/min BUN/Creatinine Ratio 21.4 (6-22) Glucose 98 (80-110) mg/dL Calcium 9.3 (8.4-10.2) mg/dL Total Bilirubin 0.8 (0.2-1.3) mg/dL AST 22 (14-36) IU/L ALT 19 (<35) IU/L Alkaline Phosphatase 66 (38-126) U/L Total Creatine Kinase (30-135) U/L CK-MB (CK-2) (<2.37) ng/mL CK-MB (CK-2) Rel Index (1.5-5.0) % Troponin I (0.01-0.034) ng/mL NT-Pro-B Natriuret Pep 1740 H (<450) pg/mL Total Protein 6.8 (6.3-8.2) g/dL Albumin 3.4 L (3.5-5.0) g/dL Globulin 3.4 (1.7-4.1) g/dL Albumin/Globulin Ratio 1.0 (1.0-2.8) Urine Color Urine Appearance Urine pH (4.5-8.0) Ur Specific [place] (1.000-1.035) Urine Protein (Negative) Urine Glucose (UA) (Negative) g/dL Urine Ketones (NEGATIVE) Urine Occult Blood (Negative) Urine Nitrate (Negative) Urine Bilirubin (NEGATIVE) Urine Urobilinogen (0.2) E.U./dL Ur Leukocyte Esterase (NEGATIVE) Urine RBC (0-5/HPF) Urine WBC (0-5/HPF) Ur Squamous Epith Cells (0-5/HPF) Urine Bacteria (None) Hyaline Casts (None) Ur Culture Indicated? SARS-CoV-2 (PCR) (Negative) Blood Type Antibody Screen Antibody Identification Crossmatch Imaging Data Chest x-ray: Radiologist's Impression: Rabia Calixto??86??F??1935 ? Allergy/Adv: ezetimibe, simvastatin (More??) Close Chest X-Ray (Signed) Andrey Rodas - 08/19/21 Chest X-Ray (Signed) Vicki Tovar - 08/01/21 Wrist X-Ray (Signed) TovarVicki - 08/01/21 Hand X-Ray (Signed) Tovar,Vicki - 08/01/21 Hand X-Ray (Signed) Tovar,Vicki - 08/01/[address] (Signed) Keanu Higgins - 03/27/21 Chest X-Ray (Signed) Christoph Nicholas - 03/23/21 Knee X-Ray (Signed) Nic Oneill - 03/21/21 Chest X-Ray (Signed) Nic Oneill - 11/25/20 Telemetry Strips 11/25/20 Echocardiogram Ultrasound (Signed) Jing Radford - 05/13/20 Echocardiogram Ultrasound (Signed) Jing Radford - 01/23/19 Bone Densitometry 11/08/18 Radiology - Historical 05/10/17 Radiology - Historical 01/22/17 Radiology - Historical 01/12/17 Radiology - Historical 06/30/16 Radiology - Historical 06/27/16 Radiology - Historical 06/13/16 Radiology - Historical 05/30/16 Radiology - Historical 04/28/16 Radiology - Historical 04/28/16 Radiology - Historical 03/31/16 Launch?[place] [address] XRay Report Signed Patient: Rabia Calixto MR#: [id number] : 1935 Acct:[id number] Age/Sex: 86 / F Date of Service: 08/19/21 Loc: Accession Number: [id number] ?? Procedure: XR chest 1V Ordering Provider: Carrington Mark D.O. PROCEDURE:? XR CHEST 1V ? INDICATIONS:? weakness ? TECHNIQUE:? One view of the chest was acquired.? ? COMPARISON:? [facility], , XR CHEST 1V, 08/01/2021, 14:42. ? FINDINGS:? ? Surgical changes and devices:? Redemonstrated left cardiac device and valve prosthesis. ? Lungs and pleura:? No consolidation, pleural effusions or pneumothorax.? ? Mediastinum:? Mediastinal contours appear normal.? Heart size is normal.? ? Bones and chest wall:? No suspicious bony lesions.? Overlying soft tissues appear unremarkable.? ? IMPRESSION:? No acute cardiopulmonary abnormality. ? ? Dictated by: Andrey Rodas M.D. on 08/19/2021 at 8:20 ? ? Approved by: Andrey Rodas M.D. on 08/19/2021 at 8:24? MDM Narrative Medical decision making narrative: Patient signed out to Dr. Mark while awaiting transfer. There are no beds currently in the region. Patient's hemoglobin was stable approximately 8 hours after post transfusion hemoglobin. Patient has not had any hypotension that had been made aware of and has been asymptomatic without any additional bright red blood or black tarry stools overnight. Patient initially presented with symptomatic anemia and mild GI bleed. She has a complex history and patient was transfused a few units and attempts were made to transfer after initial discussion with [facility]. There have been no beds available, patient has been in the emergency department for 27 hours. She remains stable, hemoglobin is rising even after transfusion. Patient is asymptomatic and at her baseline. She has been given extensive return precautions. She understands and agrees with the plan. She has had questions answered to her apparent satisfaction <Jenniffer An, DO - Last Filed: 08/21/21 05:16> Lab Data Labs: Lab Results 08/19/21 08/19/21 08/19/21 Range/Units 07:50 07:50 07:50 WBC 5.8 (4.5-11.0) X10^3/uL RBC 2.59 L (4.0-5.2) X10^6/uL Hgb 7.3 L (12.0-16.0) g/dL Hct 21.5 L (36-46) % MCV 83.0 (80-100) fL MCH 28.2 (26-34) PG MCHC 34.0 (30-36) % RDW 14.7 (11.6-14.8) % Plt Count 391 (150-400) X10^3/uL Neut % (Auto) 78.2 H (50-75) % Lymph % (Auto) 9.3 L (25-40) % [place] % (Auto) 9.9 (3-14) % Eos % (Auto) 1.7 L (2-4) % Baso % (Auto) 0.9 (0-2) % Neut # (Auto) 4600 (6351-1095) /uL Lymph # (Auto) 500 L (7513-4729) /uL [place] # (Auto) 600 (0-900) /uL Eos # (Auto) 100 (0-450) /uL Baso # (Auto) 100 (0-100) /uL PT 14.0 H (10.1-12.7) SECONDS INR 1.2 (0.9-1.3) Sodium 135 L (137-145) mmol/L Potassium 4.5 (3.4-5.1) mmol/L Chloride 108 H (98-107) mmol/L Carbon Dioxide 20 L (22-32) mmol/L BUN 21 H (7-17) mg/dL Creatinine 0.95 (0.52-1.04) mg/dL Estimated GFR 55.9 L (>60) mL/min BUN/Creatinine Ratio 22.1 H (6-22) Glucose 112 H (80-110) mg/dL Calcium 9.4 (8.4-10.2) mg/dL Total Bilirubin 0.3 (0.2-1.3) mg/dL AST 24 (14-36) IU/L ALT 22 (<35) IU/L Alkaline Phosphatase 76 (38-126) U/L Total Creatine Kinase 108 (30-135) U/L CK-MB (CK-2) 1.34 (<2.37) ng/mL CK-MB (CK-2) Rel Index 1.2 L (1.5-5.0) % Troponin I < 0.012 (0.01-0.034) ng/mL NT-Pro-B Natriuret Pep (<450) pg/mL Total Protein 6.8 (6.3-8.2) g/dL Albumin 3.6 (3.5-5.0) g/dL Globulin 3.2 (1.7-4.1) g/dL Albumin/Globulin Ratio 1.1 (1.0-2.8) Urine Color Urine Appearance Urine pH (4.5-8.0) Ur Specific [place] (1.000-1.035) Urine Protein (Negative) Urine Glucose (UA) (Negative) g/dL Urine Ketones (NEGATIVE) Urine Occult Blood (Negative) Urine Nitrate (Negative) Urine Bilirubin (NEGATIVE) Urine Urobilinogen (0.2) E.U./dL Ur Leukocyte Esterase (NEGATIVE) Urine RBC (0-5/HPF) Urine WBC (0-5/HPF) Ur Squamous Epith Cells (0-5/HPF) Urine Bacteria (None) Hyaline Casts (None) Ur Culture Indicated? SARS-CoV-2 (PCR) (Negative) Blood Type Antibody Screen Antibody Identification Crossmatch 08/19/21 08/19/21 08/19/21 Range/Units 07:50 07:50 07:50 WBC (4.5-11.0) X10^3/uL RBC (4.0-5.2) X10^6/uL Hgb (12.0-16.0) g/dL Hct (36-46) % MCV (80-100) fL MCH (26-34) PG MCHC (30-36) % RDW (11.6-14.8) % Plt Count (150-400) X10^3/uL Neut % (Auto) (50-75) % Lymph % (Auto) (25-40) % [place] % (Auto) (3-14) % Eos % (Auto) (2-4) % Baso % (Auto) (0-2) % Neut # (Auto) (3609-3110) /uL Lymph # (Auto) (0619-7356) /uL [place] # (Auto) (0-900) /uL Eos # (Auto) (0-450) /uL Baso # (Auto) (0-100) /uL PT (10.1-12.7) SECONDS INR (0.9-1.3) Sodium (137-145) mmol/L Potassium (3.4-5.1) mmol/L Chloride (98-107) mmol/L Carbon Dioxide (22-32) mmol/L BUN (7-17) mg/dL Creatinine (0.52-1.04) mg/dL Estimated GFR (>60) mL/min BUN/Creatinine Ratio (6-22) Glucose (80-110) mg/dL Calcium (8.4-10.2) mg/dL Total Bilirubin (0.2-1.3) mg/dL AST (14-36) IU/L ALT (<35) IU/L Alkaline Phosphatase (38-126) U/L Total Creatine Kinase (30-135) U/L CK-MB (CK-2) (<2.37) ng/mL CK-MB (CK-2) Rel Index (1.5-5.0) % Troponin I (0.01-0.034) ng/mL NT-Pro-B Natriuret Pep 1480 H (<450) pg/mL Total Protein (6.3-8.2) g/dL Albumin (3.5-5.0) g/dL Globulin (1.7-4.1) g/dL Albumin/Globulin Ratio (1.0-2.8) Urine Color Urine Appearance Urine pH (4.5-8.0) Ur Specific [place] (1.000-1.035) Urine Protein (Negative) Urine Glucose (UA) (Negative) g/dL Urine Ketones (NEGATIVE) Urine Occult Blood (Negative) Urine Nitrate (Negative) Urine Bilirubin (NEGATIVE) Urine Urobilinogen (0.2) E.U./dL Ur Leukocyte Esterase (NEGATIVE) Urine RBC (0-5/HPF) Urine WBC (0-5/HPF) Ur Squamous Epith Cells (0-5/HPF) Urine Bacteria (None) Hyaline Casts (None) Ur Culture Indicated? SARS-CoV-2 (PCR) Negative (Negative) Blood Type AB Positive Antibody Screen Positive Antibody Identification Anti-M Crossmatch See Detail 08/19/21 08/19/21 08/20/21 Range/Units 08:30 19:45 04:15 WBC 5.1 (4.5-11.0) X10^3/uL RBC 3.23 L (4.0-5.2) X10^6/uL Hgb 9.6 L 9.1 L (12.0-16.0) g/dL Hct 27.9 L 27.2 L (36-46) % MCV 84.2 (80-100) fL MCH 28.0 (26-34) PG MCHC 33.3 (30-36) % RDW 14.7 (11.6-14.8) % Plt Count 356 (150-400) X10^3/uL Neut % (Auto) 76.3 H (50-75) % Lymph % (Auto) 8.7 L (25-40) % [place] % (Auto) 11.9 (3-14) % Eos % (Auto) 2.1 (2-4) % Baso % (Auto) 1.0 (0-2) % Neut # (Auto) 3900 (2950-7296) /uL Lymph # (Auto) 400 L (7821-3514) /uL [place] # (Auto) 600 (0-900) /uL Eos # (Auto) 100 (0-450) /uL Baso # (Auto) 100 (0-100) /uL PT (10.1-12.7) SECONDS INR (0.9-1.3) Sodium (137-145) mmol/L Potassium (3.4-5.1) mmol/L Chloride (98-107) mmol/L Carbon Dioxide (22-32) mmol/L BUN (7-17) mg/dL Creatinine (0.52-1.04) mg/dL Estimated GFR (>60) mL/min BUN/Creatinine Ratio (6-22) Glucose (80-110) mg/dL Calcium (8.4-10.2) mg/dL Total Bilirubin (0.2-1.3) mg/dL AST (14-36) IU/L ALT (<35) IU/L Alkaline Phosphatase (38-126) U/L Total Creatine Kinase (30-135) U/L CK-MB (CK-2) (<2.37) ng/mL CK-MB (CK-2) Rel Index (1.5-5.0) % Troponin I (0.01-0.034) ng/mL NT-Pro-B Natriuret Pep (<450) pg/mL Total Protein (6.3-8.2) g/dL Albumin (3.5-5.0) g/dL Globulin (1.7-4.1) g/dL Albumin/Globulin Ratio (1.0-2.8) Urine Color Yellow Urine Appearance Clear Urine pH 6.5 (4.5-8.0) Ur Specific [place] 1.010 (1.000-1.035) Urine Protein Negative (Negative) Urine Glucose (UA) Negative (Negative) g/dL Urine Ketones Negative (NEGATIVE) Urine Occult Blood Negative (Negative) Urine Nitrate Negative (Negative) Urine Bilirubin Negative (NEGATIVE) Urine Urobilinogen 0.2 (0.2) E.U./dL Ur Leukocyte Esterase Negative (NEGATIVE) Urine RBC None seen (0-5/HPF) Urine WBC 0-1/hpf (0-5/HPF) Ur Squamous Epith Cells 0-1 /hpf (0-5/HPF) Urine Bacteria None seen (None) Hyaline Casts 0-1/lpf (None) Ur Culture Indicated? Cult not indicated SARS-CoV-2 (PCR) (Negative) Blood Type Antibody Screen Antibody Identification Crossmatch 08/20/21 08/20/21 08/20/21 Range/Units 04:15 04:15 10:30 WBC (4.5-11.0) X10^3/uL RBC (4.0-5.2) X10^6/uL Hgb 9.7 L (12.0-16.0) g/dL Hct 28.8 L (36-46) % MCV (80-100) fL MCH (26-34) PG MCHC (30-36) % RDW (11.6-14.8) % Plt Count (150-400) X10^3/uL Neut % (Auto) (50-75) % Lymph % (Auto) (25-40) % [place] % (Auto) (3-14) % Eos % (Auto) (2-4) % Baso % (Auto) (0-2) % Neut # (Auto) (4787-0211) /uL Lymph # (Auto) (3564-5888) /uL [place] # (Auto) (0-900) /uL Eos # (Auto) (0-450) /uL Baso # (Auto) (0-100) /uL PT (10.1-12.7) SECONDS INR (0.9-1.3) Sodium 135 L (137-145) mmol/L Potassium 3.8 (3.4-5.1) mmol/L Chloride 107 (98-107) mmol/L Carbon Dioxide 22 (22-32) mmol/L BUN 22 H (7-17) mg/dL Creatinine 1.03 (0.52-1.04) mg/dL Estimated GFR 50.9 L (>60) mL/min BUN/Creatinine Ratio 21.4 (6-22) Glucose 98 (80-110) mg/dL Calcium 9.3 (8.4-10.2) mg/dL Total Bilirubin 0.8 (0.2-1.3) mg/dL AST 22 (14-36) IU/L ALT 19 (<35) IU/L Alkaline Phosphatase 66 (38-126) U/L Total Creatine Kinase (30-135) U/L CK-MB (CK-2) (<2.37) ng/mL CK-MB (CK-2) Rel Index (1.5-5.0) % Troponin I (0.01-0.034) ng/mL NT-Pro-B Natriuret Pep 1740 H (<450) pg/mL Total Protein 6.8 (6.3-8.2) g/dL Albumin 3.4 L (3.5-5.0) g/dL Globulin 3.4 (1.7-4.1) g/dL Albumin/Globulin Ratio 1.0 (1.0-2.8) Urine Color Urine Appearance Urine pH (4.5-8.0) Ur Specific [place] (1.000-1.035) Urine Protein (Negative) Urine Glucose (UA) (Negative) g/dL Urine Ketones (NEGATIVE) Urine Occult Blood (Negative) Urine Nitrate (Negative) Urine Bilirubin (NEGATIVE) Urine Urobilinogen (0.2) E.U./dL Ur Leukocyte Esterase (NEGATIVE) Urine RBC (0-5/HPF) Urine WBC (0-5/HPF) Ur Squamous Epith Cells (0-5/HPF) Urine Bacteria (None) Hyaline Casts (None) Ur Culture Indicated? SARS-CoV-2 (PCR) (Negative) Blood Type Antibody Screen Antibody Identification Crossmatch MDM Narrative Medical decision making narrative: Patient signed out to Dr. Mark while awaiting transfer. There are no beds currently in the region. Patient's hemoglobin was stable approximately 8 hours after post transfusion hemoglobin. Patient has not had any hypotension that had been made aware of and has been asymptomatic without any additional bright red blood or black tarry stools overnight. Critical Care Time <Carrington Mark, DO - Last Filed: 08/20/21 11:29> Critical Care Time Critical Care Time: Yes Total Critical Care Time: 60 Attestation: The high probability of a clinically significant, sudden or life threatening deterioration of the [GI/CV] system(s) required my full and direct attention, intervention and personal management. The aggregate critical care time was [] minutes. This time is in addition to time spent performing reported procedures but includes the following: [x] Data Review and interpretation [x] Patient assessment and monitoring of vital signs [x] Documentation [x] Medication orders and management Discharge Plan Departure Patient Disposition: Home Clinical Impression: GI bleed, Anemia Instructions: Gastrointestinal Bleeding Activity Restrictions/Additional Instructions: *You have been diagnosed with [symptomatic anemia from mild GI bleed. Your h istory, physical exam, ongoing labs, response to transfusion are all very reassuring. I have been in close contact with Gastroenterology at [facility] and we sure the opinion that you no longer need admission or transfer and are appropriate for discharge, as we discussed. *What to do: *Please continue to take your regular medications as directed. [ ] New medication prescriptions sent to your pharmacy: [ ] [ ] New medication written as a paper prescription [x ] No new medications given *Please follow up with your primary care provider in 2-3 days, call for an a ppointment. Let them know you were seen in the Emergency Department and that we ask that you be seen in follow up. We will electronically transmit a record of today's note if your PCP is in our system *Please follow up with Dr. Devi, call for an appointment. *If you do not have a primary care provider please contact the [facility] Resource line at [phone]. They will ask some questions about your medical history and help get you set up with a doctor in the community. *Return to Emergency Department if you should have any new, worsening or concerning symptoms, such as [fever greater than 101 F, shaking chills, worsening pain, persistent vomiting or other bothersome symptoms] Prescriptions: No Action lisinopril 10 MG tablet 20 mg PO QAM Qty: 0 0RF ferrous sulfate [Iron (ferrous sulfate)] 325 mg (65 mg iron) Tablet 325 mg PO DAILY 0RF Rx Instructions: pt takes at lunch rosuvastatin 20 mg tablet 20 mg PO QPM 0RF Referrals: Jonny Love MD [Primary Care Provider] - Mariela Devi MD [Physician] -
--- NOTE | 2021-08-19 07:52 | DI.RAD.S_ITS ---
PROCEDURE: XR CHEST 1V INDICATIONS: weakness TECHNIQUE: One view of the chest was acquired. COMPARISON: [facility], CR, XR CHEST 1V, 08/01/2021, 14:42. FINDINGS: Surgical changes and devices: Redemonstrated left cardiac device and valve prosthesis. Lungs and pleura: No consolidation, pleural effusions or pneumothorax. Mediastinum: Mediastinal contours appear normal. Heart size is normal. Bones and chest wall: No suspicious bony lesions. Overlying soft tissues appear unremarkable. IMPRESSION: No acute cardiopulmonary abnormality. Dictated by: Andrey Rodas M.D. on 08/19/2021 at 8:20 Approved by: Andrey Rodas M.D. on 08/19/2021 at 8:24
[2021-08-19 08:13] LABS: Add Manual Diff / Slide Review NO; Basophils Absolute Auto 100 /uL (0-100); Basophils Percent Auto 0.9 % (0-2); Eosinophils Absolute Auto 100 /uL (0-450); Eosinophils Percent Auto 1.7 % (2-4); Hematocrit 21.5 % (36-46); Hemoglobin 7.3 g/dL (12.0-16.0); Lymphocytes Absolute Auto 500 /uL (1100-4500); Lymphocytes Percent Auto 9.3 % (25-40); Mean Corpuscular Hemoglobin 28.2 PG (26-34); Monocytes Absolute Auto 600 /uL (0-900); Monocytes Percent Auto 9.9 % (3-14); Neutrophils Absolute Auto 4600 /uL (1500-7000); Neutrophils Percent Auto 78.2 % (50-75); Platelet Count 391 X10^3/uL (150-400); Red Blood Cell Count 2.59 X10^6/uL (4.0-5.2); Red Cell Distribution Width 14.7 % (11.6-14.8); White Blood Cell Count 5.8 X10^3/uL (4.5-11.0)
[2021-08-19 08:21] LABS: INR 1.2 (0.9-1.3)
[2021-08-19] MEDS: PANTOPRAZOLE 40 MG VIAL IV ×2 (08:25→22:09)
[2021-08-19 08:27] LABS: Alanine Aminotransferase 22 IU/L (<35); Albumin 3.6 g/dL (3.5-5.0); Albumin Globulin Ratio 1.1 (1.0-2.8); Alkaline Phosphatase 76 U/L (38-126); Aspartate Aminotransferase 24 IU/L (14-36); BUN Creatinine Ratio 22.1 (6-22); Bilirubin Total 0.3 mg/dL (0.2-1.3); Blood Urea Nitrogen 21 mg/dL (7-17); Calcium 9.4 mg/dL (8.4-10.2); Carbon Dioxide 20 mmol/L (22-32); Chloride 108 mmol/L (98-107); Creatine Kinase 108 U/L (30-135); Estimated Glomerular Filt Rate 55.9 mL/min (>60); Globulin 3.2 g/dL (1.7-4.1); Glucose 112 mg/dL (80-110); HEMOLYSIS < 15 (0-50); Potassium 4.5 mmol/L (3.4-5.1); Sodium 135 mmol/L (137-145); Total Protein 6.8 g/dL (6.3-8.2)
[2021-08-19 08:36] LABS: NT-proBNP (BNP-Adult 18+) 1480 pg/mL (<450)
[2021-08-19 08:39] LABS: Troponin I < 0.012 ng/mL (0.01-0.034)
[2021-08-19 08:43] LABS: CKMB % Relative Index 1.2 % (1.5-5.0); Creatine Kinase MB 1.34 ng/mL (<2.37)
[2021-08-19] MEDS: FUROSEMIDE 40 MG/4 ML VIAL IV (09:16)
[2021-08-19 09:42] LABS: Appearance Urine UA CLEAR; Bilirubin Urine UA NEGATIVE (NEGATIVE); Color Urine UA YELLOW; Glucose Urine UA NEGATIVE (Negative); Ketones Urine UA NEGATIVE (NEGATIVE); Leukocyte Esterase Urine UA NEGATIVE (NEGATIVE); Nitrite Urine UA NEGATIVE (Negative); Occult Blood Urine UA NEGATIVE (Negative); Protein Urine UA NEGATIVE (Negative); Urobilinogen Urine UA 0.2 E.U./dL (0.2); pH Urine UA 6.5 (4.5-8.0)
[2021-08-19 09:58] LABS: Bacteria Urine None Seen; Culture Indicated Urine Cult Not Indicated; Hyaline Casts Urine 0-1/LPF; RBC Urine None Seen (0-5/HPF); Squamous Epithelial Cell Urine 0-1 /HPF (0-5/HPF); WBC Urine 0-1/HPF (0-5/HPF)
[2021-08-19 11:02] LABS: COVID19 -Nasal RAPID Negative (Negative)
--- NOTE | 2021-08-19 12:05 | PC.NURSE ---
Provider requested to talk to patients [facility] Manager regarding this patient. I called [facility] and requested a provider to provider conversation with Dr. Patricia Jacques at 09:45. I was given the windows application developer provider pager line. I paged provider Elgin Roe M.D. at 09:49. Provider returned page at 10:25 and I connected him with Dr. Mark. Dr. Roe had requested that the patient be transfered to [facility]. I called [facility] at 10:30. [facility] refused to place patient on waiting list and is declining all patients outside of critical access hospitals. I was asked to make calls to place patient on waiting lists at all available local hospitals. Called [facility] at 10:35 and placed patient on waitlist Called [facility] at 10:43 and placed patient on waitlist Called [facility] at 10:[address] on waitlist. Informed waitlist is no too long and they have closed it to all future patients at this time. Called [facility] at 10:52 and placed patient on the waitlist. Called [facility] at 10:[address] patient on waitlist. planting supervisor declined placing any patients of waitlists at this time. Called [facility] at 11:05 and left message. [facility] returned call at 11:15. I placed patient on their list during this return call. Facesheet, Covid 19 results, and images pushed to all accepting hospitals.
[2021-08-19 20:16] LABS: Hematocrit 27.9 % (36-46); Hemoglobin 9.6 g/dL (12.0-16.0)
[2021-08-20] VITALS (29 sets, daily range): BP systolic 115–149; BP diastolic 52–76; PULSE 62–87; RESP 12–29; O2SAT 93–98
[2021-08-20 04:46] LABS: Add Manual Diff / Slide Review NO; Basophils Absolute Auto 100 /uL (0-100); Eosinophils Absolute Auto 100 /uL (0-450); Eosinophils Percent Auto 2.1 % (2-4); Hematocrit 27.2 % (36-46); Hemoglobin 9.1 g/dL (12.0-16.0); Lymphocytes Absolute Auto 400 /uL (1100-4500); Lymphocytes Percent Auto 8.7 % (25-40); Mean Corpuscular HGB Conc 33.3 % (30-36); Mean Corpuscular Volume 84.2 fL (80-100); Monocytes Absolute Auto 600 /uL (0-900); Monocytes Percent Auto 11.9 % (3-14); Neutrophils Absolute Auto 3900 /uL (1500-7000); Neutrophils Percent Auto 76.3 % (50-75); Platelet Count 356 X10^3/uL (150-400); Red Blood Cell Count 3.23 X10^6/uL (4.0-5.2); Red Cell Distribution Width 14.7 % (11.6-14.8); White Blood Cell Count 5.1 X10^3/uL (4.5-11.0)
[2021-08-20 04:54] LABS: Alanine Aminotransferase 19 IU/L (<35); Albumin 3.4 g/dL (3.5-5.0); Alkaline Phosphatase 66 U/L (38-126); Aspartate Aminotransferase 22 IU/L (14-36); BUN Creatinine Ratio 21.4 (6-22); Bilirubin Total 0.8 mg/dL (0.2-1.3); Blood Urea Nitrogen 22 mg/dL (7-17); Calcium 9.3 mg/dL (8.4-10.2); Carbon Dioxide 22 mmol/L (22-32); Chloride 107 mmol/L (98-107); Estimated Glomerular Filt Rate 50.9 mL/min (>60); Globulin 3.4 g/dL (1.7-4.1); Glucose 98 mg/dL (80-110); HEMOLYSIS < 15 (0-50); Potassium 3.8 mmol/L (3.4-5.1); Sodium 135 mmol/L (137-145); Total Protein 6.8 g/dL (6.3-8.2)
[2021-08-20 05:30] LABS: NT-proBNP (BNP-Adult 18+) 1740 pg/mL (<450)
[2021-08-20] MEDS: lisinopriL 20 MG TABLET PO (08:58)
[2021-08-20] MEDS: PANTOPRAZOLE 40 MG VIAL IV (08:58)
[2021-08-20 10:53] LABS: Hematocrit 28.8 % (36-46); Hemoglobin 9.7 g/dL (12.0-16.0)
--- NOTE | 2021-08-20 11:30 | PC.NURSE ---
Dr. Mark asked to speak to the oncall provider at [facility]. I placed a call request through their answering service at 11:10. The [facility] provider called back at 11:18 and connected him with Dr. Mark.
--- NOTE | 2021-08-20 12:40 | PC.NURSE ---
Pt informed of discharge at approximately 1130, pt stated neighbors could pick her up, RN called neighbors on pt behalf and they stated the could not. D/c delayed while contacting [employer] service, then pt stated she had another friend, Christian, to be called and they were able to pick pt up.
== END 2021-08-20 12:44 | disposition home or self-care (01) ==
PROVIDERS: Emergency Medicine; Emergency Provider Emergency Medicine; PCP Internal Medicine
DX: K92.2 Gastrointestinal hemorrhage, unspecified (principal); D50.0 Iron deficiency anemia secondary to blood loss (chronic); Z87.891 Personal history of nicotine dependence; Z20.822 Contact with and (suspected) exposure to COVID-19
CPT/HCPCS: 36415; 36430; 71045; 80053; 81001; 82550; 82553; 83880; 84484; 85014; 85018; 85025; 85610; 86850; 86870; 86900; 86901; 87635; 93005; 93010; 96374; 96375; 96376; 99285; C9803; P9016; C9113; J1940

== ENCOUNTER 2021-09-08 10:15 | Emergency (ER) | payer MEDICARE, SELFPAY ==
[2021-09-08] VITALS (26 sets, daily range): BP systolic 119–177; BP diastolic 55–108; PULSE 62–98; RESP 12–31; TEMP 36.6–36.9; O2SAT 94–100; BMI 23.5
--- NOTE | 2021-09-08 10:42 | PC.NURSE ---
Pt having generalized weakness,denies pain or SOB.Pt currently being treated for GI bleed.
--- NOTE | 2021-09-08 10:47 | ED.GIBLEED ---
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 She presents today with generalized weakness. She has iron deficiency anemia. She has not noticed melena hematochezia. She has required multiple blood transfusions in the past. She is currently being followed by [facility] in [place]. Recent followups have been canceled due to COVID-19 issues. She is currently trying to reschedule. She presents now with weakness. She denies headache, sore throat, or fever. She has no chest pain or dyspnea. She denies abdominal pain. Her appetite is normal. Oral intake is normal. She has no nausea. Bowel movements have apparently been normal. She is status post TAVR. She is not anticoagulated nor does she take aspirin. Related Data Home Medications Medication Instructions Recorded Confirmed lisinopril 10 mg tablet 20 mg PO QAM #0 08/15/17 08/19/21 ferrous sulfate 325 mg (65 mg 325 mg PO DAILY 11/25/20 08/19/21 iron) tablet (Iron (ferrous sulfate)) rosuvastatin 20 mg tablet 20 mg PO QPM 08/19/21 08/19/21 Allergies Allergy/AdvReac Type Severity Reaction Status Date / Time ezetimibe [EZETIMIBE] Allergy Unknown Verified 09/08/21 10:27 simvastatin [SIMVASTATIN] AdvReac Intermediate MYALGIAS Verified 09/08/21 10:27 Review of Systems Constitutional Constitutional: Denies anorexia, Denies body ache(s), Denies chills, Reports fatigue, Denies headache(s) and Reports weakness Comments: Normal appetite. Eyes Eyes: Denies change in vision ENT Ears, Nose, Mouth, and Throat: Denies dizziness, Denies headache(s), Denies sinus pressure and Denies sore throat Cardiovascular Cardiovascular: Denies chest pain, Denies syncope, Denies rapid heart rate, Denies pedal edema and Denies dyspnea Respiratory Respiratory: Denies chest congestion, Denies cough and Denies dyspnea Gastrointestinal Gastrointestinal: Denies abdominal pain, Denies melena, Denies change in bowel habits and Denies nausea Genitourinary Genitourinary: Denies dysuria and Denies urinary incontinence Musculoskeletal Musculoskeletal: Denies back pain and Denies arthralgias Comments: No lower extremity edema. Integumentary/Breasts Skin/Breast: Denies lesions and Denies rash Neurologic Neurologic: Denies confusion, Denies dizziness, Denies syncope, Denies headache(s) and Reports weakness Psychiatric Psychiatric: Denies anxiety and Denies confusion Endocrine Endocrine: Reports fatigue Hematologic/Lymphatic Hematologic/Lymphatic: Denies easy bruising On Anticoagulants: No Patient History Medical History GI bleed Hyperlipidemia Hypertension Surgical History S/P TAVR (transcatheter aortic valve replacement) Social History Smoking Status: Former smoker Smoking Status: Former smoker alcohol intake frequency: holidays/special occasions only Substance Use Type: does not use Exam Initial Vital Signs Initial Vital Signs: Vital Signs Temperature 98.5 F 09/08/21 10:24 Pulse Rate 80 09/08/21 10:24 Respiratory Rate 25 H 09/08/21 10:24 Blood Pressure 150/65 H 09/08/21 10:24 Pulse Oximetry 99 09/08/21 10:24 Const General: cooperative, healthy appearing, comfortable and well developed HENAR Head: normal to inspection, normocephalic and atraumatic Mouth: oral mucosae normal Eyes Conjunctivae: conjunctivae normal Sclera: sclerae normal Pupils: PERRL EOM: EOM intact bilaterally Neck Neck: No JVD Chest Chest: normal inspection of the chest Resp Auscultation: clear to auscultation bilaterally Cardio Rate: regular rate Rhythm: regular rhythm Heart Sounds: S1 normal and S2 normal GI Palpation: soft, No mass and No tender Auscultation: normal bowel sounds Back/Spine/Pelvis Back: normal to inspection and No back tenderness Skin General: no rashes or lesions noted Neuro General: patient alert, patient awake, patient oriented x3 and no focal motor deficits Extrem General: normal to inspection, no pedal edema and no calf tenderness Psych Mental Status: mental status grossly normal Course Course Course Narrative: the patient's vitals remained stable throughout her ER stay. She was transfused 1 unit of PRBCs. Her H&H improved from 7.8/23.7 to 8.6/25.4. She is hemodynamically stable. She continues to complain of weakness. The anemia needs to be addressed, explained to her not by transfusion at this stage. She is having difficulty arranging necessary follow up, I have asked her to call tomorrow and encourage scheduling. It is noted that she has poor appetite. I have also encouraged her to be sure she is eating more. She refused to eat several times while here in the ER. Orders Ordered: ED Orders 09/08/21 10:26 Complete Blood Count AUTO DIFF Stat Comprehensive Metabolic Panel Stat 09/08/21 10:27 PRBC [Packed Cells] Stat Partial Thromboplastin Time Stat Prothrombin Time INR Stat Type and Screen Stat 09/08/21 10:28 EKG-12 Lead Stat 09/08/21 13:30 Urinalysis and Microscopic Stat 09/08/21 17:03 CBC Auto Diff [Complete Blood Count AUTO DIFF] Stat Vital Signs Vital signs: Vital Signs - 8 hr 09/08/21 11:22 09/08/21 11:30 09/08/21 11:31 Temperature Pulse Rate 74 72 71 Respiratory Rate 31 H 23 25 H Blood Pressure 130/56 L 137/67 Pulse Oximetry 98 100 99 09/08/21 12:00 09/08/21 12:30 09/08/21 13:00 Temperature Pulse Rate 71 69 71 Respiratory Rate 19 16 18 Blood Pressure 122/69 123/70 145/63 H Pulse Oximetry 95 95 96 09/08/21 13:30 09/08/21 13:34 09/08/21 13:59 Temperature 98.3 F Pulse Rate 94 H 80 72 Respiratory Rate 20 Blood Pressure 159/70 H 138/108 H Pulse Oximetry 09/08/21 14:00 09/08/21 14:15 09/08/21 14:21 Temperature 98.1 F Pulse Rate 72 79 79 Respiratory Rate 18 Blood Pressure 138/108 H 127/55 L 127/55 L Pulse Oximetry 100 09/08/21 14:30 09/08/21 14:45 09/08/21 15:00 Temperature 98 F Pulse Rate 77 68 72 Respiratory Rate 18 Blood Pressure 152/68 H 130/71 152/64 H Pulse Oximetry 99 98 99 09/08/21 15:16 09/08/21 15:30 09/08/21 15:31 Temperature Pulse Rate 66 69 70 Respiratory Rate Blood Pressure 133/69 132/60 Pulse Oximetry 94 96 96 09/08/21 15:46 09/08/21 16:00 09/08/21 16:15 Temperature 98.4 F Pulse Rate 70 71 98 H Respiratory Rate 13 23 Blood Pressure 160/66 H 154/66 H 156/70 H Pulse Oximetry 99 98 99 09/08/21 16:30 Temperature Pulse Rate 81 Respiratory Rate 30 H Blood Pressure 119/76 Pulse Oximetry MDM - GI Bleed Lab Data Result diagrams: 09/08/21 17:03 09/08/21 10:26 Labs: Lab Results 09/08/21 09/08/21 09/08/21 Range/Units 10:26 10:26 10:27 WBC 7.2 (4.5-11.0) X10^3/uL RBC 2.86 L (4.0-5.2) X10^6/uL Hgb 7.8 L (12.0-16.0) g/dL Hct 23.7 L (36-46) % MCV 82.7 (80-100) fL MCH 27.3 (26-34) PG MCHC 32.9 (30-36) % RDW 15.2 H (11.6-14.8) % Plt Count 373 (150-400) X10^3/uL Neut % (Auto) 82.7 H (50-75) % Lymph % (Auto) 6.4 L (25-40) % [place] % (Auto) 9.1 (3-14) % Eos % (Auto) 1.0 L (2-4) % Baso % (Auto) 0.8 (0-2) % Neut # (Auto) 6000 (6797-5708) /uL Lymph # (Auto) 500 L (0914-3414) /uL [place] # (Auto) 700 (0-900) /uL Eos # (Auto) 100 (0-450) /uL Baso # (Auto) 100 (0-100) /uL PT 14.4 H (10.1-12.7) SECONDS INR 1.3 (0.9-1.3) APTT 34 D (26.4-36.2) SECONDS Sodium 133 L (137-145) mmol/L Potassium 4.3 (3.4-5.1) mmol/L Chloride 105 (98-107) mmol/L Carbon Dioxide 20 L (22-32) mmol/L BUN 18 H (7-17) mg/dL Creatinine 0.91 (0.52-1.04) mg/dL Estimated GFR 58.8 L (>60) mL/min BUN/Creatinine Ratio 19.8 (6-22) Glucose 109 (80-110) mg/dL Calcium 9.3 (8.4-10.2) mg/dL Total Bilirubin 0.5 (0.2-1.3) mg/dL AST 22 (14-36) IU/L ALT 18 (<35) IU/L Alkaline Phosphatase 82 (38-126) U/L Total Protein 7.5 (6.3-8.2) g/dL Albumin 3.7 (3.5-5.0) g/dL Globulin 3.8 (1.7-4.1) g/dL Albumin/Globulin Ratio 1.0 (1.0-2.8) Urine Color Urine Appearance Urine pH (4.5-8.0) Ur Specific [place] (1.000-1.035) Urine Protein (Negative) Urine Glucose (UA) (Negative) g/dL Urine Ketones (NEGATIVE) Urine Occult Blood (Negative) Urine Nitrate (Negative) Urine Bilirubin (NEGATIVE) Urine Urobilinogen (0.2) E.U./dL Ur Leukocyte Esterase (NEGATIVE) Urine RBC (0-5/HPF) Urine WBC (0-5/HPF) Urine Bacteria (None) Ur Culture Indicated? Blood Type Antibody Screen Antibody Identification Crossmatch 09/08/21 09/08/21 09/08/21 Range/Units 10:27 13:30 17:03 WBC 6.7 (4.5-11.0) X10^3/uL RBC 3.09 L (4.0-5.2) X10^6/uL Hgb 8.6 L (12.0-16.0) g/dL Hct 25.4 L (36-46) % MCV 82.4 (80-100) fL MCH 27.9 (26-34) PG MCHC 33.8 (30-36) % RDW 15.0 H (11.6-14.8) % Plt Count 350 (150-400) X10^3/uL Neut % (Auto) 80.5 H (50-75) % Lymph % (Auto) 8.8 L (25-40) % [place] % (Auto) 8.6 (3-14) % Eos % (Auto) 1.3 L (2-4) % Baso % (Auto) 0.8 (0-2) % Neut # (Auto) 5400 (1593-1144) /uL Lymph # (Auto) 600 L (2038-7543) /uL [place] # (Auto) 600 (0-900) /uL Eos # (Auto) 100 (0-450) /uL Baso # (Auto) 100 (0-100) /uL PT (10.1-12.7) SECONDS INR (0.9-1.3) APTT (26.4-36.2) SECONDS Sodium (137-145) mmol/L Potassium (3.4-5.1) mmol/L Chloride (98-107) mmol/L Carbon Dioxide (22-32) mmol/L BUN (7-17) mg/dL Creatinine (0.52-1.04) mg/dL Estimated GFR (>60) mL/min BUN/Creatinine Ratio (6-22) Glucose (80-110) mg/dL Calcium (8.4-10.2) mg/dL Total Bilirubin (0.2-1.3) mg/dL AST (14-36) IU/L ALT (<35) IU/L Alkaline Phosphatase (38-126) U/L Total Protein (6.3-8.2) g/dL Albumin (3.5-5.0) g/dL Globulin (1.7-4.1) g/dL Albumin/Globulin Ratio (1.0-2.8) Urine Color Yellow Urine Appearance Clear Urine pH 6.5 (4.5-8.0) Ur Specific [place] 1.010 (1.000-1.035) Urine Protein Negative (Negative) Urine Glucose (UA) Negative (Negative) g/dL Urine Ketones Negative (NEGATIVE) Urine Occult Blood Trace-intact (Negative) Urine Nitrate Negative (Negative) Urine Bilirubin Negative (NEGATIVE) Urine Urobilinogen 0.2 (0.2) E.U./dL Ur Leukocyte Esterase Negative (NEGATIVE) Urine RBC 0-1/hpf (0-5/HPF) Urine WBC 0-1/hpf (0-5/HPF) Urine Bacteria Few (2-10) H (None) Ur Culture Indicated? Cult not indicated Blood Type AB Positive Antibody Screen Positive Antibody Identification Anti-M Crossmatch See Detail Discharge Plan Departure Patient Disposition: Home Clinical Impression: Chronic anemia, AVM (arteriovenous malformation) of colon Instructions: Gastrointestinal Bleeding Activity Restrictions/Additional Instructions: Your hematocrit count is currently 25. Continue your current medications. Call your doctor tomorrow to again try to arrange follow-up regarding your GI bleeding. Call your doctor Sunday to recheck her blood counts. Return here if symptoms worsen. Prescriptions: No Action lisinopril 10 MG tablet 20 mg PO QAM Qty: 0 0RF ferrous sulfate [Iron (ferrous sulfate)] 325 mg (65 mg iron) Tablet 325 mg PO DAILY 0RF Rx Instructions: pt takes at lunch rosuvastatin 20 mg tablet 20 mg PO QPM 0RF Referrals: Jonny Love MD [Primary Care Provider] -
[2021-09-08 11:07] LABS: Add Manual Diff / Slide Review NO; Basophils Absolute Auto 100 /uL (0-100); Basophils Percent Auto 0.8 % (0-2); Eosinophils Absolute Auto 100 /uL (0-450); Hematocrit 23.7 % (36-46); Hemoglobin 7.8 g/dL (12.0-16.0); Lymphocytes Absolute Auto 500 /uL (1100-4500); Lymphocytes Percent Auto 6.4 % (25-40); Mean Corpuscular HGB Conc 32.9 % (30-36); Mean Corpuscular Hemoglobin 27.3 PG (26-34); Mean Corpuscular Volume 82.7 fL (80-100); Monocytes Absolute Auto 700 /uL (0-900); Monocytes Percent Auto 9.1 % (3-14); Neutrophils Absolute Auto 6000 /uL (1500-7000); Neutrophils Percent Auto 82.7 % (50-75); Platelet Count 373 X10^3/uL (150-400); Red Blood Cell Count 2.86 X10^6/uL (4.0-5.2); Red Cell Distribution Width 15.2 % (11.6-14.8); White Blood Cell Count 7.2 X10^3/uL (4.5-11.0)
[2021-09-08 11:27] LABS: INR 1.3 (0.9-1.3); Prothrombin Time 14.4 SECONDS (10.1-12.7)
[2021-09-08 11:28] LABS: Alanine Aminotransferase 18 IU/L (<35); Albumin 3.7 g/dL (3.5-5.0); Alkaline Phosphatase 82 U/L (38-126); Aspartate Aminotransferase 22 IU/L (14-36); BUN Creatinine Ratio 19.8 (6-22); Bilirubin Total 0.5 mg/dL (0.2-1.3); Blood Urea Nitrogen 18 mg/dL (7-17); Calcium 9.3 mg/dL (8.4-10.2); Carbon Dioxide 20 mmol/L (22-32); Chloride 105 mmol/L (98-107); Estimated Glomerular Filt Rate 58.8 mL/min (>60); Globulin 3.8 g/dL (1.7-4.1); Glucose 109 mg/dL (80-110); HEMOLYSIS < 15 (0-50); Potassium 4.3 mmol/L (3.4-5.1); Sodium 133 mmol/L (137-145); Total Protein 7.5 g/dL (6.3-8.2)
[2021-09-08 11:30] LABS: PTT Partial Thromboplastin Tim 34 SECONDS (26.4-36.2)
--- NOTE | 2021-09-08 12:18 | PC.NURSE ---
pt reports it feels the same when she needed blood before. pt is pale. denies sob, cp
[2021-09-08 14:19] LABS: Appearance Urine UA CLEAR; Bilirubin Urine UA NEGATIVE (NEGATIVE); Color Urine UA YELLOW; Glucose Urine UA NEGATIVE (Negative); Ketones Urine UA NEGATIVE (NEGATIVE); Leukocyte Esterase Urine UA NEGATIVE (NEGATIVE); Nitrite Urine UA NEGATIVE (Negative); Occult Blood Urine UA TRACE-INTACT (Negative); Protein Urine UA NEGATIVE (Negative); Urobilinogen Urine UA 0.2 E.U./dL (0.2)
[2021-09-08 14:37] LABS: pH Urine UA 6.5 (4.5-8.0)
[2021-09-08 14:38] LABS: Bacteria Urine Few (2-10); Culture Indicated Urine Cult Not Indicated; RBC Urine 0-1/HPF (0-5/HPF); WBC Urine 0-1/HPF (0-5/HPF)
[2021-09-08 17:08] LABS: Add Manual Diff / Slide Review NO; Basophils Absolute Auto 100 /uL (0-100); Basophils Percent Auto 0.8 % (0-2); Eosinophils Absolute Auto 100 /uL (0-450); Eosinophils Percent Auto 1.3 % (2-4); Hematocrit 25.4 % (36-46); Hemoglobin 8.6 g/dL (12.0-16.0); Lymphocytes Absolute Auto 600 /uL (1100-4500); Lymphocytes Percent Auto 8.8 % (25-40); Mean Corpuscular HGB Conc 33.8 % (30-36); Mean Corpuscular Hemoglobin 27.9 PG (26-34); Mean Corpuscular Volume 82.4 fL (80-100); Monocytes Absolute Auto 600 /uL (0-900); Monocytes Percent Auto 8.6 % (3-14); Neutrophils Absolute Auto 5400 /uL (1500-7000); Neutrophils Percent Auto 80.5 % (50-75); Platelet Count 350 X10^3/uL (150-400); Red Blood Cell Count 3.09 X10^6/uL (4.0-5.2); White Blood Cell Count 6.7 X10^3/uL (4.5-11.0)
[2021-09-09 15:01] LABS: Cholesterol 123 mg/dL (140-199); HDL Cholesterol 49 mg/dL (40-60); LDL Cholesterol Calculated 53 mg/dL (<100); Triglycerides 107 mg/dL (35-150)
== END 2021-09-08 22:00 | disposition home or self-care (01) ==
PROVIDERS: Emergency Provider Emergency Medicine; PCP Internal Medicine
DX: D50.9 Iron deficiency anemia, unspecified (principal); Q27.33 Arteriovenous malformation of digestive system vessel; Z87.891 Personal history of nicotine dependence; I10 Essential (primary) hypertension
CPT/HCPCS: 36415; 36430; 80053; 80061; 81001; 85025; 85610; 85730; 86850; 86870; 86900; 86901; 93005; 93010; 99284; P9016

== ENCOUNTER → 2021-09-15 11:13 | Outpatient (CLI) | payer MEDICARE, SELFPAY ==
[2021-09-15 12:16] LABS: Add Manual Diff / Slide Review NO; Basophils Absolute Auto 0 /uL (0-100); Basophils Percent Auto 0.5 % (0-2); Eosinophils Absolute Auto 100 /uL (0-450); Eosinophils Percent Auto 1.8 % (2-4); Hemoglobin 8.7 g/dL (12.0-16.0); Lymphocytes Absolute Auto 600 /uL (1100-4500); Lymphocytes Percent Auto 8.2 % (25-40); Mean Corpuscular HGB Conc 33.4 % (30-36); Mean Corpuscular Hemoglobin 27.6 PG (26-34); Mean Corpuscular Volume 82.8 fL (80-100); Monocytes Absolute Auto 700 /uL (0-900); Neutrophils Absolute Auto 5800 /uL (1500-7000); Neutrophils Percent Auto 79.5 % (50-75); Platelet Count 363 X10^3/uL (150-400); Red Blood Cell Count 3.14 X10^6/uL (4.0-5.2); Red Cell Distribution Width 15.3 % (11.6-14.8); White Blood Cell Count 7.4 X10^3/uL (4.5-11.0)
== END ==
PROVIDERS: PCP Internal Medicine; Referring Provider Internal Medicine Interventional Cardiology; Visit Provider Internal Medicine Interventional Cardiology
DX: Z87.19 Personal history of other diseases of the digestive system (principal); Z95.2 Presence of prosthetic heart valve
CPT/HCPCS: 36415; 85025

== ENCOUNTER 2021-10-10 11:25 | Observation (INO) | payer MEDICARE, SELFPAY ==
[2021-10-10] VITALS (22 sets, daily range): BP systolic 97–159; BP diastolic 49–90; PULSE 60–82; RESP 16–18; TEMP 36.2–36.7; O2SAT 95–100; BMI 23.5
[2021-10-10 13:20] LABS: Add Manual Diff / Slide Review NO; Basophils Absolute Auto 100 /uL (0-100); Basophils Percent Auto 1.3 % (0-2); Eosinophils Absolute Auto 100 /uL (0-450); Eosinophils Percent Auto 2.4 % (2-4); Hematocrit 21.2 % (36-46); Hemoglobin 7.1 g/dL (12.0-16.0); Lymphocytes Absolute Auto 700 /uL (1100-4500); Lymphocytes Percent Auto 12.1 % (25-40); Mean Corpuscular HGB Conc 33.4 % (30-36); Mean Corpuscular Hemoglobin 28.3 PG (26-34); Mean Corpuscular Volume 84.9 fL (80-100); Monocytes Absolute Auto 500 /uL (0-900); Monocytes Percent Auto 10.1 % (3-14); Neutrophils Absolute Auto 4000 /uL (1500-7000); Neutrophils Percent Auto 74.1 % (50-75); Platelet Count 376 X10^3/uL (150-400); Red Blood Cell Count 2.49 X10^6/uL (4.0-5.2); Red Cell Distribution Width 17.4 % (11.6-14.8); White Blood Cell Count 5.4 X10^3/uL (4.5-11.0)
[2021-10-10 13:34] LABS: Alanine Aminotransferase 13 IU/L (<35); Albumin 3.9 g/dL (3.5-5.0); Albumin Globulin Ratio 1.1 (1.0-2.8); Alkaline Phosphatase 110 U/L (38-126); Aspartate Aminotransferase 21 IU/L (14-36); BUN Creatinine Ratio 26.7 (6-22); Bilirubin Total 0.4 mg/dL (0.2-1.3); Blood Urea Nitrogen 24 mg/dL (7-17); Calcium 9.5 mg/dL (8.4-10.2); Carbon Dioxide 17 mmol/L (22-32); Chloride 107 mmol/L (98-107); Estimated Glomerular Filt Rate 59.5 mL/min (>60); Globulin 3.6 g/dL (1.7-4.1); Glucose 97 mg/dL (80-110); HEMOLYSIS < 15 (0-50); Potassium 4.7 mmol/L (3.4-5.1); Sodium 132 mmol/L (137-145); Total Protein 7.5 g/dL (6.3-8.2)
--- NOTE | 2021-10-10 16:23 | ED_ITS ---
HPI - Weakness <Mami Tracy PA-C - Last Filed: 10/10/21 19:23> General Chief complaint: Weakness Stated complaint: needs a blood transfusion Time Seen by Provider: 10/10/21 12:43 Source: patient Mode of arrival: Ambulatory History of Present Illness HPI Narrative: 86-year-old female with past medical history anemia, GI bleed presents to the ED with worsening weakness and fatigue. Patient is being closely followed by GI for a GI bleed, was last seen by her GI 5 days ago for a Pill Cam test Patient is followed by GI doctor DR. Mariela Devi at [facility]. Patient denies fever, chills, chest pain, shortness of breath, nausea, vomiting, abdominal pain, flank pain, dysuria, melena, hematochezia, diarrhea, constipation, lightheadedness, dizziness, syncope. Patient states that she has been transfused several times for this GI bleed and that they were still trying to diagnose the source of the bleed with a PillCam. Related Data Home Medications Medication Instructions Recorded Confirmed lisinopril 10 mg tablet 20 mg PO QAM #0 08/15/17 10/10/21 ferrous sulfate 325 mg (65 mg 325 mg PO DAILY 11/25/20 10/10/21 iron) tablet (Iron (ferrous sulfate)) rosuvastatin 20 mg tablet 20 mg PO QPM 08/19/21 10/10/21 pantoprazole 40 mg tablet,delayed 40 mg PO BID 10/10/21 10/10/21 release Allergies Allergy/AdvReac Type Severity Reaction Status Date / Time ezetimibe [EZETIMIBE] Allergy Unknown Verified 09/08/21 10:27 simvastatin [SIMVASTATIN] AdvReac Intermediate MYALGIAS Verified 09/08/21 10:27 Review of Systems <Mami Tracy PA-C - Last Filed: 10/10/21 19:23> Review of Systems ROS Unobtainable: All systems reviewed & are unremarkable except as noted in HPI and below Constitutional Constitutional: Denies chills, Reports fatigue, Denies fever(s), Denies frequent falls, Reports lethargy and Reports weakness Eyes Eyes: Denies change in vision, Denies eye discharge, Denies irritation and Denies loss of vision ENT Ears, Nose, Mouth, and Throat: Denies change in voice, Denies dizziness, Denies neck pain, Denies sore throat and Denies throat swelling Cardiovascular Cardiovascular: Denies chest pain, Denies irregular heart rhythm, Denies lightheadedness, Denies palpitations, Denies dyspnea, Denies dyspnea on exertion and Denies orthopnea Respiratory Respiratory: Denies cough, Denies dyspnea, Denies dyspnea on exertion and Denies wheezing Gastrointestinal Gastrointestinal: Denies abdominal pain, Denies change in bowel habits, Denies diarrhea, Denies nausea and Denies vomiting Genitourinary Genitourinary: Denies hematuria, Denies flank pain, Denies urinary incontinence and Denies urinary urgency Musculoskeletal Musculoskeletal: Denies back pain, Denies muscle weakness, Denies neck pain, Denies numbness and Denies tingling Integumentary/Breasts Skin/Breast: Denies pruritus, Denies erythema, Denies rash and Denies wounds Neurologic Neurologic: Denies behavioral changes, Denies confusion, Denies dizziness, Denies frequent falls, Denies loss of vision, Denies numbness, Denies tingling and Reports weakness Psychiatric Psychiatric: Denies anxiety, Denies behavioral changes, Denies confusion, Denies depression, Denies homicidal ideation and Denies suicidal ideation Endocrine Endocrine: Reports fatigue, Denies flushing and Denies palpitations Hematologic/Lymphatic Hematologic/Lymphatic: Denies easy bruising Allergic/Immunologic Allergic/Immunologic: Denies urticaria, Denies throat swelling and Denies wheezing Patient History <Mami Tracy PA-C - Last Filed: 10/10/21 19:23> Medical History (Updated 10/11/21 @ 01:53 by AUDRA Kaplan) 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 Gastritis GI bleed History of colon cancer, stage II History of complete heart block History of Helicobacter pylori infection Hyperlipidemia Hypertension LVH (left ventricular hypertrophy) due to hypertensive disease Pacemaker PUD (peptic ulcer disease) Recurrent gastrointestinal hemorrhage Severe aortic stenosis Surgical History (Updated 10/11/21 @ 01:53 by AUDRA Kaplan) History of aortic valve replacement History of hemicolectomy S/P TAVR (transcatheter aortic valve replacement) Family History Other Adopted Social History household members: none Smoking Status: Former smoker alcohol intake: current Smoking Status: Former smoker alcohol intake frequency: holidays/special occasions only Substance Use Type: does not use Exam <Mami Tracy PA-C - Last Filed: 10/10/21 19:23> Initial Vital Signs Initial Vital Signs: Vital Signs Temperature 97.1 F L 10/10/21 11:49 Pulse Rate 60 10/10/21 11:49 Respiratory Rate 16 10/10/21 11:49 Blood Pressure 140/58 L 10/10/21 11:49 Pulse Oximetry 97 10/10/21 11:49 Const General: cooperative, healthy appearing and comfortable HENND Head: normal to inspection Eyes General: appearance normal, both eyes and all related structures Neck Neck: normal visual inspection Chest Chest: normal inspection of the chest Resp Effort & Inspection: normal respiratory effort Auscultation: clear to auscultation bilaterally Cardio Rate: regular rate Rhythm: regular rhythm GI Other: Abdomen is soft, non distended, nontender to palpation. No CVA tenderness. General: No CVA tenderness Skin General: no rashes or lesions noted Neuro General: patient alert, patient awake and patient oriented x3 Psych Appearance: grossly normal <Jenniffer An DO - Last Filed: 10/11/21 07:09> Initial Vital Signs Initial Vital Signs: Vital Signs Temperature 97.1 F L 10/10/21 11:49 Pulse Rate 60 10/10/21 11:49 Respiratory Rate 16 10/10/21 11:49 Blood Pressure 140/58 L 10/10/21 11:49 Pulse Oximetry 97 10/10/21 11:49 Course <Mami Tracy PA-C - Last Filed: 10/10/21 19:23> Orders Ordered: Acetaminophen (Acetaminophen 325 Mg Tablet) 650 mg PO Q6HR PRN PRN Reason: Fever/Mild Pain (1-3) Dextrose (Dextrose 50 % In Water 25 Gm/50 Ml Syringe) 25 gm IV PRN PRN PRN Reason: Hypoglycemia Naloxone HCl (Naloxone 0.4 Mg/Ml Vial) 0.2 mg IV Q2MIN PRN PRN Reason: Opiate Reversal Ondansetron HCl (Ondansetron 4 Mg/2 Ml Inj) 4 mg IV Q8HR PRN PRN Reason: Nausea And Vomiting Pantoprazole Sodium (Pantoprazole 40 Mg Vial) 40 mg IV DAILY [facility] Last Admin: 10/10/21 23:42 Dose: 40 mg Documented by: ALEXX Discontinued Medications Insulin Human Lispro (Insulin Lispro 100 Unit/Ml 3ml Vial) 0 unit SUBCUT [facility]; Protocol Stop: 10/11/21 00:18 Last Admin: 10/10/21 23:43 Dose: Not Given Documented by: ALEXX Vital Signs Vital signs: Vital Signs - 8 hr 10/10/21 11:49 10/10/21 14:50 10/10/21 15:00 Temperature 97.1 F L Pulse Rate 60 62 Respiratory Rate 16 Blood Pressure 140/58 L 138/56 L Pulse Oximetry 97 98 10/10/21 15:01 10/10/21 15:30 10/10/21 15:31 Temperature Pulse Rate 63 67 69 Respiratory Rate Blood Pressure 109/51 L 144/59 H Pulse Oximetry 99 100 95 10/10/21 16:00 Temperature Pulse Rate 75 Respiratory Rate Blood Pressure Pulse Oximetry 99 <Jenniffer An, - Last Filed: 10/11/21 07:09> Orders Ordered: Acetaminophen (Acetaminophen 325 Mg Tablet) 650 mg PO Q6HR PRN PRN Reason: Fever/Mild Pain (1-3) Dextrose (Dextrose 50 % In Water 25 Gm/50 Ml Syringe) 25 gm IV PRN PRN PRN Reason: Hypoglycemia Naloxone HCl (Naloxone 0.4 Mg/Ml Vial) 0.2 mg IV Q2MIN PRN PRN Reason: Opiate Reversal Ondansetron HCl (Ondansetron 4 Mg/2 Ml Inj) 4 mg IV Q8HR PRN PRN Reason: Nausea And Vomiting Pantoprazole Sodium (Pantoprazole 40 Mg Vial) 40 mg IV DAILY [facility] Last Admin: 10/10/21 23:42 Dose: 40 mg Documented by: ALEXX Discontinued Medications Insulin Human Lispro (Insulin Lispro 100 Unit/Ml 3ml Vial) 0 unit SUBCUT [facility]; Protocol Stop: 10/11/21 00:18 Last Admin: 10/10/21 23:43 Dose: Not Given Documented by: ALEXX Vital Signs Vital signs: Vital Signs - 8 hr 10/10/21 11:49 10/10/21 14:50 10/10/21 15:00 Temperature 97.1 F L Pulse Rate 60 62 Respiratory Rate 16 Blood Pressure 140/58 L 138/56 L Pulse Oximetry 97 98 10/10/21 15:01 10/10/21 15:30 10/10/21 15:31 Temperature Pulse Rate 63 67 69 Respiratory Rate Blood Pressure 109/51 L 144/59 H Pulse Oximetry 99 100 95 10/10/21 16:00 Temperature Pulse Rate 75 Respiratory Rate Blood Pressure Pulse Oximetry 99 MDM - Weakness <Mami Tracy PA-C - Last Filed: 10/10/21 19:23> Lab Data Lab results narrative: Hemoglobin 7.1 Result diagrams: 10/11/21 03:10 10/11/21 03:10 Labs: Lab Results 10/10/21 10/10/21 10/10/21 Range/Units 13:02 13:02 13:02 WBC 5.4 (4.5-11.0) X10^3/uL RBC 2.49 L (4.0-5.2) X10^6/uL Hgb 7.1 L (12.0-16.0) g/dL Hct 21.2 L (36-46) % MCV 84.9 (80-100) fL MCH 28.3 (26-34) PG MCHC 33.4 (30-36) % RDW 17.4 H (11.6-14.8) % Plt Count 376 (150-400) X10^3/uL Neut % (Auto) 74.1 (50-75) % Lymph % (Auto) 12.1 L (25-40) % [place] % (Auto) 10.1 (3-14) % Eos % (Auto) 2.4 (2-4) % Baso % (Auto) 1.3 (0-2) % Neut # (Auto) 4000 (7858-8999) /uL Lymph # (Auto) 700 L (0293-5091) /uL [place] # (Auto) 500 (0-900) /uL Eos # (Auto) 100 (0-450) /uL Baso # (Auto) 100 (0-100) /uL Sodium 132 L (137-145) mmol/L Potassium 4.7 (3.4-5.1) mmol/L Chloride 107 (98-107) mmol/L Carbon Dioxide 17 L (22-32) mmol/L BUN 24 H (7-17) mg/dL Creatinine 0.90 (0.52-1.04) mg/dL Estimated GFR 59.5 L (>60) mL/min BUN/Creatinine Ratio 26.7 H (6-22) Glucose 97 (80-110) mg/dL Hemoglobin A1c (4.0-6.0) % Calcium 9.5 (8.4-10.2) mg/dL Total Bilirubin 0.4 (0.2-1.3) mg/dL AST 21 (14-36) IU/L ALT 13 (<35) IU/L Alkaline Phosphatase 110 (38-126) U/L Total Protein 7.5 (6.3-8.2) g/dL Albumin 3.9 (3.5-5.0) g/dL Globulin 3.6 (1.7-4.1) g/dL Albumin/Globulin Ratio 1.1 (1.0-2.8) Blood Type AB Positive Antibody Screen Positive Antibody Identification Anti-M Crossmatch See Detail 10/10/21 Range/Units 13:02 WBC (4.5-11.0) X10^3/uL RBC (4.0-5.2) X10^6/uL Hgb (12.0-16.0) g/dL Hct (36-46) % MCV (80-100) fL MCH (26-34) PG MCHC (30-36) % RDW (11.6-14.8) % Plt Count (150-400) X10^3/uL Neut % (Auto) (50-75) % Lymph % (Auto) (25-40) % [place] % (Auto) (3-14) % Eos % (Auto) (2-4) % Baso % (Auto) (0-2) % Neut # (Auto) (2724-3122) /uL Lymph # (Auto) (8337-1571) /uL [place] # (Auto) (0-900) /uL Eos # (Auto) (0-450) /uL Baso # (Auto) (0-100) /uL Sodium (137-145) mmol/L Potassium (3.4-5.1) mmol/L Chloride (98-107) mmol/L Carbon Dioxide (22-32) mmol/L BUN (7-17) mg/dL Creatinine (0.52-1.04) mg/dL Estimated GFR (>60) mL/min BUN/Creatinine Ratio (6-22) Glucose (80-110) mg/dL Hemoglobin A1c 5.3 (4.0-6.0) % Calcium (8.4-10.2) mg/dL Total Bilirubin (0.2-1.3) mg/dL AST (14-36) IU/L ALT (<35) IU/L Alkaline Phosphatase (38-126) U/L Total Protein (6.3-8.2) g/dL Albumin (3.5-5.0) g/dL Globulin (1.7-4.1) g/dL Albumin/Globulin Ratio (1.0-2.8) Blood Type Antibody Screen Antibody Identification Crossmatch MDM Narrative Medical decision making narrative: 86-year-old female with past medical history anemia, GI bleed presents to the ED with worsening weakness and fatigue. Concern for GI bleed, anemia. Will order labs, type and screen, prep for transfusion. Hemoglobin 7.1 down from 8.2 on . Will transfuse with 2 units of packed red blood cells. Will consult with patient's GI specialist to discuss dispo planning. Dr. Jacobsen from [facility] was contacted at [phone] regarding this patient's dispo. He recommends transfusion and discharge home and patient to call him tomorrow for follow-up appointment. Given that patient has had multiple prior transfusions, there is delay in getting the right matched blood. Patient is going to be admitted for observation while she waits for the transfusion. Hospitalist Nuzhat Galindo is aware and accepts the patient. Patient is stable throughout the ED stay. <Jenniffer An, DO - Last Filed: 10/11/21 07:09> Lab Data Labs: Lab Results 10/10/21 10/10/21 10/10/21 Range/Units 13:02 13:02 13:02 WBC 5.4 (4.5-11.0) X10^3/uL RBC 2.49 L (4.0-5.2) X10^6/uL Hgb 7.1 L (12.0-16.0) g/dL Hct 21.2 L (36-46) % MCV 84.9 (80-100) fL MCH 28.3 (26-34) PG MCHC 33.4 (30-36) % RDW 17.4 H (11.6-14.8) % Plt Count 376 (150-400) X10^3/uL Neut % (Auto) 74.1 (50-75) % Lymph % (Auto) 12.1 L (25-40) % [place] % (Auto) 10.1 (3-14) % Eos % (Auto) 2.4 (2-4) % Baso % (Auto) 1.3 (0-2) % Neut # (Auto) 4000 (0553-6210) /uL Lymph # (Auto) 700 L (3281-8562) /uL [place] # (Auto) 500 (0-900) /uL Eos # (Auto) 100 (0-450) /uL Baso # (Auto) 100 (0-100) /uL Sodium 132 L (137-145) mmol/L Potassium 4.7 (3.4-5.1) mmol/L Chloride 107 (98-107) mmol/L Carbon Dioxide 17 L (22-32) mmol/L BUN 24 H (7-17) mg/dL Creatinine 0.90 (0.52-1.04) mg/dL Estimated GFR 59.5 L (>60) mL/min BUN/Creatinine Ratio 26.7 H (6-22) Glucose 97 (80-110) mg/dL Hemoglobin A1c (4.0-6.0) % Calcium 9.5 (8.4-10.2) mg/dL Total Bilirubin 0.4 (0.2-1.3) mg/dL AST 21 (14-36) IU/L ALT 13 (<35) IU/L Alkaline Phosphatase 110 (38-126) U/L Total Protein 7.5 (6.3-8.2) g/dL Albumin 3.9 (3.5-5.0) g/dL Globulin 3.6 (1.7-4.1) g/dL Albumin/Globulin Ratio 1.1 (1.0-2.8) Blood Type AB Positive Antibody Screen Positive Antibody Identification Anti-M Crossmatch See Detail 10/10/21 Range/Units 13:02 WBC (4.5-11.0) X10^3/uL RBC (4.0-5.2) X10^6/uL Hgb (12.0-16.0) g/dL Hct (36-46) % MCV (80-100) fL MCH (26-34) PG MCHC (30-36) % RDW (11.6-14.8) % Plt Count (150-400) X10^3/uL Neut % (Auto) (50-75) % Lymph % (Auto) (25-40) % [place] % (Auto) (3-14) % Eos % (Auto) (2-4) % Baso % (Auto) (0-2) % Neut # (Auto) (2995-2333) /uL Lymph # (Auto) (0750-7070) /uL [place] # (Auto) (0-900) /uL Eos # (Auto) (0-450) /uL Baso # (Auto) (0-100) /uL Sodium (137-145) mmol/L Potassium (3.4-5.1) mmol/L Chloride (98-107) mmol/L Carbon Dioxide (22-32) mmol/L BUN (7-17) mg/dL Creatinine (0.52-1.04) mg/dL Estimated GFR (>60) mL/min BUN/Creatinine Ratio (6-22) Glucose (80-110) mg/dL Hemoglobin A1c 5.3 (4.0-6.0) % Calcium (8.4-10.2) mg/dL Total Bilirubin (0.2-1.3) mg/dL AST (14-36) IU/L ALT (<35) IU/L Alkaline Phosphatase (38-126) U/L Total Protein (6.3-8.2) g/dL Albumin (3.5-5.0) g/dL Globulin (1.7-4.1) g/dL Albumin/Globulin Ratio (1.0-2.8) Blood Type Antibody Screen Antibody Identification Crossmatch Discharge Plan Departure Patient Disposition: Admitted as Observation Clinical Impression: GI bleed Admit Date/Time: 10/10/21 19:19 Admit Provider: Krupa Galindo <Jenniffer An DO - Last Filed: 10/11/21 07:09> Cosign ED Attending Cosignature Attestation: I was immediately available in the department for consultation. Documentation has been reviewed. Case was discussed. There is difficulty finding compatible blood with the patient secondary to multiple past blood transfusions. Plan to admit patient while awaiting
[2021-10-10 20:04] LABS: COVID19 -Nasal RAPID Negative (Negative)
--- NOTE | 2021-10-10 20:35 | PC.NURSE ---
Blood warmed had to set up
--- NOTE | 2021-10-10 20:51 | PC.NURSE ---
No s/s of reaction
[2021-10-10 20:58] LABS: Magnesium 2.3 mg/dL (1.6-2.3)
[2021-10-10 21:07] LABS: NT-proBNP (BNP-Adult 18+) 1100 pg/mL (<450)
[2021-10-10 21:09] LABS: Hemoglobin A1C% w Est Avg Glu 5.3 % (4.0-6.0)
[2021-10-10] MEDS: PANTOPRAZOLE 40 MG VIAL IV (23:42)
[2021-10-11] VITALS (7 sets, daily range): BP systolic 129–147; BP diastolic 42–58; PULSE 66–69; RESP 16–18; TEMP 36.4–36.6; O2SAT 96–100
--- NOTE | 2021-10-11 01:40 | P.HP_ITS ---
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 Patient is being closely followed by GI doctor DR. Mariela Devi at [facility].? Patient denies fever, chills, chest pain, palpitation, shortness of breath, nausea, vomiting, abdominal pain, flank pain, dysuria, melena, hematoch ezia, diarrhea, constipation, lightheadedness, dizziness, syncope.? Patient states that she has been transfused several times for this GI bleed and that they were still trying to diagnose the source of the bleed with a PillCam. Last Pillcam 5 days ago. Patient denies any recent illness injury or trauma. Patient's vitals upon admit were stable temp 97.1?, BP 97/49, HR 81, R 16, O2 saturation 100% on room air. Patient's hemoglobin 7.1, hematocrit 21.2, mild hyponatremia sodium 132, BUN 24, bicarb 17, GFR 59.5. Patient is stable and in no distress, denies any active bleeding. ED did consult with the patient's on- call GI from [facility] and was advised to transfuse pat ient, and she will follow up outpatient sorto with them. Patient admitted for acute blood loss secondary to GI bleeding from AVM for the transfusion of blood. 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 Gastritis GI bleed History of colon cancer, stage II History of complete heart block History of Helicobacter pylori infection Hyperlipidemia Hypertension LVH (left ventricular hypertrophy) due to hypertensive disease Pacemaker PUD (peptic ulcer disease) Recurrent gastrointestinal hemorrhage Severe aortic stenosis Surgical History (Updated 10/11/21 @ 01:53 by AUDRA Kaplan) History of aortic valve replacement History of hemicolectomy S/P TAVR (transcatheter aortic valve replacement) Family & Social History Family History Other Adopted Social History: household members none - Prior Living Arrangements House Safety & Behavioral: Feels Safe in Current Yes Environment Been Physically Hurt or No Threatened By a Person Suicidal Ideation Description None Suicide Plan Description No Plan Tobacco & Substance use: Smoking Status Former smoker alcohol intake current alcohol intake frequency a few times a month Substance Use Type does not use Meds Home Medications and Allergies Home Medications Medication Instructions Recorded Confirmed Type lisinopril 10 mg tablet 20 mg PO QAM #0 08/15/17 10/10/21 History ferrous sulfate 325 mg (65 mg 325 mg PO DAILY 11/25/20 10/10/21 History iron) tablet (Iron (ferrous sulfate)) rosuvastatin 20 mg tablet 20 mg PO QPM 08/19/21 10/10/21 History pantoprazole 40 mg tablet,delayed 40 mg PO BID 10/10/21 10/10/21 History release Allergies Allergy/AdvReac Type Severity Reaction Status Date / Time ezetimibe [EZETIMIBE] Allergy Unknown Verified 09/08/21 10:27 simvastatin [SIMVASTATIN] AdvReac Intermediate MYALGIAS Verified 09/08/21 10:27 Review of Systems Review of Systems Narrative: All 12 point systems reviewed with the patient and are negative except otherwise documented. Exam Vital Signs (past 8 hours): - 10/10/21 19:06 10/10/21 19:30 10/10/21 19:43 Temperature Pulse Rate 77 70 81 Respiratory Rate Blood Pressure 97/49 L Pulse Oximetry 99 99 100 10/10/21 20:00 10/10/21 20:16 10/10/21 20:29 Temperature 97.6 F Pulse Rate 82 71 69 Respiratory Rate 18 Blood Pressure 159/68 H 136/90 136/90 Pulse Oximetry 100 97 10/10/21 20:30 10/10/21 20:45 10/10/21 20:50 Temperature 97.7 F 97.7 F Pulse Rate 69 68 67 Respiratory Rate 18 Blood Pressure 131/83 140/59 L 140/59 L Pulse Oximetry 100 100 10/10/21 21:10 10/10/21 23:27 10/10/21 23:28 Temperature 98.0 F 97.7 F 97.9 F Pulse Rate 76 70 70 Respiratory Rate 18 18 18 Blood Pressure 130/69 136/82 136/82 Pulse Oximetry 99 97 10/10/21 23:35 10/10/21 23:50 10/10/21 23:58 Temperature 97.7 F 97.2 F L 97.2 F L Pulse Rate 70 68 68 Respiratory Rate 18 18 18 Blood Pressure 136/82 127/59 L 127/55 L Pulse Oximetry 100 10/11/21 00:15 10/11/21 00:45 Temperature Pulse Rate 68 Respiratory Rate 18 Blood Pressure Pulse Oximetry 100 100 Oxygen Delivery Method Room Air Oxygen Flow Rate 0 Narrative Exam Narrative: General: Patient is a chronically ill appearing, pale, female in no distress at this time. HEENT: Normocephalic, atraumatic, extraocular muscles intact, oral pharynx is clear and mucous membranes are moist. Neck is supple and symmetric, trachea is midline, no adenopathy, no thyroid enlargement, nontender, no masses palpated. Negative for JVD Chest: Normal AP diameter and contour without kyphoscoliosis, no nasal flaring, retractions, or tachypneic labored Lungs: Auscultation of all lung lamas are clear without adventitious sounds, wheezes, rhonchi, or rales. Cardio: regular rate and rhythm, positive whooshing +3 murmur, no carotid bruit, no cardiac pulsations present. Abdomen: Soft nontender, negative for organomegaly, or masses. Bowel sounds are present in all 4 quadrants without guarding or rebound, no CVA tenderness. Musculoskeletal: Muscle strength and tone are equal within normal limits, no deformity, crepitus, effusions, cyanosis, clubbing or edema present. Full range of motion intact radial and pedal pulses are normal. Skin: Warm dry and intact without rashes, ulcerations or petechiae. Neuro: Alert and orientated x3, strength is +5/5 in all extremities, sensation to touch intact, no gross deficits noted of cranial nerves. Psych: Patient has a well-kept appearance, appropriate affect, mental status attitude thought context and judgment are appropriate for age. Objective Labs Result Diagrams: 10/10/21 13:02 10/10/21 13:02 Labs: Laboratory Results - last 24 hr 10/10/21 10/10/21 10/10/21 13:02 13:02 13:02 WBC 5.4 RBC 2.49 L Hgb 7.1 L Hct 21.2 L MCV 84.9 MCH 28.3 MCHC 33.4 RDW 17.4 H Plt Count 376 Neut % (Auto) 74.1 Lymph % (Auto) 12.1 L [place] % (Auto) 10.1 Eos % (Auto) 2.4 Baso % (Auto) 1.3 Neut # (Auto) 4000 Lymph # (Auto) 700 L [place] # (Auto) 500 Eos # (Auto) 100 Baso # (Auto) 100 Sodium 132 L Potassium 4.7 Chloride 107 Carbon Dioxide 17 L BUN 24 H Creatinine 0.90 Estimated GFR 59.5 L BUN/Creatinine Ratio 26.7 H Glucose 97 Hemoglobin A1c Calcium 9.5 Magnesium Total Bilirubin 0.4 AST 21 ALT 13 Alkaline Phosphatase 110 NT-Pro-B Natriuret Pep Total Protein 7.5 Albumin 3.9 Globulin 3.6 Albumin/Globulin Ratio 1.1 SARS-CoV-2 (PCR) Blood Type AB Positive Antibody Screen Positive Antibody Identification Anti-M Crossmatch See Detail 10/10/21 10/10/21 10/10/21 13:02 19:41 20:15 WBC RBC Hgb Hct MCV MCH MCHC RDW Plt Count Neut % (Auto) Lymph % (Auto) [place] % (Auto) Eos % (Auto) Baso % (Auto) Neut # (Auto) Lymph # (Auto) [place] # (Auto) Eos # (Auto) Baso # (Auto) Sodium Potassium Chloride Carbon Dioxide BUN Creatinine Estimated GFR BUN/Creatinine Ratio Glucose Hemoglobin A1c 5.3 Calcium Magnesium 2.3 Total Bilirubin AST ALT Alkaline Phosphatase NT-Pro-B Natriuret Pep Total Protein Albumin Globulin Albumin/Globulin Ratio SARS-CoV-2 (PCR) Negative Blood Type Antibody Screen Antibody Identification Crossmatch 10/10/21 20:20 WBC RBC Hgb Hct MCV MCH MCHC RDW Plt Count Neut % (Auto) Lymph % (Auto) [place] % (Auto) Eos % (Auto) Baso % (Auto) Neut # (Auto) Lymph # (Auto) [place] # (Auto) Eos # (Auto) Baso # (Auto) Sodium Potassium Chloride Carbon Dioxide BUN Creatinine Estimated GFR BUN/Creatinine Ratio Glucose Hemoglobin A1c Calcium Magnesium Total Bilirubin AST ALT Alkaline Phosphatase NT-Pro-B Natriuret Pep 1100 H Total Protein Albumin Globulin Albumin/Globulin Ratio SARS-CoV-2 (PCR) Blood Type Antibody Screen Antibody Identification Crossmatch Assessment & Plan Assessment & Plan narrative: Panfilo Calixto is a delightful 86-year-old female with past medical history of 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 Patient is being closely followed by GI doctor DR. Mariela Devi at [facility].?ED did consult with the patient's on-call GI from [facility] and was advised to transfuse patient, and she will follow up outpatient sorto with them. Patient admitted for acute blood loss secondary to GI bleeding from AVM for the transfusion of blood. 1. 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 -hemoglobin 7.1, hematocrit 21.2 -patient was typed and crossed in the ED blood type AB-positive patient to be infused 2 units of blood: Will recheck H&H 30 minutes after transfusion complete -continue patient's ferrous sulfate -patient to be discharged following transfusion and follow-up with [facility] GI 2. LVH due to hypertensive disease, chronic, present on admission -continue lisinopril 3. Hyperlipidemia, chronic, present on admission -continue pravastatin 4. CKD stage 2, chronic -managed by PCP 5. Patient is malnourished as evidence by BMI of 23.3, acute on chronic, present on admission -patient to follow-up with PCP regarding dietary consult deferred due to acute illness. Code status:DNR Surrogate decision maker: Carly Hutchisonz- friend COVID PCR:Negative COVID vaccination: Unknown DVT/VTE prophylaxis: No medication due to GI bleed, SCDs only Disposition: Patient admitted for observation expected length of stay less than 2 midnights. I have utilized all available immediate resources to obtain, update, or review the patient's current medications. I confirmed that the patient's advanced care plan is present, Code status is documented and/or surrogate decision maker is listed in the patient's medical record. Time Spent With Patient Critical Care time: I spent a total of [] minutes of critical care time on this patient's care today; this time is exclusive of procedural time.
[2021-10-11 03:22] LABS: Add Manual Diff / Slide Review NO; Basophils Absolute Auto 100 /uL (0-100); Basophils Percent Auto 1.3 % (0-2); Eosinophils Absolute Auto 200 /uL (0-450); Eosinophils Percent Auto 4.5 % (2-4); Hematocrit 25.1 % (36-46); Hemoglobin 8.3 g/dL (12.0-16.0); Lymphocytes Absolute Auto 700 /uL (1100-4500); Mean Corpuscular HGB Conc 33.2 % (30-36); Mean Corpuscular Hemoglobin 27.2 PG (26-34); Monocytes Absolute Auto 500 /uL (0-900); Monocytes Percent Auto 12.2 % (3-14); Neutrophils Absolute Auto 2800 /uL (1500-7000); Platelet Count 313 X10^3/uL (150-400); Red Blood Cell Count 3.06 X10^6/uL (4.0-5.2); Red Cell Distribution Width 18.1 % (11.6-14.8); White Blood Cell Count 4.2 X10^3/uL (4.5-11.0)
[2021-10-11 03:26] LABS: INR 1.2 (0.9-1.3); Prothrombin Time 13.9 SECONDS (10.1-12.7)
[2021-10-11 03:30] LABS: Alanine Aminotransferase 11 IU/L (<35); Albumin 3.2 g/dL (3.5-5.0); Alkaline Phosphatase 88 U/L (38-126); Aspartate Aminotransferase 18 IU/L (14-36); BUN Creatinine Ratio 25.5 (6-22); Bilirubin Total 0.6 mg/dL (0.2-1.3); Blood Urea Nitrogen 24 mg/dL (7-17); Calcium 9.2 mg/dL (8.4-10.2); Carbon Dioxide 21 mmol/L (22-32); Chloride 110 mmol/L (98-107); Estimated Glomerular Filt Rate 56.6 mL/min (>60); Globulin 3.2 g/dL (1.7-4.1); Glucose 104 mg/dL (80-110); HEMOLYSIS < 15 (0-50); Potassium 4.4 mmol/L (3.4-5.1); Sodium 134 mmol/L (137-145); Total Protein 6.4 g/dL (6.3-8.2)
[2021-10-11] MEDS: PANTOPRAZOLE 40 MG VIAL IV (09:07)
--- NOTE | 2021-10-11 10:18 | PC.NURSE ---
D/C instructions reviewed with Pt by Rosaura SINGLETARY. IV removed. Pt denies further questions. Pt out via w/c by MOGUL OPERATOR to POV with friend and all belongings.
--- NOTE | 2021-10-11 11:36 | CM.DANOTE ---
DCP/Brief Assessment: Reviewed chart. Patient is a 86yr old female admitted to [facility] with GI bleed. PCP listed is Dr. Love. Primary payor is 1)Medicare 2)[facility]. DEPUTY OF COUNTER INTELLIGENCE attempted to meet with patient to discuss d/c plan. Spoke with RN/Mago whom reports that patient has already discharged. Per nursing patient requiring only blood transfusion. RN reports that there were no d/c planning needs. Patient picked up and transported home by friend. Patient with h/o GI bleeding due to AVM/gastritis. Patient actively being followed by GI group at [facility]. GI provider is Dr. Mariela Devi. P: Home today. JUSTYNA Robb Discharge Planning/Care Management CM Discharge Assessment Start: 10/11/21 11:33 Freq: Status: Active Protocol: Document 10/11/21 11:33 KJS (Rec: 10/11/21 11:36 KJS [id number]) Discharge Planning Assessment Assigned Pharmacy Sales Representative JUSTYNA Robb Contact Information Carly Zavala (family) # Advance Directives? Yes Advance Directives on File No History Provided By Medical Record Prior Living Arrangements House Household Members none Independent with ADL's Yes: Nursing report I in ADL 's. Is patient alert and oriented? Yes: Alert and Oriented x3 Caregiver for Another No Barriers to Discharge No Discharge Plan Home Transportation Arrangement Friend provided transport. Referrals Initiated None needed Review Status In Process Next Review Type Continued Stay Review
--- NOTE | 2021-10-11 15:30 | PM.DS.1 ---
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 Patient is being closely followed by GI doctor DR. Mariela Devi at [facility].? Patient denies fever, chills, chest pain, palpitation, shortness of breath, nausea, vomiting, abdominal pain, flank pain, dysuria, melena, hematochezia, diarrhea, constipation, lightheadedness, dizziness, syncope.? Patient states that she has been transfused several times for this GI bleed and that they were still trying to diagnose the source of the bleed with a PillCam. Last Pillcam 5 days ago.? Patient denies any recent illness injury or trauma. Patient's vitals upon admit were stable temp 97.1?, BP 97/49, HR 81, R 16, O2 saturation 100% on room air.? Patient's hemoglobin 7.1, hematocrit 21.2, mild hyponatremia sodium 132, BUN 24, bicarb 17, GFR 59.5.? Patient is stable and in no distress, denies any active bleeding.? ED did consult with the patient's on-call GI from [facility] and was advised to transfuse patient, and she will follow up outpatient sorto with them.? Patient admitted for acute blood loss secondary to GI bleeding from AVM for the transfusion of blood. Discharge Providers Provider Date of admission: 10/10/21 19:19 Discharge Date: 10/11/21 Primary care physician: Jonny Love MD Discharge provider: Alexandr Adams MD Summary Hospital Course Discharge Diagnosis: 1. Acute on chronic blood loss anemia 2. History of AV malformation of colon 3. History of peptic ulcer disease 4. History of GI bleed 5. Severe aortic stenosis status post TAVR Patient was admitted due to acute on chronic symptomatic anemia. She was transfused 2 units PRBC. Following transfusions her hemoglobin is 8.3 and hematocrit 25.1 with patient feeling better. Exam Vital Signs (past 8 hours): - 10/11/21 08:00 10/11/21 08:30 Temperature 97.6 F Pulse Rate 66 Respiratory Rate 16 Blood Pressure 147/58 H Pulse Oximetry 98 98 Oxygen Delivery Method Room Air Oxygen Flow Rate 0 Narrative Exam Narrative: General: Alert NAD Lungs: Clear Objective Labs Result Diagrams: 10/11/21 03:10 10/11/21 03:10 Labs: Laboratory Results - last 24 hr 10/10/21 10/10/21 10/10/21 13:02 13:02 19:41 WBC RBC Hgb Hct MCV MCH MCHC RDW Plt Count Neut % (Auto) Lymph % (Auto) [place] % (Auto) Eos % (Auto) Baso % (Auto) Neut # (Auto) Lymph # (Auto) [place] # (Auto) Eos # (Auto) Baso # (Auto) PT INR Sodium Potassium Chloride Carbon Dioxide BUN Creatinine Estimated GFR BUN/Creatinine Ratio Glucose Hemoglobin A1c 5.3 Calcium Magnesium Total Bilirubin AST ALT Alkaline Phosphatase NT-Pro-B Natriuret Pep Total Protein Albumin Globulin Albumin/Globulin Ratio SARS-CoV-2 (PCR) Negative Blood Type AB Positive Antibody Screen Positive Antibody Identification Anti-M Crossmatch See Detail 10/10/21 10/10/21 10/10/21 20:15 20:20 Unknown WBC RBC Hgb Cancelled Hct Cancelled MCV MCH MCHC RDW Plt Count Neut % (Auto) Lymph % (Auto) [place] % (Auto) Eos % (Auto) Baso % (Auto) Neut # (Auto) Lymph # (Auto) [place] # (Auto) Eos # (Auto) Baso # (Auto) PT INR Sodium Potassium Chloride Carbon Dioxide BUN Creatinine Estimated GFR BUN/Creatinine Ratio Glucose Hemoglobin A1c Calcium Magnesium 2.3 Total Bilirubin AST ALT Alkaline Phosphatase NT-Pro-B Natriuret Pep 1100 H Total Protein Albumin Globulin Albumin/Globulin Ratio SARS-CoV-2 (PCR) Blood Type Antibody Screen Antibody Identification Crossmatch 10/11/21 10/11/21 10/11/21 03:10 03:10 03:10 WBC 4.2 L RBC 3.06 L Hgb 8.3 L Hct 25.1 L MCV 82.0 MCH 27.2 MCHC 33.2 RDW 18.1 H Plt Count 313 Neut % (Auto) 66.0 Lymph % (Auto) 16.0 L [place] % (Auto) 12.2 Eos % (Auto) 4.5 H Baso % (Auto) 1.3 Neut # (Auto) 2800 Lymph # (Auto) 700 L [place] # (Auto) 500 Eos # (Auto) 200 Baso # (Auto) 100 PT 13.9 H INR 1.2 Sodium 134 L Potassium 4.4 Chloride 110 H Carbon Dioxide 21 L BUN 24 H Creatinine 0.94 Estimated GFR 56.6 L BUN/Creatinine Ratio 25.5 H Glucose 104 Hemoglobin A1c Calcium 9.2 Magnesium Total Bilirubin 0.6 AST 18 ALT 11 Alkaline Phosphatase 88 NT-Pro-B Natriuret Pep Total Protein 6.4 Albumin 3.2 L Globulin 3.2 Albumin/Globulin Ratio 1.0 SARS-CoV-2 (PCR) Blood Type Antibody Screen Antibody Identification Crossmatch [facility] Medical History (Updated 10/11/21 @ 01:53 by AUDRA Kaplan) 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 Gastritis GI bleed History of colon cancer, stage II History of complete heart block History of Helicobacter pylori infection Hyperlipidemia Hypertension LVH (left ventricular hypertrophy) due to hypertensive disease Pacemaker PUD (peptic ulcer disease) Recurrent gastrointestinal hemorrhage Severe aortic stenosis Surgical History (Updated 10/11/21 @ 01:53 by AUDRA Kaplan) History of aortic valve replacement History of hemicolectomy S/P TAVR (transcatheter aortic valve replacement) Family History Other Adopted Social History household members: none Smoking Status: Former smoker alcohol intake: current Discharge Plan Discharge Plan Patient Disposition: Home Provider Discharge Comment: You received 2 units red blood cell transfusion. Your hemoglobin is 8.3 after the transfusions. Discharge orders & Medications Prescriptions: Continued lisinopril 10 MG tablet 20 mg PO QAM Qty: 0 0RF ferrous sulfate [Iron (ferrous sulfate)] 325 mg (65 mg iron) Tablet 325 mg PO DAILY 0RF Rx Instructions: pt takes at lunch rosuvastatin 20 mg tablet 20 mg PO QPM 0RF pantoprazole 40 mg Tablet,Delayed Release (Dr/Ec) 40 mg PO BID 0RF Follow up/Referrals: Jonny Love MD [Primary Care Provider] - Diet/Activity/Treatments Diet: Regular Visit Report/Discharge Packet Instructions: Anemia Discharge Data Primary Care Provider: Jonny Love V Attending Provider: Krupa Galindo
== END 2021-10-11 10:20 | disposition home or self-care (01) ==
LOC: ED 14:05 → AC 19:19
PROVIDERS: Emergency Medicine; Admitting Provider Nurse Practitioner Family; Emergency Provider Student in an Organized Health Care Education/Training Program; PCP Internal Medicine; Visit Provider Nurse Practitioner Family
DX: D62 Acute posthemorrhagic anemia (principal); I12.9 Hypertensive chronic kidney disease with stage 1 through stage 4 chronic kidney disease, or unspecified chronic kidney disease; N18.2 Chronic kidney disease, stage 2 (mild); Z85.038 Personal history of other malignant neoplasm of large intestine; Z87.11 Personal history of peptic ulcer disease; Z87.19 Personal history of other diseases of the digestive system; Z20.822 Contact with and (suspected) exposure to COVID-19
CPT/HCPCS: 36415; 36430; 80053; 83036; 83735; 83880; 85025; 85610; 86850; 86870; 86900; 86901; 87635; 93005; 93010; 94760; 96374; 99284; C9803; G0378; P9016; C9113; J1815

== ENCOUNTER 2021-11-03 16:36 | Emergency (ER) | payer MEDICARE, SELFPAY ==
[2021-10-10 21:04] VITALS: BMI 23.5
[2021-11-03] VITALS (10 sets, daily range): BP systolic 121–172; BP diastolic 54–80; PULSE 60–71; RESP 16–18; TEMP 36.1–36.5; O2SAT 92–99; BMI 22.5
[2021-11-03 17:09] LABS: Add Manual Diff / Slide Review NO; Basophils Absolute Auto 0 /uL (0-100); Basophils Percent Auto 0.5 % (0-2); Eosinophils Absolute Auto 200 /uL (0-450); Eosinophils Percent Auto 4.6 % (2-4); Lymphocytes Absolute Auto 700 /uL (1100-4500); Lymphocytes Percent Auto 14.1 % (25-40); Mean Corpuscular HGB Conc 32.6 % (30-36); Mean Corpuscular Hemoglobin 27.5 PG (26-34); Mean Corpuscular Volume 84.1 fL (80-100); Monocytes Absolute Auto 500 /uL (0-900); Monocytes Percent Auto 9.6 % (3-14); Neutrophils Absolute Auto 3700 /uL (1500-7000); Neutrophils Percent Auto 71.2 % (50-75); Platelet Count 397 X10^3/uL (150-400); Red Blood Cell Count 2.28 X10^6/uL (4.0-5.2); Red Cell Distribution Width 18.3 % (11.6-14.8); White Blood Cell Count 5.2 X10^3/uL (4.5-11.0)
[2021-11-03 17:12] LABS: INR 1.2 (0.9-1.3); Prothrombin Time 13.6 SECONDS (10.1-12.7)
[2021-11-03 17:16] LABS: Hematocrit 19.2 % (36-46); Hemoglobin 6.3 g/dL (12.0-16.0)
[2021-11-03 17:20] LABS: Alanine Aminotransferase 17 IU/L (<35); Albumin 3.8 g/dL (3.5-5.0); Albumin Globulin Ratio 1.1 (1.0-2.8); Alkaline Phosphatase 84 U/L (38-126); Aspartate Aminotransferase 23 IU/L (14-36); BUN Creatinine Ratio 32.8 (6-22); Bilirubin Total 0.3 mg/dL (0.2-1.3); Blood Urea Nitrogen 38 mg/dL (7-17); Calcium 9.3 mg/dL (8.4-10.2); Carbon Dioxide 20 mmol/L (22-32); Chloride 107 mmol/L (98-107); Estimated Glomerular Filt Rate 44.4 mL/min (>60); Globulin 3.6 g/dL (1.7-4.1); Glucose 113 mg/dL (80-110); HEMOLYSIS < 15 (0-50); Potassium 4.5 mmol/L (3.4-5.1); Sodium 135 mmol/L (137-145); Total Protein 7.4 g/dL (6.3-8.2)
[2021-11-03 17:25] LABS: COVID19 -Nasal RAPID Negative (Negative)
--- NOTE | 2021-11-03 18:43 | ED_ITS ---
HPI - Recheck/Abnormal Lab/Rx General Chief Complaint: Recheck/Abnormal Lab/Rx Stated Complaint: Infusion Time Seen by Provider: 11/03/21 17:54 Source: patient Mode of arrival: Ambulatory Limitations: no limitations History of Present Illness HPI narrative: Patient is an 86-year-old female. History with anemia in the past. Has had multiple blood transfusions. She states that she has had multiple evaluations for this to include GI and cardiovascular he had no distinct source for her anemia has been found. She is not on anticoagulation. She had an appointment with her primary doctor yesterday. Labs were performed. She was called by her primary doctor's office to come to the emergency department because her blood counts were low. She denies any symptoms related to this. No fatigue no tachycardia no shortness of breath. She states that she feels perfectly fine. No bruising. No blood in her stool. No blood in her urine. No vomiting blood. No headaches. Related Data Home Medications Medication Instructions Recorded Confirmed lisinopril 10 mg tablet 20 mg PO QAM #0 08/15/17 10/10/21 ferrous sulfate 325 mg (65 mg 325 mg PO DAILY 11/25/20 10/10/21 iron) tablet (Iron (ferrous sulfate)) rosuvastatin 20 mg tablet 20 mg PO QPM 08/19/21 10/10/21 pantoprazole 40 mg tablet,delayed 40 mg PO BID 10/10/21 10/10/21 release Allergies Allergy/AdvReac Type Severity Reaction Status Date / Time ezetimibe [EZETIMIBE] Allergy Unknown Verified 09/08/21 10:27 simvastatin [SIMVASTATIN] AdvReac Intermediate MYALGIAS Verified 09/08/21 10:27 Review of Systems Review of Systems ROS Unobtainable: All systems reviewed & are unremarkable except as noted in HPI and below Patient History Medical History 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 Gastritis GI bleed History of colon cancer, stage II History of complete heart block History of Helicobacter pylori infection Hyperlipidemia Hypertension LVH (left ventricular hypertrophy) due to hypertensive disease Pacemaker PUD (peptic ulcer disease) Recurrent gastrointestinal hemorrhage Severe aortic stenosis Surgical History (Updated 10/11/21 @ 01:53 by AUDRA Kaplan) History of aortic valve replacement History of hemicolectomy S/P TAVR (transcatheter aortic valve replacement) Family History Other Adopted Social History household members: none Smoking Status: Former smoker alcohol intake: current Smoking Status: Former smoker alcohol intake frequency: a few times a month Substance Use Type: does not use Exam Initial Vital Signs Initial Vital Signs: Vital Signs Temperature 97.0 F L 11/03/21 16:41 Pulse Rate 71 11/03/21 16:41 Respiratory Rate 16 11/03/21 16:41 Blood Pressure 172/70 H 11/03/21 16:41 Pulse Oximetry 97 11/03/21 16:41 HENMT Head: normal to inspection and normocephalic Resp Effort & Inspection: normal respiratory effort Auscultation: clear to auscultation bilaterally Cardio Rate: regular rate Rhythm: regular rhythm Heart Sounds: murmur GI Inspection: normal to inspection Skin General: no rashes or lesions noted Neuro General: patient alert, patient awake and patient oriented x3 Speech: speech normal Gait: normal gait Extrem General: normal to inspection and capillary refill normal Psych Appearance: grossly normal and well kempt Course Orders Ordered: ED Orders 11/03/21 22:25 Hemoglobin and Hematocrit Stat Vital Signs Vital signs: Vital Signs - 8 hr 11/03/21 23:04 11/03/21 23:25 Temperature 97.5 F L 97.6 F Pulse Rate 68 60 Respiratory Rate 18 18 Blood Pressure 121/63 139/56 L MDM - Recheck/Abnormal Lab/Rx Medical Records Attestation: I reviewed the patient's medical records. Lab Data Attestation: I reviewed the patient's lab results. Result diagrams: 11/03/21 22:25 11/03/21 16:53 Labs: Lab Results 11/03/21 11/03/21 11/03/21 Range/Units 16:53 16:53 16:53 WBC 5.2 (4.5-11.0) X10^3/uL RBC 2.28 L (4.0-5.2) X10^6/uL Hgb 6.3 L* (12.0-16.0) g/dL Hct 19.2 L* (36-46) % MCV 84.1 (80-100) fL MCH 27.5 (26-34) PG MCHC 32.6 (30-36) % RDW 18.3 H (11.6-14.8) % Plt Count 397 (150-400) X10^3/uL Neut % (Auto) 71.2 (50-75) % Lymph % (Auto) 14.1 L (25-40) % [place] % (Auto) 9.6 (3-14) % Eos % (Auto) 4.6 H (2-4) % Baso % (Auto) 0.5 (0-2) % Neut # (Auto) 3700 (3522-2377) /uL Lymph # (Auto) 700 L (4589-0760) /uL [place] # (Auto) 500 (0-900) /uL Eos # (Auto) 200 (0-450) /uL Baso # (Auto) 0 (0-100) /uL PT 13.6 H (10.1-12.7) SECONDS INR 1.2 (0.9-1.3) Sodium 135 L (137-145) mmol/L Potassium 4.5 (3.4-5.1) mmol/L Chloride 107 (98-107) mmol/L Carbon Dioxide 20 L (22-32) mmol/L BUN 38 H (7-17) mg/dL Creatinine 1.16 H (0.52-1.04) mg/dL Estimated GFR 44.4 L (>60) mL/min BUN/Creatinine Ratio 32.8 H (6-22) Glucose 113 H (80-110) mg/dL Calcium 9.3 (8.4-10.2) mg/dL Total Bilirubin 0.3 (0.2-1.3) mg/dL AST 23 (14-36) IU/L ALT 17 (<35) IU/L Alkaline Phosphatase 84 (38-126) U/L Total Protein 7.4 (6.3-8.2) g/dL Albumin 3.8 (3.5-5.0) g/dL Globulin 3.6 (1.7-4.1) g/dL Albumin/Globulin Ratio 1.1 (1.0-2.8) SARS-CoV-2 (PCR) (Negative) Blood Type Antibody Screen Antibody Identification Crossmatch 11/03/21 11/03/21 11/03/21 Range/Units 16:53 17:14 22:25 WBC (4.5-11.0) X10^3/uL RBC (4.0-5.2) X10^6/uL Hgb 6.5 L* (12.0-16.0) g/dL Hct 20.1 L* (36-46) % MCV (80-100) fL MCH (26-34) PG MCHC (30-36) % RDW (11.6-14.8) % Plt Count (150-400) X10^3/uL Neut % (Auto) (50-75) % Lymph % (Auto) (25-40) % [place] % (Auto) (3-14) % Eos % (Auto) (2-4) % Baso % (Auto) (0-2) % Neut # (Auto) (4822-3929) /uL Lymph # (Auto) (0939-5993) /uL [place] # (Auto) (0-900) /uL Eos # (Auto) (0-450) /uL Baso # (Auto) (0-100) /uL PT (10.1-12.7) SECONDS INR (0.9-1.3) Sodium (137-145) mmol/L Potassium (3.4-5.1) mmol/L Chloride (98-107) mmol/L Carbon Dioxide (22-32) mmol/L BUN (7-17) mg/dL Creatinine (0.52-1.04) mg/dL Estimated GFR (>60) mL/min BUN/Creatinine Ratio (6-22) Glucose (80-110) mg/dL Calcium (8.4-10.2) mg/dL Total Bilirubin (0.2-1.3) mg/dL AST (14-36) IU/L ALT (<35) IU/L Alkaline Phosphatase (38-126) U/L Total Protein (6.3-8.2) g/dL Albumin (3.5-5.0) g/dL Globulin (1.7-4.1) g/dL Albumin/Globulin Ratio (1.0-2.8) SARS-CoV-2 (PCR) Negative (Negative) Blood Type AB Positive Antibody Screen Positive Antibody Identification Anti-M Crossmatch See Detail MDM Narrative Medical decision making narrative: Patient is anemic. It appears that she has had an extensive workup up to this point for this. She is completely asymptomatic. She has had multiple blood transfusions in the past and she expressed understanding of the risks and benefits. She did provide consent. Patient was transfused 1 unit of pack red blood cells. Repeat H&H shows that she is still fairly anemic so a 2nd unit was administered. Given the fact that she is asymptomatic we will hold on a 3rd unit for now as to avoid electrolyte issues and fluid overload. I feel that we can hold on any radiologic studies for now. No indication for admission to the hospital. Patient received 2 units of blood but then spent an extended period of time here in the ER secondary to not having a ride home. Patient will follow-up with her primary provider. Discharge Plan Departure Patient Disposition: Home Clinical Impression: Anemia Instructions: Blood Transfusion, Anemia Activity Restrictions/Additional Instructions: I recommend that you continue to take all of your medications as directed. I do recommend that you contact your primary doctor's office today when they open so that she can schedule a follow-up. You did receive 2 units of blood today. Return to the emergency department for any shortness of breath or fatigue or chest discomfort or lightheadedness. Prescriptions: No Action lisinopril 10 MG tablet 20 mg PO QAM Qty: 0 0RF ferrous sulfate [Iron (ferrous sulfate)] 325 mg (65 mg iron) Tablet 325 mg PO DAILY 0RF Rx Instructions: pt takes at lunch rosuvastatin 20 mg tablet 20 mg PO QPM 0RF pantoprazole 40 mg Tablet,Delayed Release (Dr/Ec) 40 mg PO BID 0RF Referrals: Jonny Love MD [Primary Care Provider] -
--- NOTE | 2021-11-03 22:31 | PC.NURSE ---
started prior to 190
[2021-11-03 22:40] LABS: Hematocrit 20.1 % (36-46); Hemoglobin 6.5 g/dL (12.0-16.0)
[2021-11-04] VITALS: PULSE 65; O2SAT 97
[2021-11-04 00:30] VITALS: PULSE 60; O2SAT 99
[2021-11-04 00:46] VITALS: BP 139/56; PULSE 60; O2SAT 100
--- NOTE | 2021-11-04 02:05 | PC.NURSE ---
pt resting quietly waiting for dc in am blood transfusions completed
--- NOTE | 2021-11-04 03:12 | PC.NURSE ---
no change in condition
--- NOTE | 2021-11-04 06:07 | PC.NURSE ---
pt resting waiting on ride in am and dc
[2021-11-04 06:46] VITALS: BP 153/64; PULSE 73; O2SAT 100
== END 2021-11-04 07:02 | disposition home or self-care (01) ==
PROVIDERS: Emergency Medicine; Emergency Provider Emergency Medicine; PCP Internal Medicine
DX: D64.9 Anemia, unspecified (principal); Z87.891 Personal history of nicotine dependence; Z20.822 Contact with and (suspected) exposure to COVID-19
CPT/HCPCS: 36430; 80053; 85014; 85018; 85025; 85610; 86850; 86870; 86900; 86901; 87635; 99283; 99284; C9803; P9016

== ENCOUNTER → 2022-03-01 10:59 | Outpatient (CLI) | payer MEDICARE, SELFPAY ==
[2021-10-10 21:04] VITALS: BMI 23.5
[2022-03-01 11:36] VITALS: BP 140/38; PULSE 58; RESP 16; TEMP 36.6; O2SAT 100
--- NOTE | 2022-03-01 11:36 | PC.NURSE ---
BP 140/38: PATIENT REPORTS SHE TOOK HER BP MED THIS AM PRESCRIBED, SHE DRANK COFFEE-2 CUPS, HAS NOT BEEN HAVING ANY DIZZINESS AND SHE THINKS SHE IS DRINKING SUFFICIENT OTHER FLUIDS.
[2022-03-01] MEDS: EPOETIN ALFA-EPBX 20,000 UNIT/ML VIAL 20000 UNIT SUBCUT (11:54)
--- NOTE | 2022-03-01 12:18 | PC.NURSE ---
LOW DIASTOLIC BLOOD PRESSURE: THIS NURSE SPOKE WITH DAVID CAMPOS AT DR SARAVIA'S OFFICE RE PATIENT BLOOD PRESSURES OF 136/23 (AUTOMATIC CUFF) AND 140/38 (MANUAL CUFF) TODAY WELL DIASTOLIC BLOOD PRESSURES OF 44 OR LESS CONSISTENTLY IN THE LAST FEW MONTHS. BETH STATED SHE WILL GIVE THIS INFO TO DR SARAVIA AND CONTACT THE PATIENT. PATIENT WAS ALSO TOLD TO CONTACT HER PCP BY THIS NURSE.
== END ==
PROVIDERS: PCP Internal Medicine; Referring Provider Internal Medicine; Visit Provider Internal Medicine Medical Oncology
DX: E11.22 Type 2 diabetes mellitus with diabetic chronic kidney disease (principal); I12.9 Hypertensive chronic kidney disease with stage 1 through stage 4 chronic kidney disease, or unspecified chronic kidney disease; N18.9 Chronic kidney disease, unspecified; D63.1 Anemia in chronic kidney disease
CPT/HCPCS: 96372; Q5106

== ENCOUNTER → 2022-03-08 11:01 | Outpatient (CLI) | payer MEDICARE, SELFPAY ==
[2021-10-10 21:04] VITALS: BMI 23.5
[2022-03-08 11:47] LABS: Add Manual Diff / Slide Review NO; Basophils Absolute Auto 100 /uL (0-100); Basophils Percent Auto 1.3 % (0-2); Eosinophils Absolute Auto 100 /uL (0-450); Eosinophils Percent Auto 2.9 % (2-4); Hematocrit 22.1 % (36-46); Hemoglobin 7.3 g/dL (12.0-16.0); Lymphocytes Absolute Auto 500 /uL (1100-4500); Lymphocytes Percent Auto 11.7 % (25-40); Mean Corpuscular HGB Conc 32.8 % (30-36); Mean Corpuscular Hemoglobin 29.8 PG (26-34); Mean Corpuscular Volume 90.9 fL (80-100); Monocytes Absolute Auto 500 /uL (0-900); Monocytes Percent Auto 10.7 % (3-14); Neutrophils Absolute Auto 3400 /uL (1500-7000); Neutrophils Percent Auto 73.4 % (50-75); Platelet Count 321 X10^3/uL (150-400); Red Blood Cell Count 2.43 X10^6/uL (4.0-5.2); Red Cell Distribution Width 15.3 % (11.6-14.8); White Blood Cell Count 4.7 X10^3/uL (4.5-11.0)
== END ==
PROVIDERS: PCP Internal Medicine; Referring Provider Internal Medicine Medical Oncology; Visit Provider Internal Medicine Medical Oncology
DX: E11.22 Type 2 diabetes mellitus with diabetic chronic kidney disease (principal); I12.9 Hypertensive chronic kidney disease with stage 1 through stage 4 chronic kidney disease, or unspecified chronic kidney disease; N18.9 Chronic kidney disease, unspecified; D63.1 Anemia in chronic kidney disease
CPT/HCPCS: 36415; 85025

== ENCOUNTER → 2022-03-08 11:37 | Outpatient (CLI) | payer MEDICARE, SELFPAY ==
[2021-10-10 21:04] VITALS: BMI 23.5
[2022-03-08 11:53] VITALS: BP 157/36; PULSE 66; RESP 18; TEMP 36.7; O2SAT 100
[2022-03-08] MEDS: EPOETIN ALFA-EPBX 20,000 UNIT/ML VIAL 20000 UNIT SUBCUT (12:09)
--- NOTE | 2022-03-08 16:28 | PC.NURSE ---
Weekly CBC; pt requests that her CBC's be drawn at her PCP office; [facility], [place]. Standing order for weekly CBC ( x 6 months) faxed to [facility] and receipt confirmed.She will go on Mondays for lab result that is needed by [facility] appt.Labs are sent to [facility] and resulted from there. Clinic # ( back line) [phone] fax is [phone].
== END ==
PROVIDERS: PCP Internal Medicine; Referring Provider Internal Medicine; Visit Provider Internal Medicine Medical Oncology
DX: I12.9 Hypertensive chronic kidney disease with stage 1 through stage 4 chronic kidney disease, or unspecified chronic kidney disease (principal); N18.9 Chronic kidney disease, unspecified; D63.1 Anemia in chronic kidney disease; E11.22 Type 2 diabetes mellitus with diabetic chronic kidney disease
CPT/HCPCS: 36415; 85025; 96372; Q5106

== ENCOUNTER → 2022-03-15 11:23 | Outpatient (CLI) | payer MEDICARE, SELFPAY ==
[2021-10-10 21:04] VITALS: BMI 23.5
== END ==
PROVIDERS: PCP Internal Medicine; Referring Provider Internal Medicine; Visit Provider Internal Medicine Medical Oncology
DX: E11.22 Type 2 diabetes mellitus with diabetic chronic kidney disease (principal); I12.9 Hypertensive chronic kidney disease with stage 1 through stage 4 chronic kidney disease, or unspecified chronic kidney disease; N18.9 Chronic kidney disease, unspecified; D63.1 Anemia in chronic kidney disease

== ENCOUNTER → 2022-03-16 11:46 | Outpatient (CLI) | payer MEDICARE, SELFPAY ==
[2021-10-10 21:04] VITALS: BMI 23.5
[2022-03-16 12:18] VITALS: BP 160/36; PULSE 77; RESP 18; TEMP 36.4; O2SAT 100
[2022-03-16 12:36] VITALS: BP 132/28
[2022-03-16] MEDS: EPOETIN ALFA-EPBX 20,000 UNIT/ML VIAL 20000 UNIT SUBCUT (12:46)
[2022-03-16 12:53] VITALS: BP 138/40
--- NOTE | 2022-03-16 15:51 | PC.NURSE ---
LOW DIASTOLIC: DIASTOLIC BP READINGS OF TODAY AGAIN QUITE LOW (SEE VS CHARTING), PATIENT REPORTS THAT DR SARAVIA CALLED BUT DID NOT CHANGE ANYTHING. PATIENT REPORTS DIASTOLIC READINGS AT HOME OF 40-50. THIS NURSE SPOKE WITH MA AT DR SARAVIA'S OFFICE. THEY CALLED HER AFTER OUR LAST CALL AND ASKED HER TO MAKE A LOG OF BP READINGS AT HOME AND WILL BE CHECKING BACK IN WITH HER AFTER ABOUT 2 WEEKS OF THAT.
== END ==
PROVIDERS: PCP Internal Medicine; Referring Provider Internal Medicine; Visit Provider Internal Medicine Medical Oncology
DX: E11.22 Type 2 diabetes mellitus with diabetic chronic kidney disease (principal); I12.9 Hypertensive chronic kidney disease with stage 1 through stage 4 chronic kidney disease, or unspecified chronic kidney disease; N18.9 Chronic kidney disease, unspecified; D63.1 Anemia in chronic kidney disease
CPT/HCPCS: 36415; 85025; 96372; Q5106

== ENCOUNTER → 2022-03-22 11:25 | Outpatient (CLI) | payer MEDICARE, SELFPAY ==
[2021-10-10 21:04] VITALS: BMI 23.5
[2022-03-22 11:35] VITALS: PULSE 79; RESP 16; TEMP 36.4; O2SAT 100
[2022-03-22 11:48] VITALS: BP 151/44
[2022-03-22] MEDS: EPOETIN ALFA-EPBX 20,000 UNIT/ML VIAL 20000 UNIT SUBCUT (12:05)
== END ==
PROVIDERS: PCP Internal Medicine; Referring Provider Internal Medicine; Visit Provider Internal Medicine Medical Oncology
DX: E11.22 Type 2 diabetes mellitus with diabetic chronic kidney disease (principal); I12.9 Hypertensive chronic kidney disease with stage 1 through stage 4 chronic kidney disease, or unspecified chronic kidney disease; N18.9 Chronic kidney disease, unspecified; D63.1 Anemia in chronic kidney disease
CPT/HCPCS: 36415; 85025; 96372; Q5106

== ENCOUNTER → 2022-03-29 11:19 | Outpatient (CLI) | payer MEDICARE, SELFPAY ==
[2021-10-10 21:04] VITALS: BMI 23.5
[2022-03-29 11:32] VITALS: BP 167/41; PULSE 78; RESP 16; TEMP 36.3; O2SAT 96
[2022-03-29] MEDS: EPOETIN ALFA-EPBX 20,000 UNIT/ML VIAL 20000 UNIT SUBCUT (12:06)
== END ==
PROVIDERS: PCP Internal Medicine; Referring Provider Internal Medicine; Visit Provider Internal Medicine Medical Oncology
DX: E11.22 Type 2 diabetes mellitus with diabetic chronic kidney disease (principal); I12.9 Hypertensive chronic kidney disease with stage 1 through stage 4 chronic kidney disease, or unspecified chronic kidney disease; N18.9 Chronic kidney disease, unspecified; D63.1 Anemia in chronic kidney disease; E53.8 Deficiency of other specified B group vitamins
CPT/HCPCS: 36415; 85025; 96372; J3420; Q5106

== ENCOUNTER → 2022-04-06 11:25 | Outpatient (CLI) | payer MEDICARE, SELFPAY ==
[2021-10-10 21:04] VITALS: BMI 23.5
[2022-04-06 11:44] VITALS: BP 148/27; PULSE 61; RESP 20; TEMP 36.6; O2SAT 100
[2022-04-06] MEDS: EPOETIN ALFA 20,000 UNIT/ML VIAL 20000 UNIT SUBCUT (13:30)
== END ==
PROVIDERS: PCP Internal Medicine; Referring Provider Internal Medicine Medical Oncology; Visit Provider Internal Medicine Medical Oncology
DX: E11.22 Type 2 diabetes mellitus with diabetic chronic kidney disease (principal); I12.9 Hypertensive chronic kidney disease with stage 1 through stage 4 chronic kidney disease, or unspecified chronic kidney disease; N18.9 Chronic kidney disease, unspecified; D63.1 Anemia in chronic kidney disease; E53.8 Deficiency of other specified B group vitamins
CPT/HCPCS: 36415; 85025; 96372; J0885

== ENCOUNTER → 2022-04-12 11:22 | Outpatient (CLI) | payer MEDICARE, SELFPAY ==
[2021-10-10 21:04] VITALS: BMI 23.5
[2022-04-12 11:44] VITALS: BP 159/38; PULSE 67; RESP 16; TEMP 36.4; O2SAT 100
[2022-04-12 11:56] VITALS: BP 134/27
[2022-04-12] MEDS: EPOETIN ALFA-EPBX 20,000 UNIT/ML VIAL 20000 UNIT SUBCUT (12:03)
== END ==
PROVIDERS: Referring Provider Internal Medicine Medical Oncology; Visit Provider Internal Medicine Medical Oncology
DX: E11.22 Type 2 diabetes mellitus with diabetic chronic kidney disease (principal); I12.9 Hypertensive chronic kidney disease with stage 1 through stage 4 chronic kidney disease, or unspecified chronic kidney disease; N18.9 Chronic kidney disease, unspecified; D63.1 Anemia in chronic kidney disease; E53.8 Deficiency of other specified B group vitamins
CPT/HCPCS: 36415; 85025; 96372; Q5106

== ENCOUNTER → 2022-04-19 10:41 | Outpatient (CLI) | payer MEDICARE, SELFPAY ==
[2021-10-10 21:04] VITALS: BMI 23.5
[2022-04-19 11:06] LABS: Add Manual Diff / Slide Review NO; Basophils Absolute Auto 100 /uL (0-100); Eosinophils Absolute Auto 200 /uL (0-450); Eosinophils Percent Auto 3.7 % (2-4); Hematocrit 22.6 % (36-46); Hemoglobin 7.3 g/dL (12.0-16.0); Lymphocytes Absolute Auto 600 /uL (1100-4500); Mean Corpuscular HGB Conc 32.2 % (30-36); Mean Corpuscular Hemoglobin 28.6 PG (26-34); Mean Corpuscular Volume 88.8 fL (80-100); Monocytes Absolute Auto 400 /uL (0-900); Monocytes Percent Auto 9.9 % (3-14); Neutrophils Absolute Auto 3200 /uL (1500-7000); Neutrophils Percent Auto 71.4 % (50-75); Platelet Count 328 X10^3/uL (150-400); Red Blood Cell Count 2.54 X10^6/uL (4.0-5.2); Red Cell Distribution Width 15.9 % (11.6-14.8); White Blood Cell Count 4.4 X10^3/uL (4.5-11.0)
== END ==
PROVIDERS: PCP Internal Medicine; Referring Provider Internal Medicine Medical Oncology; Visit Provider Internal Medicine Medical Oncology
DX: D63.8 Anemia in other chronic diseases classified elsewhere (principal)
CPT/HCPCS: 36415; 85025

== ENCOUNTER → 2022-04-19 11:24 | Outpatient (CLI) | payer MEDICARE, SELFPAY ==
[2021-10-10 21:04] VITALS: BMI 23.5
[2022-04-19 11:36] VITALS: BP 159/39; PULSE 62; RESP 18; TEMP 36.5; O2SAT 100
[2022-04-19] MEDS: EPOETIN ALFA-EPBX 20,000 UNIT/ML VIAL 20000 UNIT SUBCUT (11:52)
[2022-04-19 12:05] VITALS: BP 149/35
== END ==
PROVIDERS: PCP Internal Medicine; Referring Provider Internal Medicine; Visit Provider Internal Medicine Medical Oncology
DX: E11.22 Type 2 diabetes mellitus with diabetic chronic kidney disease (principal); I12.9 Hypertensive chronic kidney disease with stage 1 through stage 4 chronic kidney disease, or unspecified chronic kidney disease; N18.9 Chronic kidney disease, unspecified; D63.1 Anemia in chronic kidney disease
CPT/HCPCS: 36415; 85025; 96372; Q5106

== ENCOUNTER → 2022-04-27 11:05 | Outpatient (CLI) | payer MEDICARE, SELFPAY ==
[2021-10-10 21:04] VITALS: BMI 23.5
[2022-04-27 11:31] VITALS: BP 143/47; PULSE 63; RESP 16; TEMP 36.6; O2SAT 100
[2022-04-27] MEDS: EPOETIN ALFA-EPBX 40,000 UNIT/ML VIAL 40000 UNIT SUBCUT (11:38)
== END ==
PROVIDERS: PCP Internal Medicine; Referring Provider Internal Medicine; Visit Provider Internal Medicine Medical Oncology
DX: E11.22 Type 2 diabetes mellitus with diabetic chronic kidney disease (principal); N18.9 Chronic kidney disease, unspecified; I12.9 Hypertensive chronic kidney disease with stage 1 through stage 4 chronic kidney disease, or unspecified chronic kidney disease; D63.1 Anemia in chronic kidney disease
CPT/HCPCS: 36415; 80053; 85025; 96372; Q5106

== ENCOUNTER → 2022-05-04 11:07 | Outpatient (CLI) | payer MEDICARE, SELFPAY ==
[2021-10-10 21:04] VITALS: BMI 23.5
[2022-05-04 11:38] VITALS: BP 151/51; PULSE 70; RESP 16; TEMP 36.6; O2SAT 98
[2022-05-04] MEDS: EPOETIN ALFA-EPBX 40,000 UNIT/ML VIAL 40000 UNIT SUBCUT (11:50)
[2022-05-04 14:32] VITALS: BP 131/20; PULSE 61; RESP 18; TEMP 36.8
[2022-05-04 14:49] VITALS: BP 131/23; PULSE 60; RESP 16; TEMP 36.3
[2022-05-04 16:59] VITALS: BP 147/29; PULSE 61; RESP 16; TEMP 36.9
== END ==
PROVIDERS: PCP Internal Medicine; Referring Provider Internal Medicine; Visit Provider Internal Medicine Medical Oncology
DX: E11.22 Type 2 diabetes mellitus with diabetic chronic kidney disease (principal); I12.9 Hypertensive chronic kidney disease with stage 1 through stage 4 chronic kidney disease, or unspecified chronic kidney disease; N18.9 Chronic kidney disease, unspecified; D63.1 Anemia in chronic kidney disease
CPT/HCPCS: 36415; 36430; 85025; 86850; 86870; 86900; 86901; 96372; P9016; Q5106

== ENCOUNTER → 2022-05-18 11:19 | Outpatient (CLI) | payer MEDICARE, SELFPAY ==
[2021-10-10 21:04] VITALS: BMI 23.5
[2022-05-18 11:45] VITALS: BP 143/30; PULSE 59; RESP 16; TEMP 36.2; O2SAT 100
[2022-05-18] MEDS: EPOETIN ALFA-EPBX 20,000 UNIT/ML VIAL 40000 UNIT SUBCUT (12:00)
== END ==
PROVIDERS: PCP Internal Medicine; Referring Provider Internal Medicine; Visit Provider Internal Medicine Medical Oncology
DX: N18.9 Chronic kidney disease, unspecified (principal); D63.1 Anemia in chronic kidney disease; E11.22 Type 2 diabetes mellitus with diabetic chronic kidney disease; I12.9 Hypertensive chronic kidney disease with stage 1 through stage 4 chronic kidney disease, or unspecified chronic kidney disease; D50.0 Iron deficiency anemia secondary to blood loss (chronic); E53.8 Deficiency of other specified B group vitamins
CPT/HCPCS: 36415; 85025; 96372; Q5106

== ENCOUNTER → 2022-06-07 10:09 | Outpatient (CLI) | payer MEDICARE, SELFPAY ==
[2021-10-10 21:04] VITALS: BMI 23.5
[2022-06-07 10:58] LABS: Add Manual Diff / Slide Review NO; Basophils Absolute Auto 100 /uL (0-100); Basophils Percent Auto 1.2 % (0-2); Eosinophils Absolute Auto 200 /uL (0-450); Eosinophils Percent Auto 3.5 % (2-4); Hematocrit 24.5 % (36-46); Hemoglobin 7.8 g/dL (12.0-16.0); Lymphocytes Absolute Auto 600 /uL (1100-4500); Lymphocytes Percent Auto 11.6 % (25-40); Mean Corpuscular HGB Conc 31.9 % (30-36); Mean Corpuscular Hemoglobin 27.3 PG (26-34); Mean Corpuscular Volume 85.5 fL (80-100); Monocytes Absolute Auto 500 /uL (0-900); Monocytes Percent Auto 9.8 % (3-14); Neutrophils Absolute Auto 3700 /uL (1500-7000); Neutrophils Percent Auto 73.9 % (50-75); Platelet Count 319 X10^3/uL (150-400); Red Blood Cell Count 2.87 X10^6/uL (4.0-5.2); Red Cell Distribution Width 16.2 % (11.6-14.8); White Blood Cell Count 5.1 X10^3/uL (4.5-11.0)
[2022-06-07 11:18] LABS: Alanine Aminotransferase 14 IU/L (<35); Albumin 3.8 g/dL (3.5-5.0); Albumin Globulin Ratio 1.2 (1.0-2.8); Alkaline Phosphatase 78 U/L (38-126); Aspartate Aminotransferase 23 IU/L (14-36); BUN Creatinine Ratio 25.8 (6-22); Bilirubin Total 0.3 mg/dL (0.2-1.3); Blood Urea Nitrogen 25 mg/dL (7-17); Calcium 9.1 mg/dL (8.4-10.2); Carbon Dioxide 22 mmol/L (22-32); Chloride 101 mmol/L (98-107); Estimated Glomerular Filt Rate 57 mL/min (>60); Globulin 3.1 g/dL (1.7-4.1); Glucose 86 mg/dL (80-110); HEMOLYSIS < 15 (0-50); Potassium 5.3 mmol/L (3.4-5.1); Sodium 132 mmol/L (137-145); Total Protein 6.9 g/dL (6.3-8.2)
[2022-06-07 13:29] LABS: HEMOLYSIS < 15 (0-50); Iron 36 ug/dL (37-170)
[2022-06-07 13:40] LABS: Percent Iron Saturation 10 % (15-50); Total Iron Binding Capacity 347 ug/dL (265-497); Transferrin 250 mg/dL (206-381)
[2022-06-07 13:59] LABS: Ferritin 20 ng/mL (11-264)
== END ==
PROVIDERS: PCP Internal Medicine; Referring Provider Internal Medicine Medical Oncology; Visit Provider Internal Medicine Medical Oncology
DX: N18.9 Chronic kidney disease, unspecified (principal); D63.1 Anemia in chronic kidney disease
CPT/HCPCS: 36415; 80053; 82728; 83540; 83550; 85025

== ENCOUNTER 2022-11-10 22:17 | Emergency (ER) | payer MEDICARE, SELFPAY ==
[2021-10-10 21:04] VITALS: BMI 23.5
--- NOTE | 2022-11-10 22:20 | DI.RAD.S_ITS ---
PROCEDURE: XR HIP W PEL IF DONE LT 2V INDICATIONS: fall with pain TECHNIQUE: AP pelvis with lateral view of the left hip. COMPARISON: None. FINDINGS: Bones: There is a mildly impacted left femoral neck fracture. Pelvic ring appears intact. No suspicious bony lesions. Soft tissues: The visualized bowel gas pattern is normal. No suspicious soft tissue calcifications. IMPRESSION: 1. Mildly impacted left femoral neck fracture. Dictated by: Wong Smith M.D. on 11/10/2022 at 23:10 Approved by: Wong Smith M.D. on 11/10/2022 at 23:11
--- NOTE | 2022-11-10 22:20 | DI.RAD.S_ITS ---
PROCEDURE: XR KNEE LT 3V INDICATIONS: fall with pain TECHNIQUE: 2 views of the knee were acquired. COMPARISON: [facility], CR, XR KNEE RT 3V, 03/21/2021, 11:38. FINDINGS: Bones: No fractures or dislocations. There is mild joint space narrowing in the medial compartment. No suspicious bony lesions. Soft tissues: There is a small joint effusion. No suspicious soft tissue calcifications. IMPRESSION: 1. No fracture or dislocation. Dictated by: Wong Smith M.D. on 11/10/2022 at 23:12 Approved by: Wong Smith M.D. on 11/10/2022 at 23:13
[2022-11-10 22:25] VITALS: BP 188/78; PULSE 84; RESP 18; TEMP 36.6; O2SAT 99; BMI 21.6
--- NOTE | 2022-11-10 23:05 | ED_ITS ---
HPI - Fall General Chief Complaint: Fall Stated Complaint: Left twisted knee Time Seen by Provider: 11/10/22 22:26 Source: patient Mode of arrival: EMS History of Present Illness HPI Narrative: 87-year-old female former smoker with history of GI bleed, anemia, AVM of the colon, hypertension presents by EMS for evaluation of a ground level fall resulting in left hip and knee pain. She states that she was attempting to stand while getting off of her sofa and tripped and fell onto her left hip and twisted her knee. She denies any head, neck or back pain. She has no chest pain or shortness of breath and no involvement of her upper extremities. She denies prodromal symptoms such as dizziness, weakness or lightheadedness. She has severe pain in her left hip and knee and is unable to weightbear as a consequence. She denies numbness, tingling or weakness Related Data Home Medications Medication Instructions Recorded Confirmed lisinopril 10 mg tablet 20 mg PO [facility] ##0 08/15/17 10/11/22 ferrous sulfate 325 mg (65 mg 325 mg PO DAILY 11/25/20 10/11/22 iron) tablet (Iron (ferrous sulfate)) rosuvastatin 20 mg tablet 20 mg PO QPM 08/19/21 10/11/22 pantoprazole 40 mg tablet,delayed 40 mg PO BID 10/10/21 10/11/22 release ascorbic acid (vitamin C) 500 mg 500 mg PO DAILY 02/22/22 10/11/22 tablet (Vitamin C) vitamin B complex 1 cap PO DAILY 02/22/22 10/11/22 Allergies Allergy/AdvReac Type Severity Reaction Status Date / Time ezetimibe [EZETIMIBE] Allergy Unknown Verified 09/08/21 10:27 simvastatin [SIMVASTATIN] AdvReac Intermediate MYALGIAS Verified 09/08/21 10:27 Review of Systems Review of Systems Narrative: GENERAL: Denies chills, fatigue, malaise, fever, sweats. HEENT: Denies sinus pain, ear pain, sore throat, difficulty swallowing, dizziness. RESPIRATORY: Denies dyspnea, cough, wheezing, hemoptysis, sputum. CARDIOVASCULAR: Denies chest pain, palpitations, orthopnea, edema, GASTROINTESTINAL: Denies nausea, vomiting, abdominal pain, diarrhea, constipation, melena. : Denies dysuria, frequency, incontinence, hematuria, urinary retention. MUSCULOSKELETAL: See HPI SKIN: Denies rash, skin lesions, or other NEUROLOGIC: See HPI PSYCHIATRIC: No concerning psychosocial issues. 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 Gastritis GI bleed History of colon cancer, stage II History of complete heart block History of Helicobacter pylori infection Hyperlipidemia Hypertension LVH (left ventricular hypertrophy) due to hypertensive disease Pacemaker PUD (peptic ulcer disease) Recurrent gastrointestinal hemorrhage Severe aortic stenosis Surgical History History of aortic valve replacement History of hemicolectomy S/P TAVR (transcatheter aortic valve replacement) Family History Other Adopted Social History household members: none Smoking Status: Former smoker alcohol intake: current Smoking Status: Former smoker alcohol intake frequency: a few times a month Substance Use Type: does not use Exam Narrative Exam Narrative: GENERAL: [87] year old patient appears stated age. Well-developed patient, in mild distress. HEAD: Atraumatic. Normocephalic. EYES: Pupils equal round and reactive. Extraocular motions intact. No scleral icterus. No injection or drainage. ENT: Nose without bleeding, purulent drainage. Throat without erythema, tonsillar hypertrophy or exudate. Airway patent. NECK: Trachea midline. Non tender CARDIOVASCULAR: Regular rate and rhythm without murmurs, gallops, or rubs. RESPIRATORY: Clear to auscultation. Breath sounds equal bilaterally. No wheezes, rales, or rhonchi. GASTROINTESL hip tender to palpation, shortened and externally rotated. Pain on palpation of knee, no effusion, or ligamentious instability. This is closed and neurovascularly intact BACK: Nontender without deformity or crepitance. No flank tenderness. NEURO: AOx3. SKIN: No rash or erythema of visible areas Initial Vital Signs Initial Vital Signs: Vital Signs Temperature 97.8 F 11/10/22 22:25 Pulse Rate 84 11/10/22 22:25 Respiratory Rate 18 11/10/22 22:25 Blood Pressure 188/78 H 03/10/23 22:25 Pulse Oximetry 99 11/10/22 22:25 Oxygen Delivery Method Room Air 11/10/22 22:25 Course Orders Ordered: ED Orders 11/10/22 22:20 XR hip w pel if done LT 2V Stat XR knee LT 1to2V Stat 11/10/22 22:37 COVID19 -Nasal RAPID Stat 11/10/22 22:39 Complete Blood Count AUTO DIFF Stat Comprehensive Metabolic Panel Stat 11/11/22 EKG-12 Lead Routine Fentanyl (Fentanyl 100 Mcg/2 Ml Inj) 50 mcg IV Q1H PRN PRN Reason: Pain, Severe (7-10) Last Admin: 11/11/22 02:48 Dose: 50 mcg Documented By: BS Discontinued Medications Ondansetron HCl (Ondansetron 4 Mg/2 Ml Inj) 4 mg IV NOW ONE Stop: 11/11/22 02:45 Vital Signs Vital signs: Vital Signs - 8 hr 11/10/22 22:25 Temperature 97.8 F Pulse Rate 84 Respiratory Rate 18 Blood Pressure 188/78 H Pulse Oximetry 99 Oxygen Delivery Method Room Air MDM - Fall Lab Data 11/10/22 22:39 11/10/22 22:39 Labs: Lab Results 11/10/22 11/10/22 11/10/22 Range/Units 22:37 22:39 22:39 WBC 7.6 (4.5-11.0) X10^3/uL RBC 2.59 L (4.0-5.2) X10^6/uL Hgb 7.8 L (12.0-16.0) g/dL Hct 23.7 L (36-46) % MCV 91.7 (80-100) fL MCH 30.3 (26-34) PG MCHC 33.1 (30-36) % RDW 18.6 H (11.6-14.8) % Plt Count 246 (150-400) X10^3/uL Neut % (Auto) 87.1 H (50-75) % Lymph % (Auto) 4.8 L (25-40) % [place] % (Auto) 7.0 (3-14) % Eos % (Auto) 0.3 L (2-4) % Baso % (Auto) 0.8 (0-2) % Neut # (Auto) 6600 (8477-7630) /uL Lymph # (Auto) 400 L (6836-8539) /uL [place] # (Auto) 500 (0-900) /uL Eos # (Auto) 0 (0-450) /uL Baso # (Auto) 100 (0-100) /uL Sodium 134 L (137-145) mmol/L Potassium 3.8 (3.4-5.1) mmol/L Chloride 104 (98-107) mmol/L Carbon Dioxide 22 (22-32) mmol/L BUN 22 H (7-17) mg/dL Creatinine 0.87 (0.52-1.04) mg/dL Estimated GFR > 60 (>60) mL/min BUN/Creatinine Ratio 25.3 H (6-22) Glucose 128 H (80-110) mg/dL Calcium 8.9 (8.4-10.2) mg/dL Total Bilirubin 0.5 (0.2-1.3) mg/dL AST 31 (14-36) IU/L ALT 24 (<35) IU/L Alkaline Phosphatase 102 (38-126) U/L Total Protein 7.2 (6.3-8.2) g/dL Albumin 3.9 (3.5-5.0) g/dL Globulin 3.3 (1.7-4.1) g/dL Albumin/Globulin Ratio 1.2 (1.0-2.8) SARS-CoV-2 (PCR) Negative (Negative) Imaging Data L Hip: Radiologist's Impression: Impacted left femoral neck fracture MDM Narrative Medical decision making narrative: [87] year old patient presents with left hip pain after fall Multiple etiologies for patient's symptoms considered including, but not limited to: [Left hip contusion, fracture, left knee sprain, contusion, fracture versus other] Prior Charts reviewed in our EMR Primary Historian: patient Labs reviewed and interpreted by myself: No leukocytosis, patient is anemic but at her relative baseline, electrolytes and renal function and normal range Imaging reviewed: Left hip x-ray notes a mildly impacted femoral neck fracture, left knee x-ray unremarkable Consultations: Patient with ground level fall due to feet getting caught up underneath her presents with left hip pain and knee pain. History, physical exam and imaging are consistent with left hip fracture which is closed and neurovascularly intact. Patient requires hospitalization for surgical repair, however unfortunately we have an unplanned, temporary OR closure for the next 4-5 days and patient will require transfer 0100 - calls to [facility], [place], and [facility]. No beds 0144 - call back from [facility]. Beds have opened up. Paged ortho [phone] - Dr. Meredith ([facility] Ortho) happy to accept, given medical history requests call to hospitalist service [phone] - Dr. Linn ([facility] Hospitalist) happy to accept. Critical Care Time Critical Care Time Critical Care Time: Yes Total Critical Care Time: 30 Attestation: The high probability of a clinically significant, sudden or life threatening deterioration of the [MSK] system(s) required my full and direct attention, intervention and personal management. The aggregate critical care time was [30] minutes. This time is in addition to time spent performing reported procedures but includes the following: [x] Data Review and interpretation [x] Patient assessment and monitoring of vital signs [x] Documentation [x] Medication orders and management Discharge Plan Departure Patient Disposition: [facility] Clinical Impression: Closed fracture of left hip, Knee sprain, Anemia in chronic illness Prescriptions: No Action lisinopril 10 MG tablet 20 mg PO QAM Qty: 0 ferrous sulfate [Iron (ferrous sulfate)] 325 mg (65 mg iron) Tablet 325 mg PO DAILY Rx Instructions: pt takes at lunch rosuvastatin 20 mg tablet 20 mg PO QPM ascorbic acid (vitamin C) [Vitamin C] 500 mg Tablet 500 mg PO DAILY vitamin B complex Capsule 1 cap PO DAILY pantoprazole 40 mg Tablet,Delayed Release (Dr/Ec) 40 mg PO BID Referrals: Nichol Root MD [Primary Care Provider] -
[2022-11-10 23:08] LABS: COVID19 -Nasal RAPID Negative (Negative)
[2022-11-10 23:11] LABS: Add Manual Diff / Slide Review NO; Basophils Absolute Auto 100 /uL (0-100); Basophils Percent Auto 0.8 % (0-2); Eosinophils Absolute Auto 0 /uL (0-450); Eosinophils Percent Auto 0.3 % (2-4); Hematocrit 23.7 % (36-46); Hemoglobin 7.8 g/dL (12.0-16.0); Lymphocytes Absolute Auto 400 /uL (1100-4500); Lymphocytes Percent Auto 4.8 % (25-40); Mean Corpuscular HGB Conc 33.1 % (30-36); Mean Corpuscular Hemoglobin 30.3 PG (26-34); Mean Corpuscular Volume 91.7 fL (80-100); Monocytes Absolute Auto 500 /uL (0-900); Neutrophils Absolute Auto 6600 /uL (1500-7000); Neutrophils Percent Auto 87.1 % (50-75); Platelet Count 246 X10^3/uL (150-400); Red Blood Cell Count 2.59 X10^6/uL (4.0-5.2); Red Cell Distribution Width 18.6 % (11.6-14.8); White Blood Cell Count 7.6 X10^3/uL (4.5-11.0)
[2022-11-10 23:19] LABS: Alanine Aminotransferase 24 IU/L (<35); Albumin 3.9 g/dL (3.5-5.0); Albumin Globulin Ratio 1.2 (1.0-2.8); Alkaline Phosphatase 102 U/L (38-126); Aspartate Aminotransferase 31 IU/L (14-36); BUN Creatinine Ratio 25.3 (6-22); Bilirubin Total 0.5 mg/dL (0.2-1.3); Blood Urea Nitrogen 22 mg/dL (7-17); Calcium 8.9 mg/dL (8.4-10.2); Carbon Dioxide 22 mmol/L (22-32); Chloride 104 mmol/L (98-107); Estimated Glomerular Filt Rate > 60 mL/min (>60); Globulin 3.3 g/dL (1.7-4.1); Glucose 128 mg/dL (80-110); HEMOLYSIS < 15 (0-50); Potassium 3.8 mmol/L (3.4-5.1); Sodium 134 mmol/L (137-145); Total Protein 7.2 g/dL (6.3-8.2)
[2022-11-11] VITALS (7 sets, daily range): BP systolic 135–182; BP diastolic 60–77; PULSE 63–75; RESP 16–20; O2SAT 98–99
[2022-11-11] MEDS: fentaNYL 100 MCG/2 ML INJ 50 MCG IV (02:48)
== END 2022-11-11 06:19 | disposition short-term general hospital (02) ==
PROVIDERS: Emergency Provider Emergency Medicine; PCP Internal Medicine
DX: S72.002A Fracture of unspecified part of neck of left femur, initial encounter for closed fracture (principal); S83.92XA Sprain of unspecified site of left knee, initial encounter; D63.8 Anemia in other chronic diseases classified elsewhere; W18.30XA Fall on same level, unspecified, initial encounter; Z20.822 Contact with and (suspected) exposure to COVID-19
CPT/HCPCS: 36415; 73502; 73560; 80053; 85025; 87635; 93005; 93010; 96374; 99284; 99285; C9803; J3010

== ENCOUNTER 2022-12-11 15:48 | Emergency (ER) | payer MEDICARE, SELFPAY ==
[2021-10-10 21:04] VITALS: BMI 23.5
[2022-12-11] VITALS (31 sets, daily range): BP systolic 100–164; BP diastolic 46–78; PULSE 67–92; RESP 14–16; TEMP 36.3–36.5; O2SAT 90–100; BMI 21.6
--- NOTE | 2022-12-11 16:09 | ED.GENADULT ---
HPI - General Adult <Carrington Mark DO - Last Filed: 12/12/22 08:13> General Chief complaint: Recheck/Abnormal Lab/Rx Stated complaint: Needs blood transfusion Time Seen by Provider: 12/11/22 15:59 History of Present Illness HPI narrative: 87-year-old female former smoker with history of GI bleed, anemia, AVM of the colon, hypertension presents by EMS for evaluation of low blood count with recent transfusions. She is had a history of multiple transfusions and states that since she had her AVM repair at the [facility] it has been happening with increasing frequency. She had a recent hip surgery and is rehabbing at a local facility in had recent blood work noting a hemoglobin of 7.1. She is not dizzy nor weak or lightheaded. She denies chest pain or shortness of breath. Related Data Home Medications Medication Instructions Recorded Confirmed lisinopril 10 mg tablet 20 mg PO QAM ##0 08/15/17 10/11/22 ferrous sulfate 325 mg (65 mg 325 mg PO DAILY 11/25/20 10/11/22 iron) tablet (Iron (ferrous sulfate)) rosuvastatin 20 mg tablet 20 mg PO QPM 08/19/21 10/11/22 pantoprazole 40 mg tablet,delayed 40 mg PO BID 10/10/21 10/11/22 release ascorbic acid (vitamin C) 500 mg 500 mg PO DAILY 02/22/22 10/11/22 tablet (Vitamin C) vitamin B complex 1 cap PO DAILY 02/22/22 10/11/22 Allergies Allergy/AdvReac Type Severity Reaction Status Date / Time ezetimibe [EZETIMIBE] Allergy Unknown Verified 09/08/21 10:27 simvastatin [SIMVASTATIN] AdvReac Intermediate MYALGIAS Verified 09/08/21 10:27 Review of Systems <Carrington Mark DO - Last Filed: 12/12/22 08:13> Review of Systems Narrative: GENERAL: Denies chills, fatigue, malaise, fever, sweats. HEENT: Denies sinus pain, ear pain, sore throat, difficulty swallowing, dizziness. RESPIRATORY: Denies dyspnea, cough, wheezing, hemoptysis, sputum. CARDIOVASCULAR: Denies chest pain, palpitations, orthopnea, edema, GASTROINTESTINAL: Denies nausea, vomiting, abdominal pain, diarrhea, constipation, melena. : Denies dysuria, frequency, incontinence, hematuria, urinary retention. MUSCULOSKELETAL: denies weakness, joint pain, or bony pain SKIN: Denies rash, skin lesions, or other NEUROLOGIC: Denies weakness, headache, numbness, change in speech, confusion, seizures, incoordination. PSYCHIATRIC: No concerning psychosocial issues. 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 Gastritis GI bleed History of colon cancer, stage II History of complete heart block History of Helicobacter pylori infection Hyperlipidemia Hypertension LVH (left ventricular hypertrophy) due to hypertensive disease Pacemaker PUD (peptic ulcer disease) Recurrent gastrointestinal hemorrhage Severe aortic stenosis Surgical History History of aortic valve replacement History of hemicolectomy S/P TAVR (transcatheter aortic valve replacement) Family History Other Adopted Social History household members: none Smoking Status: Former smoker alcohol intake: current Smoking Status: Former smoker alcohol intake frequency: a few times a month Substance Use Type: does not use Exam <Carrington Mark DO - Last Filed: 12/12/22 08:13> Narrative Exam Narrative: GENERAL: [87] year old patient appears stated age. Well-developed patient, in mild distress. HEAD: Atraumatic. Normocephalic. EYES: Pupils equal round and reactive. Extraocular motions intact. No scleral icterus. No injection or drainage. ENT: Nose without bleeding, purulent drainage. Throat without erythema, tonsillar hypertrophy or exudate. Airway patent. NECK: Trachea midline. Non tender CARDIOVASCULAR: Regular rate and rhythm without murmurs, gallops, or rubs. RESPIRATORY: Clear to auscultation. Breath sounds equal bilaterally. No wheezes, rales, or rhonchi. GASTROINTESTINAL: Abdomen soft, non-tender, nondistended. EXTREMITIES: No edema or joint tenderness. BACK: Nontender without deformity or crepitance. No flank tenderness. NEURO: AOx3. SKIN: No rash or erythema of visible areas Initial Vital Signs Initial Vital Signs: Vital Signs Temperature 97.4 F L 12/11/22 16:13 Pulse Rate 76 12/11/22 16:13 Respiratory Rate 16 12/11/22 16:13 Blood Pressure 139/49 L 12/11/22 16:13 Pulse Oximetry 97 12/11/22 16:13 Oxygen Delivery Method Room Air 12/11/22 16:13 <Dheeraj Weber DO - Last Filed: 12/12/22 00:58> Initial Vital Signs Initial Vital Signs: Vital Signs Temperature 97.4 F L 12/11/22 16:13 Pulse Rate 76 12/11/22 16:13 Respiratory Rate 16 12/11/22 16:13 Blood Pressure 139/49 L 12/11/22 16:13 Pulse Oximetry 97 12/11/22 16:13 Oxygen Delivery Method Room Air 12/11/22 16:13 Course <DO Jaciel Engle Last Filed: 12/12/22 08:13> Orders Ordered: Discontinued Medications Ondansetron HCl (Ondansetron 4 Mg/2 Ml Inj) 4 mg IV NOW PRN PRN Reason: Nausea And Vomiting Ondansetron HCl (Ondansetron 4 Mg Odt) 4 mg SL NOW PRN PRN Reason: Nausea And Vomiting Vital Signs Vital signs: Vital Signs - 8 hr 12/12/22 00:15 Temperature 98.3 F Pulse Rate 84 Respiratory Rate 16 Blood Pressure 158/76 H <DO Jaciel Guzmán Last Filed: 12/12/22 00:58> Orders Ordered: Discontinued Medications Ondansetron HCl (Ondansetron 4 Mg/2 Ml Inj) 4 mg IV NOW PRN PRN Reason: Nausea And Vomiting Ondansetron HCl (Ondansetron 4 Mg Odt) 4 mg SL NOW PRN PRN Reason: Nausea And Vomiting Vital Signs Vital signs: Vital Signs - 8 hr 12/12/22 00:15 Temperature 98.3 F Pulse Rate 84 Respiratory Rate 16 Blood Pressure 158/76 H Medical Decision Making <DO Jaciel Engle Last Filed: 12/12/22 08:13> Lab Data 12/11/22 16:09 12/11/22 16:09 Labs: Lab Results 04/06/2512/11/22 12/11/22 Range/Units 16:09 16:09 16:09 WBC 5.0 (4.5-11.0) X10^3/uL RBC 2.31 L (4.0-5.2) X10^6/uL Hgb 6.7 L* (12.0-16.0) g/dL Hct 20.0 L* (36-46) % MCV 86.5 (80-100) fL MCH 29.0 (26-34) PG MCHC 33.5 (30-36) % RDW 18.2 H (11.6-14.8) % Plt Count 282 (150-400) X10^3/uL Neut % (Auto) 78.9 H (50-75) % Lymph % (Auto) 10.7 L (25-40) % Roosevelt % (Auto) 6.9 (3-14) % Eos % (Auto) 2.3 (2-4) % Baso % (Auto) 1.2 (0-2) % Neut # (Auto) 3900 (2703-1402) /uL Lymph # (Auto) 500 L (9313-7843) /uL Roosevelt # (Auto) 300 (0-900) /uL Eos # (Auto) 100 (0-450) /uL Baso # (Auto) 100 (0-100) /uL PT 12.6 (10.1-12.7) SECONDS INR 1.1 (0.9-1.3) APTT 36 (26-36) SECONDS Sodium 126 L (137-145) mmol/L Potassium 4.9 (3.4-5.1) mmol/L Chloride 98 (98-107) mmol/L Carbon Dioxide 21 L (22-32) mmol/L BUN 36 H (7-17) mg/dL Creatinine 1.13 H (0.52-1.04) mg/dL Estimated GFR 47 L (>60) mL/min BUN/Creatinine Ratio 31.9 H (6-22) Glucose 117 H (80-110) mg/dL Calcium 8.9 (8.4-10.2) mg/dL Total Bilirubin 0.3 (0.2-1.3) mg/dL AST 30 (14-36) IU/L ALT 22 (<35) IU/L Alkaline Phosphatase 113 (38-126) U/L Total Protein 7.0 (6.3-8.2) g/dL Albumin 3.5 (3.5-5.0) g/dL Globulin 3.5 (1.7-4.1) g/dL Albumin/Globulin Ratio 1.0 (1.0-2.8) Blood Type Antibody Screen Antibody Identification Crossmatch 12/11/22 Range/Units 16:09 WBC (4.5-11.0) X10^3/uL RBC (4.0-5.2) X10^6/uL Hgb (12.0-16.0) g/dL Hct (36-46) % MCV (80-100) fL MCH (26-34) PG MCHC (30-36) % RDW (11.6-14.8) % Plt Count (150-400) X10^3/uL Neut % (Auto) (50-75) % Lymph % (Auto) (25-40) % Roosevelt % (Auto) (3-14) % Eos % (Auto) (2-4) % Baso % (Auto) (0-2) % Neut # (Auto) (1175-6970) /uL Lymph # (Auto) (3606-9067) /uL Roosevelt # (Auto) (0-900) /uL Eos # (Auto) (0-450) /uL Baso # (Auto) (0-100) /uL PT (10.1-12.7) SECONDS INR (0.9-1.3) APTT (26-36) SECONDS Sodium (137-145) mmol/L Potassium (3.4-5.1) mmol/L Chloride (98-107) mmol/L Carbon Dioxide (22-32) mmol/L BUN (7-17) mg/dL Creatinine (0.52-1.04) mg/dL Estimated GFR (>60) mL/min BUN/Creatinine Ratio (6-22) Glucose (80-110) mg/dL Calcium (8.4-10.2) mg/dL Total Bilirubin (0.2-1.3) mg/dL AST (14-36) IU/L ALT (<35) IU/L Alkaline Phosphatase (38-126) U/L Total Protein (6.3-8.2) g/dL Albumin (3.5-5.0) g/dL Globulin (1.7-4.1) g/dL Albumin/Globulin Ratio (1.0-2.8) Blood Type AB Positive Antibody Screen Positive Antibody Identification Anti-M Crossmatch See Detail <Dheeraj Weber DO - Last Filed: 12/12/22 00:58> Lab Data Lab results reviewed: Yes I reviewed the patient's lab results. Labs: Lab Results 12/11/22 12/11/22 12/11/22 Range/Units 16:09 16:09 16:09 WBC 5.0 (4.5-11.0) X10^3/uL RBC 2.31 L (4.0-5.2) X10^6/uL Hgb 6.7 L* (12.0-16.0) g/dL Hct 20.0 L* (36-46) % MCV 86.5 (80-100) fL MCH 29.0 (26-34) PG MCHC 33.5 (30-36) % RDW 18.2 H (11.6-14.8) % Plt Count 282 (150-400) X10^3/uL Neut % (Auto) 78.9 H (50-75) % Lymph % (Auto) 10.7 L (25-40) % Roosevelt % (Auto) 6.9 (3-14) % Eos % (Auto) 2.3 (2-4) % Baso % (Auto) 1.2 (0-2) % Neut # (Auto) 3900 (5765-4053) /uL Lymph # (Auto) 500 L (4395-4453) /uL Roosevelt # (Auto) 300 (0-900) /uL Eos # (Auto) 100 (0-450) /uL Baso # (Auto) 100 (0-100) /uL PT 12.6 (10.1-12.7) SECONDS INR 1.1 (0.9-1.3) APTT 36 (26-36) SECONDS Sodium 126 L (137-145) mmol/L Potassium 4.9 (3.4-5.1) mmol/L Chloride 98 (98-107) mmol/L Carbon Dioxide 21 L (22-32) mmol/L BUN 36 H (7-17) mg/dL Creatinine 1.13 H (0.52-1.04) mg/dL Estimated GFR 47 L (>60) mL/min BUN/Creatinine Ratio 31.9 H (6-22) Glucose 117 H (80-110) mg/dL Calcium 8.9 (8.4-10.2) mg/dL Total Bilirubin 0.3 (0.2-1.3) mg/dL AST 30 (14-36) IU/L ALT 22 (<35) IU/L Alkaline Phosphatase 113 (38-126) U/L Total Protein 7.0 (6.3-8.2) g/dL Albumin 3.5 (3.5-5.0) g/dL Globulin 3.5 (1.7-4.1) g/dL Albumin/Globulin Ratio 1.0 (1.0-2.8) Blood Type Antibody Screen Antibody Identification Crossmatch 12/11/22 Range/Units 16:09 WBC (4.5-11.0) X10^3/uL RBC (4.0-5.2) X10^6/uL Hgb (12.0-16.0) g/dL Hct (36-46) % MCV (80-100) fL MCH (26-34) PG MCHC (30-36) % RDW (11.6-14.8) % Plt Count (150-400) X10^3/uL Neut % (Auto) (50-75) % Lymph % (Auto) (25-40) % Roosevelt % (Auto) (3-14) % Eos % (Auto) (2-4) % Baso % (Auto) (0-2) % Neut # (Auto) (9550-5440) /uL Lymph # (Auto) (0255-3083) /uL Roosevelt # (Auto) (0-900) /uL Eos # (Auto) (0-450) /uL Baso # (Auto) (0-100) /uL PT (10.1-12.7) SECONDS INR (0.9-1.3) APTT (26-36) SECONDS Sodium (137-145) mmol/L Potassium (3.4-5.1) mmol/L Chloride (98-107) mmol/L Carbon Dioxide (22-32) mmol/L BUN (7-17) mg/dL Creatinine (0.52-1.04) mg/dL Estimated GFR (>60) mL/min BUN/Creatinine Ratio (6-22) Glucose (80-110) mg/dL Calcium (8.4-10.2) mg/dL Total Bilirubin (0.2-1.3) mg/dL AST (14-36) IU/L ALT (<35) IU/L Alkaline Phosphatase (38-126) U/L Total Protein (6.3-8.2) g/dL Albumin (3.5-5.0) g/dL Globulin (1.7-4.1) g/dL Albumin/Globulin Ratio (1.0-2.8) Blood Type AB Positive Antibody Screen Positive Antibody Identification Anti-M Crossmatch See Detail MDM Narrative Medical decision making narrative: Dr Weber: Received turned over. Review patient's history and physical workup up to this point. Patient is anemic. Has had issues with anemia in the past and has had multiple blood transfusions. Patient has received 2 units of packed red blood cells. She is relatively asymptomatic from this anemia. Patient states she feels had baseline. We will discharge patient back to her living facility to follow-up with her primary doctor for further evaluation if needed. Discharge Plan Departure Patient Disposition: Home Clinical Impression: Anemia Instructions: DI for Blood Transfusion Activity Restrictions/Additional Instructions: Recommend that you continue to take all of your medications as directed and I also recommend that she have a follow-up with her primary doctor within the next couple days. Return to the emergency department for new symptoms. Prescriptions: No Action lisinopril 10 MG tablet 20 mg PO QAM Qty: 0 ferrous sulfate [Iron (ferrous sulfate)] 325 mg (65 mg iron) Tablet 325 mg PO DAILY Rx Instructions: pt takes at lunch rosuvastatin 20 mg tablet 20 mg PO QPM ascorbic acid (vitamin C) [Vitamin C] 500 mg Tablet 500 mg PO DAILY vitamin B complex Capsule 1 cap PO DAILY pantoprazole 40 mg Tablet,Delayed Release (Dr/Ec) 40 mg PO BID Referrals: Nichol Root MD [Primary Care Provider] - Stand Alone Forms: Patient Portal/API
[2022-12-11 16:29] LABS: Add Manual Diff / Slide Review NO; Basophils Absolute Auto 100 /uL (0-100); Basophils Percent Auto 1.2 % (0-2); Eosinophils Absolute Auto 100 /uL (0-450); Eosinophils Percent Auto 2.3 % (2-4); Lymphocytes Absolute Auto 500 /uL (1100-4500); Lymphocytes Percent Auto 10.7 % (25-40); Mean Corpuscular HGB Conc 33.5 % (30-36); Mean Corpuscular Volume 86.5 fL (80-100); Monocytes Absolute Auto 300 /uL (0-900); Monocytes Percent Auto 6.9 % (3-14); Neutrophils Absolute Auto 3900 /uL (1500-7000); Neutrophils Percent Auto 78.9 % (50-75); Platelet Count 282 X10^3/uL (150-400); Red Blood Cell Count 2.31 X10^6/uL (4.0-5.2); Red Cell Distribution Width 18.2 % (11.6-14.8)
[2022-12-11 16:30] LABS: Hemoglobin 6.7 g/dL (12.0-16.0)
[2022-12-11 16:37] LABS: INR 1.1 (0.9-1.3); Prothrombin Time 12.6 SECONDS (10.1-12.7)
[2022-12-11 16:40] LABS: PTT Partial Thromboplastin Tim 36 SECONDS (26-36)
[2022-12-11 16:44] LABS: Alanine Aminotransferase 22 IU/L (<35); Albumin 3.5 g/dL (3.5-5.0); Alkaline Phosphatase 113 U/L (38-126); Aspartate Aminotransferase 30 IU/L (14-36); BUN Creatinine Ratio 31.9 (6-22); Bilirubin Total 0.3 mg/dL (0.2-1.3); Blood Urea Nitrogen 36 mg/dL (7-17); Calcium 8.9 mg/dL (8.4-10.2); Carbon Dioxide 21 mmol/L (22-32); Chloride 98 mmol/L (98-107); Estimated Glomerular Filt Rate 47 mL/min (>60); Globulin 3.5 g/dL (1.7-4.1); Glucose 117 mg/dL (80-110); HEMOLYSIS < 15 (0-50); Potassium 4.9 mmol/L (3.4-5.1); Sodium 126 mmol/L (137-145)
--- NOTE | 2022-12-11 17:07 | PC.NURSE ---
Addendum entered by Madisyn Sinclair R.N. 12/11/22 19:15: Due to speed at which infusion must be given, blood did not get to patients body for 15 minutes so 15 minute check is at the 30 minute anita during total transfusion time. Original Note: Educated patient on time line for blood transfusion and why she will be here for several hours. Patient given dinner tray and is sitting on the edge of the bed to eat.
[2022-12-12] VITALS: BP 158/67; PULSE 89; O2SAT 99
[2022-12-12 00:15] VITALS: BP 158/76; PULSE 84; RESP 16; TEMP 36.8
== END 2022-12-12 00:59 | disposition home or self-care (01) ==
PROVIDERS: Emergency Medicine; Emergency Provider Emergency Medicine; PCP Internal Medicine
DX: D64.9 Anemia, unspecified (principal)
CPT/HCPCS: 36415; 36430; 80053; 85025; 85610; 85730; 86850; 86870; 86900; 86901; 99284; P9016